=== PATIENT | male | born 1950 | race Caucasian/White ===

== ENCOUNTER → 2018-03-09 11:44 | Outpatient (CLI) | payer MEDICARE, OTHER, SELFPAY ==
[2018-03-09 15:30] LABS: Absolute Lymphocyte Count 1.96 X10^3/ul (0.83-4.51); Absolute Neutrophil Count 3.9 X10^3/uL (2.0-7.7); Basophil# 0.04 X10^3/uL; Basophil% 0.6 % (0-1); Eosinophil# 0.17 X10^3/uL; Eosinophils% 2.5 % (0-5); Hematocrit 44.3 % (40-54); Hemoglobin 14.6 g/dl (13.0-16.5); Lymphocyte # 1.96 X10^3/ul (4.0); Lymphocyte % 28.7 % (19-41); Mean Corpuscular Hgb 31.1 pg (27.0-32.0); Mean Corpuscular Volume 94.5 fL (80-94); Mean Platelet Vol. 11.4 fl (6.2-12.0); Monocyte# 0.69 X10^3/uL; Monocyte% 10.1 % (0-10); Neutrophil # 3.94 X10^3/uL (2.7-7.7); Neutrophil % 57.8 % (47-70); Platelet Count 182 K/mm3 (150-450); RBC Distribution Width SD 43.6 fl (35.1-43.9); Red Blood Count 4.69 M/mm3 (4.6-6.2); White Blood Count 6.8 K/mm3 (4.4-11.0)
[2018-03-09 15:45] LABS: Anion Gap 7 (5-15); BUN 19 mg/dL (7-18); BUN/Creat Ratio 16.4 RATIO (10-20); Calcium,Total 8.4 mg/dL (8.5-10.1); Chloride 103 mmol/L (98-107); Cholesterol 185 mg/dL (200); Creatinine, Serum 1.16 mg/dL (0.70-1.30); EST Glomerular Filtration Rate 66 mL/min (>60); Est Glom Filt Rate - Afr Amer 80 mL/min (>60); Glucose 95 mg/dL (74-106); High Density Lipoprotein 58 mg/dL; Sodium Level 140 mmol/L (136-145); Thyroid Stim Hormone (TSH) 1.61 uIU/mL (0.358-3.74); Triglycerides 105 mg/dL; Very Low Density Lipoprotein 21 mg/dL (5-40)
[2018-03-09 15:51] LABS: POSITIVE COUNT NO; POSITIVE DIFFERENTIAL NO; POSITIVE MORPHOLOGY NO
== END ==
PROVIDERS: Family Provider Family Medicine; PCP Family Medicine; Visit Provider Family Medicine
DX: I10 Essential (primary) hypertension (principal)
CPT/HCPCS: 36415; 80048; 80061; 84443; 85025

== ENCOUNTER → 2019-03-15 | Outpatient (CLI) | payer MEDICARE, SELFPAY ==
[2019-03-15 12:29] LABS: Anion Gap 5 (5-15); BUN 27 mg/dL (7-18); BUN/Creat Ratio 21.3 RATIO (10-20); Calcium,Total 8.6 mg/dL (8.5-10.1); Chloride 102 mmol/L (98-107); Cholesterol 211 mg/dL (200); Creatinine, Serum 1.27 mg/dL (0.70-1.30); EST Glomerular Filtration Rate 59 mL/min (>60); Est Glom Filt Rate - Afr Amer 72 mL/min (>60); Glucose 103 mg/dL (74-106); High Density Lipoprotein 51 mg/dL; PSA,Total - Annual Screen 0.67 ng/mL (0.00-4.00); Potassium 4.3 mmol/L (3.5-5.1); Sodium Level 137 mmol/L (136-145); Triglycerides 120 mg/dL; Very Low Density Lipoprotein 24 mg/dL (5-40)
== END | disposition home or self-care (01) ==
PROVIDERS: Family Provider Family Medicine; PCP Family Medicine; Referring Provider Family Medicine; Visit Provider Family Medicine
DX: Z00.00 Encounter for general adult medical examination without abnormal findings (principal); I10 Essential (primary) hypertension; Z12.5 Encounter for screening for malignant neoplasm of prostate
CPT/HCPCS: 36415; 80048; 80061; 84153; G0103

== ENCOUNTER 2019-07-11 06:18 | Day surgery (SDC) | payer MEDICARE, OTHER, SELFPAY ==
[2019-07-11] VITALS (7 sets, daily range): BP systolic 104–143; BP diastolic 62–76; PULSE 59–62; RESP 16; TEMP 36.7–37.2; O2SAT 97–100; BMI 29.2
--- NOTE | 2019-07-11 07:02 | H&P.OPEN ---
History of Present Illness Date of Admission: 07/11/19 The patient is a 69 year old M who presents for a colonoscopy. His last colonoscopy was 3 years ago and he was noted to have a polyp at that time. Past Medical/Surgical History - Planned Operation Planned Operative Procedure/s: cscope open access Date of Operative Procedure: 07/11/19 Permit Signed: No S.O.S: No Is This Patient Having a Total Joint: No - Previous Hospitalizations/Surgeries HX Hospitalizations: No HX of Surgeries: cscope Any Problems With Anesthesia: No You/Your Family Experience Fever (Hyperthermia) With Anes: No Cholinesterase deficiency: No - Cardiovascular Hx Chest Pain within Last 2 months: No Hx of Irregular Heartbeat and/or Afib: No Hx Heart Attack: No Hx Congestive Heart Failure: No Hx Rheumatic Fever: No Hx Hypertension: Yes - controlled with med Hx Internal Defibrillator: No Hx Pacemaker: No Hx Cardiac Catheterization: No Hx Cardiac Surgery/Stents/Etc.: No Hx Stress Test: No HX Edema: No Hx Pain in Legs when Walking/Leg Cramps: No - Respiratory Chronic Cough: No HX of Shortness of Breath: No Hoarseness: No Hx Chronic Obstructive Pulmonary Disease (COPD): No Hx Asthma: No Hx Emphysema: No Hx Sleep Apnea: No Hx Oxygen Use at Home: No Hx Respiratory Tract Infection/Cold (presently): No Do You Snore Loudly (louder than talking or can be heard): No Do You Often Feel Tired/ Fatigued/ Sleepy Dring Daytime?: No Has Anyone Observed You Stop Breathing During Sleep?: No Result (for STOP score): Negative Hx Smoking: Yes - quit 29 yrs ago Smoking Status: Former smoker - Gastrointestinal Hx Gastroesophageal Reflux: No Hx Gastrointestinal Disorders: No Hx Gastrointestinal Bleed: No Hx Ulcer: No Hx Hiatal Hernia: No Difficulty Chewing/Swallowing: No Recent Onset of Swallowing Problems: No Special diet followed at home: No Hx Unplanned Weight Loss of 20#: No HX Unplanned Weight Gain of 20#: No - Neurological Hx Seizures: No HX Syncope/Blackout Spells/Unconsciousness: No Hx CVA/Stroke: No Hx Transient Ischemic Attacks (TIA): No Hx Multiple Sclerosis: No Hx Parkinson's Disease: No Hx Head/Neck Injury: No Hx Headaches: No Hx Back Injury/Pain: No Recent Onset of Speech Difficulty: No Restless Legs: No Does patient have nerve stimulator: No Patient instructed to have device shut off: No Rep notified?: No - Blood Disorder Hx Leukemia: No Bleeding Tendencies: No Hx Deep Vein Thrombosis: No Hx High Cholesterol: No Blood Transmitted Disease: No Hx Hepatitis: No Hx Cirrhosis: No Hx Anemia: No Hx Blood Disorders: No - Genitourinary Hx Renal Disease: No - Musculoskeletal Hx Arthritis: No Hx Rheumatoid Arthritis: No Hx Gout: No Recent Onset of an Orthopedic Problem: No - Endocrine Hx Diabetes: No Thyroid Disease: No Hx Steroid Therapy: No - Psycho/Social Hx Substance Use: No Hx Alcohol Use: Yes - occ Hx Anxiety: No Hx Depression: No Mental Illness: No Hx Dementia: No - Miscellaneous Hx Cancer: No Recent Exposure to Contagious Disease: No Active MRSA: No Hx of C-Diff: No Any Loose Teeth: No - full denture Allergies No Known Allergies Allergy (Verified 07/07/19 14:27) - Discharge Is Pt Admitted From a Half-Way, or a Fpc: No Who Could Help: family After D/C, Where Do you Plan to Go: Return Home - From the PAT History Number of Risk Factors: 1 - Physical Exam General: Alert, Oriented x3 Lungs: Clear to auscultation Cardiovascular: Regular rate, Regular Rhythm, No murmurs Abdomen: Bowel Sounds Present, Soft, Non Tender, Non-Distended Vital Signs Temp Pulse Resp BP Pulse Ox 98.3 F 61 16 143/72 H 100 07/11/19 06:40 07/11/19 06:40 07/11/19 06:40 07/11/19 06:40 07/11/19 06:40 Oxygen Delivery Method Room Air Weight: 210 lb 1.608 oz Body Mass Index (BMI) 29.2 Assessment/Plan Plan will be to perform a colonoscopy. Surgery Risks - Colonoscopy Risks Include but are not Limited To: Risks include but are not limited to: Bleeding, perforation requiring further surgery, inability to complete colonoscopy requiring barium enema.
--- NOTE | 2019-07-11 07:27 | OP.ENDO_ITS ---
07/11/2019 Radha Schulz [address] [place] [address] Re : Colonoscopy procedure for Jose Piper Dear Dr. Schulz This procedure was performed on Thursday, July 11, 2019. My impressions and recommendations are as follows: Impressions : - Diverticulosis in the sigmoid colon, in the descending colon, in the transverse colon and in the ascending colon. No specimens collected. - One 4 mm polyp in the sigmoid colon, removed with a jumbo cold forceps. Resected and retrieved. - The examination was otherwise normal. - The examined portion of the ileum was normal. Recommendations : - Discharge patient to home. - Resume previous diet. - Continue present medications. - Await pathology results. - Repeat colonoscopy in 5 years for surveillance. - Return to my office in 1 week. My findings are described in the full procedure note, which is enclosed. If I can be of further assistance, please feel free to contact me at Doctor phone number(s): , Fax: [phone], Work: . Sincerely, MD Declan Vazquez MD 07/11/2019 7:27:40 AM This report has been signed electronically.
--- NOTE | 2019-07-11 07:30 | COLBX_PTH ---
PATIENT: LIA MEDEL LOC: EN U#:[id number] AGE/SX: 69/M ROOM: RE07/11/[address]: Dr. Declan Freeman MD : [id number] BED: DIS: 07/11/2019 SPEC #: [id number] RECD: 07/11/19 11:26 STATUS: NAWAF DAYO #: [id number] DIVNIA: 07/11/19 07:[address]: Declan Freeman DEPT: SURGICAL PATHOLOGY RECD BY: Matthew Noble ENTERED: 07/11/19 13:36 SP TYPE: COLON BX OTHR DR: Dr. Radha Schulz MD Tissues: Sigmoid colon biopsy Procedures: Surgery Specimen Level IV HEADER OPERATION: Colonoscopy, open access (MAC) PRE-OP DIAGNOSIS: Screening colonoscopy, status post history of colon polyp TISSUE SUBMITTED: Polyp at sigmoid MICROSCOPIC DIAGNOSIS Sigmoid colon polyp, biopsy: Fragments of hyperplastic polyp. AM:dm 07/12/2019 MICROSCOPIC DESCRIPTION Slides are reviewed. GROSS DESCRIPTION Received is one container labeled with the patient name and designated polypoid sigmoid. The specimen consists of multiple fragments of light leahy soft tissue that in aggregate measure 1 x 0.3 x 0.1cm. The specimen is totally submitted in one cassette. /SJ:sp 07/11/19 TC: 5 CPT:97419
== END 2019-07-11 08:05 | disposition home or self-care (01) ==
LOC: EN 06:20 → AC 06:23
PROVIDERS: Family Provider Family Medicine; PCP Family Medicine; Referring Provider Family Medicine; Visit Provider Surgery
PROC: 0DJD8ZZ Inspection of Lower Intestinal Tract, Via Natural or Artificial Opening Endoscopic (ICD-10-PCS; CPT 45378; principal; 2019-07-11 07:25)
DX: Z12.11 Encounter for screening for malignant neoplasm of colon (principal); K63.5 Polyp of colon; K57.30 Diverticulosis of large intestine without perforation or abscess without bleeding; Z86.010 Personal history of colon polyps; I10 Essential (primary) hypertension; Z79.899 Other long term (current) drug therapy; Z87.891 Personal history of nicotine dependence
CPT/HCPCS: 45380; 88305; J7120

== ENCOUNTER → 2019-08-19 | Outpatient (CLI) | payer MEDICARE, OTHER, SELFPAY ==
[2019-07-11 06:40] VITALS: BMI 29.2
--- NOTE | 2019-08-19 13:02 | VDLE_ITS ---
Reason For Study: Lt leg pain RIGHT LEFT CFV is compressible, spontaneous, phasic, GSV is normal. competent and demonstrates normal CFV is compressible, spontaneous, phasic, augmentation. competent, and demonstrates normal Procedure augmentation. Exam performed in department. FV is compressible, spontaneous, phasic, A preliminary report was called and/or faxed competent and demonstrates normal to Jazz. augmentation. POP V is compressible, spontaneous, phasic, competent and demonstrates normal augmentation. T/P Trunk is compressible. PTV is compressible. LT PerV is compressible. Thrombus filled varicose veins extending from the posterior lateral popliteal space to the posterior proximal calf. Interpretation Summary Deep veins of the left lower extremity are patent and compressible segmentally. There is no evidence of left lower extremity deep vein thrombosis. Valvular competence appears intact within the proximal deep venous system on the left . The left great saphenous vein appears patent and compressible segmentally. Acute superficial thrombophlebitis is noted involving superficial varicosities in the left lateral popliteal space and posterior proximal calf. Ordering Physician: Radha Schulz Referring Physician: Radha Schulz Performed By: Cece Tapia RVT
== END | disposition home or self-care (01) ==
LOC: CVS 12:59
PROVIDERS: Family Provider Family Medicine; PCP Family Medicine; Referring Provider Family Medicine; Visit Provider Family Medicine
DX: M79.605 Pain in left leg (principal)
CPT/HCPCS: 93971

== ENCOUNTER → 2019-09-12 | Outpatient (CLI) | payer MEDICARE, OTHER, SELFPAY ==
[2019-07-11 06:40] VITALS: BMI 29.2
[2019-09-12 12:36] LABS: Anion Gap 5 (5-15); BUN 27 mg/dL (7-18); Calcium,Total 8.6 mg/dL (8.5-10.1); Chloride 104 mmol/L (98-107); Creatinine, Serum 1.35 mg/dL (0.70-1.30); EST Glomerular Filtration Rate 55 mL/min (>60); Est Glom Filt Rate - Afr Amer 67 mL/min (>60); Glucose 102 mg/dL (74-106); Potassium 4.7 mmol/L (3.5-5.1); Sodium Level 139 mmol/L (136-145)
== END | disposition home or self-care (01) ==
LOC: MFPLAB 10:13
PROVIDERS: Family Provider Family Medicine; PCP Family Medicine; Visit Provider Family Medicine
DX: I10 Essential (primary) hypertension (principal)
CPT/HCPCS: 36415; 80048

== ENCOUNTER → 2019-12-26 | Outpatient (CLI) | payer MEDICARE, OTHER, SELFPAY ==
[2019-07-11 06:40] VITALS: BMI 29.2
[2019-12-26 15:57] LABS: Anion Gap 5 (5-15); BUN 34 mg/dL (7-18); BUN/Creat Ratio 21.2 RATIO (10-20); Calcium,Total 9.1 mg/dL (8.5-10.1); Chloride 107 mmol/L (98-107); EST Glomerular Filtration Rate 45 mL/min (>60); Est Glom Filt Rate - Afr Amer 55 mL/min (>60); Glucose 90 mg/dL (74-106); Potassium 4.4 mmol/L (3.5-5.1); Sodium Level 139 mmol/L (136-145)
== END | disposition home or self-care (01) ==
LOC: MFPLAB 14:25
PROVIDERS: PCP Family Medicine; Referring Provider Family Medicine; Visit Provider Family Medicine
DX: I10 Essential (primary) hypertension (principal)
CPT/HCPCS: 36415; 80048

== ENCOUNTER → 2020-04-03 15:58 | Outpatient (CLI) | payer MEDICARE, OTHER, SELFPAY ==
[2019-07-11 06:40] VITALS: BMI 29.2
[2020-04-03 17:43] LABS: Absolute Lymphocyte Count 1.48 X10^3/uL (0.83-4.51); Absolute Neutrophil Count 4.2 X10^3/uL (2.0-7.7); Basophil# 0.05 X10^3/uL; Basophil% 0.8 % (0-1); Eosinophil# 0.19 X10^3/uL; Eosinophils% 2.9 % (0-5); Hematocrit 40.1 % (40-54); Lymphocyte # 1.48 X10^3/ul (4.0); Lymphocyte % 22.6 % (19-41); Mean Corp Hgb Conc 32.4 g/dL (32-36); Mean Corpuscular Volume 95.7 fL (80-94); Mean Platelet Vol. 11.1 fl (6.2-12.0); Monocyte# 0.63 X10^3/uL; Monocyte% 9.6 % (0-10); NRBC Flagged by Analyzer 0 % (0-5); Neutrophil # 4.19 X10^3/uL (2.7-7.7); Neutrophil % 63.8 % (47-70); Platelet Count 193 K/mm3 (150-450); RBC Distribution Width CV 12.6 % (11.6-14.6); RBC Distribution Width SD 44.2 fl (35.1-43.9); Red Blood Count 4.19 M/mm3 (4.6-6.2); White Blood Count 6.6 K/mm3 (4.4-11.0)
[2020-04-03 18:15] LABS: Anion Gap 6 (5-15); BUN 30 mg/dL (7-18); BUN/Creat Ratio 20.5 RATIO (10-20); Calcium,Total 8.9 mg/dL (8.5-10.1); Chloride 107 mmol/L (98-107); Creatinine, Serum 1.46 mg/dL (0.70-1.30); EST Glomerular Filtration Rate 50 mL/min (>60); Est Glom Filt Rate - Afr Amer 61 mL/min (>60); Glucose 94 mg/dL (74-106); Potassium 4.2 mmol/L (3.5-5.1); Sodium Level 140 mmol/L (136-145)
== END ==
PROVIDERS: PCP Family Medicine; Visit Provider Family Medicine
DX: R42 Dizziness and giddiness (principal)
CPT/HCPCS: 36415; 80048; 84443; 85025

== ENCOUNTER → 2020-08-10 | Outpatient (CLI) | payer MEDICARE, OTHER, SELFPAY ==
[2019-07-11 06:40] VITALS: BMI 29.2
[2020-08-10 12:43] LABS: Anion Gap 3 (5-15); BUN 23 mg/dL (7-18); Calcium,Total 9.1 mg/dL (8.5-10.1); Chloride 105 mmol/L (98-107); Cholesterol 207 mg/dL (200); Creatinine, Serum 1.35 mg/dL (0.70-1.30); EST Glomerular Filtration Rate 55 mL/min (>60); Est Glom Filt Rate - Afr Amer 67 mL/min (>60); Glucose 99 mg/dL (74-106); High Density Lipoprotein 66 mg/dL; PSA,Total - Annual Screen 0.67 ng/mL (0.00-4.00); Potassium 4.5 mmol/L (3.5-5.1); Sodium Level 138 mmol/L (136-145); Triglycerides 104 mg/dL; Very Low Density Lipoprotein 21 mg/dL (5-40)
== END | disposition home or self-care (01) ==
LOC: MFPLAB 10:37
PROVIDERS: PCP Family Medicine; Referring Provider Family Medicine; Visit Provider Family Medicine
DX: I10 Essential (primary) hypertension (principal); Z12.5 Encounter for screening for malignant neoplasm of prostate
CPT/HCPCS: 36415; 80048; 80061; 84153; G0103

== ENCOUNTER → 2020-10-30 | Outpatient (CLI) | payer MEDICARE, OTHER, SELFPAY ==
[2019-07-11 06:40] VITALS: BMI 29.2
== END | disposition home or self-care (01) ==
PROVIDERS: PCP Family Medicine; Referring Provider Family Medicine; Visit Provider Family Medicine
DX: U07.1 COVID-19 (principal)
CPT/HCPCS: 87635; U0003

== ENCOUNTER → 2021-02-08 10:53 | Outpatient (CLI) | payer MEDICARE, OTHER, SELFPAY ==
[2019-07-11 06:40] VITALS: BMI 29.2
[2021-02-08 12:14] LABS: Anion Gap 6 (5-15); BUN 28 mg/dL (7-18); BUN/Creat Ratio 19.7 RATIO (10-20); Calcium,Total 8.9 mg/dL (8.5-10.1); Chloride 103 mmol/L (98-107); Creatinine, Serum 1.42 mg/dL (0.70-1.30); EST Glomerular Filtration Rate 52 mL/min (>60); Est Glom Filt Rate - Afr Amer 63 mL/min (>60); Glucose 101 mg/dL (74-106); Potassium 4.5 mmol/L (3.5-5.1); Sodium Level 139 mmol/L (136-145)
== END ==
PROVIDERS: PCP Family Medicine; Referring Provider Family Medicine; Visit Provider Family Medicine
DX: I10 Essential (primary) hypertension (principal)
CPT/HCPCS: 36415; 80048

== ENCOUNTER → 2021-08-21 12:07 | Outpatient (CLI) | payer MEDICARE, SELFPAY ==
[2021-08-21 15:37] LABS: Anion Gap 4 (5-15); BUN 24 mg/dL (7-18); BUN/Creat Ratio 17.8 RATIO (10-20); Calcium,Total 8.8 mg/dL (8.5-10.1); Chloride 105 mmol/L (98-107); Cholesterol 187 mg/dL (200); Creatinine, Serum 1.35 mg/dL (0.70-1.30); EST Glomerular Filtration Rate 55 mL/min (>60); Est Glom Filt Rate - Afr Amer 67 mL/min (>60); Glucose 93 mg/dL (74-106); High Density Lipoprotein 63 mg/dL; PSA,Total - Annual Screen 0.73 ng/mL (0.00-4.00); Potassium 4.3 mmol/L (3.5-5.1); Sodium Level 140 mmol/L (136-145); Triglycerides 76 mg/dL; Very Low Density Lipoprotein 15 mg/dL (5-40)
== END ==
PROVIDERS: PCP Family Medicine; Referring Provider Family Medicine; Visit Provider Nurse Practitioner Family
DX: Z00.00 Encounter for general adult medical examination without abnormal findings (principal); Z12.5 Encounter for screening for malignant neoplasm of prostate; Z13.220 Encounter for screening for lipoid disorders
CPT/HCPCS: 36415; 80048; 80061; 84153; G0103

== ENCOUNTER 2021-08-22 14:41 | Observation (INO) | payer MEDICARE, SELFPAY ==
[2021-08-22] VITALS (10 sets, daily range): BP systolic 131–167; BP diastolic 60–107; PULSE 85–112; RESP 12–22; TEMP 36.4–36.8; O2SAT 98–100; BMI 27.6; BMI 26.0
--- NOTE | 2021-08-22 15:00 | RAD_ITS ---
STUDY: X-RAY CHEST REASON FOR EXAM: Male, 71 years old. chest pain TECHNIQUE: AP COMPARISON: None. FINDINGS: EKG leads project over the chest. The lungs are clear and expanded. There is no demonstrated pleural abnormality. Normal size heart. Normal mediastinum and luis. Normal visualized pulmonary arteries. Atherosclerosis of the aortic arch. Normal visualized thoracic spine. Normal visualized ribs, clavicles, and shoulders. There is no demonstrated abnormality of the visualized soft tissue structures of the upper abdomen. RAD/Chest 1 View (Portable) IMPRESSION: Nonacute portable x-ray examination of the chest. Electronically Signed: Christiano Gavin MD ([place]) at 15:40 EDT , Service support ,
[2021-08-22 15:26] LABS: Absolute Lymphocyte Count 1.95 X10^3/uL (0.83-4.51); Absolute Neutrophil Count 5.6 X10^3/uL (2.0-7.7); Basophil# 0.04 X10^3/uL; Basophil% 0.5 % (0-1); Eosinophil# 0.15 X10^3/uL; Eosinophils% 1.8 % (0-5); Hematocrit 42.9 % (40-54); Hemoglobin 14.1 g/dL (13.0-16.5); Lymphocyte # 1.95 X10^3/ul (0.83-4.51); Mean Corp Hgb Conc 32.9 g/dL (32-36); Mean Corpuscular Hgb 31.2 pg (27.0-32.0); Mean Corpuscular Volume 94.9 fL (80-94); Mean Platelet Vol. 11.4 fl (6.2-12.0); Monocyte# 0.74 X10^3/uL; Monocyte% 8.7 % (0-10); NRBC Flagged by Analyzer 0 % (0-5); Neutrophil # 5.55 X10^3/uL (2.7-7.7); Neutrophil % 65.6 % (47-70); Platelet Count 180 K/mm3 (150-450); RBC Distribution Width CV 12.5 % (11.6-14.6); RBC Distribution Width SD 43.3 fl (35.1-43.9); Red Blood Count 4.52 M/mm3 (4.6-6.2); White Blood Count 8.5 K/mm3 (4.4-11.0)
[2021-08-22 15:45] LABS: Anion Gap 8 (5-15); BUN 20 mg/dL (7-18); BUN/Creat Ratio 13.5 RATIO (10-20); Calcium,Total 8.9 mg/dL (8.5-10.1); Chloride 105 mmol/L (98-107); Creatinine, Serum 1.48 mg/dL (0.70-1.30); EST Glomerular Filtration Rate 49 mL/min (>60); Est Glom Filt Rate - Afr Amer 60 mL/min (>60); Estimated Creatinine Clearance 47.35 ml/min; Glucose 141 mg/dL (74-106); Magnesium 1.9 mg/dL (1.6-2.6); Potassium 3.4 mmol/L (3.5-5.1); Sodium Level 141 mmol/L (136-145); Thyroid Stim Hormone (TSH) 1.19 uIU/mL (0.358-3.74); Troponin-I HS 6 pg/mL (3.0-78.0)
--- NOTE | 2021-08-22 16:05 | EKG12_ITS ---
Test Reason : CP Blood Pressure : / mmHG Vent. Rate : 112 BPM Atrial Rate : 112 BPM P-R Int : 184 ms QRS Dur : 096 ms QT Int : 316 ms P-R-T Axes : 051 022 006 degrees QTc Int : 431 ms Sinus tachycardia Nonspecific ST abnormality Abnormal ECG Confirmed by REYNALDO NGUYEN, LING ([id number]), slot editor RABIA WEBB ([id number]) on 08/26/2021 12:21:24 PM Referred By: AMANDA Confirmed By:DAYRON JACOBS MD
[2021-08-22 16:23] LABS: International Normalized Ratio 1.1; Prothrombin Time (Protime)PT. 13.2 SECONDS (11.7-14.9)
[2021-08-22 16:24] LABS: Partial Thromboplast Time 27.7 Seconds (24.1-36.2)
[2021-08-22 16:37] LABS: D-Dimer Quantitative (DVT/PE) 0.34 FEU/ug/m (0.27-0.49)
[2021-08-22 16:48] LABS: BNP,B-Type NATRIURETIC PEPTIDE 64.4 pg/mL (0-100)
[2021-08-22] MEDS: Nitroglycerin SL (ED/IMG/CATH) 0.4 MG TABLET SL ×3 (17:19→17:28)
[2021-08-22 17:58] LABS: Troponin-I HS 40 pg/mL (3.0-78.0)
--- NOTE | 2021-08-22 18:12 | EKG12_ITS ---
Test Reason : REPEAT Blood Pressure : / mmHG Vent. Rate : 097 BPM Atrial Rate : 097 BPM P-R Int : 150 ms QRS Dur : 088 ms QT Int : 348 ms P-R-T Axes : 015 -01 016 degrees QTc Int : 441 ms Normal sinus rhythm Nonspecific ST abnormality Abnormal ECG Confirmed by REYNALDO NGUYEN, LING ([id number]), web editor RABIA WEBB ([id number]) on 08/26/2021 12:21:46 PM Referred By: KATY Confirmed By:DAYRON JACOBS MD
--- NOTE | 2021-08-22 19:06 | EX.ED.DYSGE1 ---
HPI History of Present Illness Chief Complaint: Chest Other Narrative Narrative: Patient is a 71-year-old male with past medical history of hypertension. He states he lost his 2 years ago and he will have typically some type of anxiety attack once a week. He states he began feeling nervous and anxious today and felt slightly short of breath with mild chest discomfort. He reports he called 911 because of this. EMS did their evaluation of the patient and had a twelve-lead sent to the hospital which did show ST segment depression in multiple leads. Secondary to this he was advised to come in for evaluation. Patient states that upon arrival he is feeling much better and he denies having any active chest pain or shortness of breath [facility] Medical History HTN (hypertension) Home Medications lisinopril-hydrochlorothiazide 1 ea PO DAILY 07/07/19 [History Last Taken Unknown] metoprolol tartrate 100 mg PO DAILY 07/07/19 [History Last Taken Unknown] potassium chloride 10 meq PO DAILY 07/07/19 [History Last Taken Unknown] Allergy/AdvReac Type Severity Reaction Status Date / Time No Known Allergies Allergy Verified 08/22/21 14:50 Social History Smoking Status: Former smoker ROS ROS ED Constitutional Constitutional ED: Denies chills or fever(s) ENT ENT ED: Denies sore throat Cardiovascular Cardiovascular: Reports chest pain Respiratory/Chest Respiratory/Chest: Reports dyspnea; Denies cough Gastrointestinal Gastrointestinal: Denies abdominal pain, diarrhea, nausea or vomiting Genitourinary Genitourinary ED: Denies dysuria Musculoskeletal Musculoskeletal: Denies myalgias Integumentary Denies rash Neurologic Neurologic: Denies headache(s) Psychiatric Psychiatric: Reports anxiety Hematologic/Lymphatic Hematologic/Lymphatic: Denies easy bleeding or easy bruising EXAM Physical Exam Const Vital Signs: 08/22/21 14:44 08/22/21 14:52 08/22/21 16:07 Temperature 98.3 F Temperature Source Temporal Pulse Rate 108 H 100 Respiratory Rate 16 16 Respiratory Effort Normal Non-Labored Blood Pressure 167/60 H Blood Pressure Mean 95 Pulse Ox 100 100 Oxygen Delivery Method Room Air Room Air 08/22/21 16:59 08/22/21 17:19 08/22/21 17:23 Temperature Temperature Source Pulse Rate 106 H 100 107 H Respiratory Rate 22 H Respiratory Effort Blood Pressure 148/68 H 165/107 H 164/81 H Blood Pressure Mean 94 Pulse Ox 99 Oxygen Delivery Method Room Air 08/22/21 17:28 08/22/21 19:05 Temperature 98.3 F Temperature Source Temporal Pulse Rate 112 H 86 Respiratory Rate 22 H Respiratory Effort Blood Pressure 131/76 H 163/78 H Blood Pressure Mean 106 Pulse Ox 100 Oxygen Delivery Method Room Air Positive well nourished and well developed General Appearance ED: well developed HEENT Reports moist mucous membranes Eyes PERRL and EOMs intact bilaterally Neck supple and no JVD Chest Wall palpation of chest normal Resp normal respiratory effort and clear to auscultation bilaterally Cardio regular rhythm Rate: tachycardic and other Other Details: tachycardic rate with regular rhythm radial pulses are plus 2 out of 4 bilaterally GI normal to inspection, nondistended, normoactive bowel sounds, non-tender and non-distended Auscultation: normoactive bowel sounds Palpation: soft Extremity Extremity Narrative: And has +1-2 pitting edema to the bilateral lower extremities is equal and symmetric with negative Homans' sign Neuro oriented x3 and CN's II-XII intact bilaterally Sensorium / Orientation: alert Motor Exam: strength 5/5 throughout Psych mental status grossly normal Skin no rashes or lesions noted MDM MDM MDM Narrative Medical decision making narrative: Patient presented to the ER tachycardic and hypertensive but states he was feeling better. With his EKG from [facility] showing ST segment depression and his moderate heart risk factors a cardiac work-up was obtained. Initial troponin was 6 but 2-hour repeat was elevated at 40. The patient was given a nitro trial and did have improvement of his blood pressure and heart rate and a repeat EKG did show improvement of the ST segment depressions. I discussed the case with cardiology who reviewed the EKGs and do agree with observational placement and stress test in the morning. Treatment plan was discussed with the patient and he is agreeable to this at this time Lab Data Attestation: I reviewed the patient's lab results. Labs: Laboratory Results - last 24 hr 08/22/21 08/22/21 08/22/21 15:10 15:15 15:15 WBC 8.5 RBC 4.52 L Hgb 14.1 Hct 42.9 MCV 94.9 H MCH 31.2 MCHC 32.9 RDW Std Deviation 43.3 RDW Coeff of Regulo 12.5 Plt Count 180 MPV 11.4 Immature Gran % (Auto) 0.400 Neut % (Auto) 65.6 Lymph % (Auto) 23.0 [place] % (Auto) 8.7 Eos % (Auto) 1.8 Baso % (Auto) 0.5 Absolute Neuts (auto) 5.6 Absolute Lymphs (auto) 1.95 Nucleated RBC % 0 PT Cancelled INR Cancelled APTT Cancelled D-Dimer Quant (PE/DVT) Cancelled Sodium 141 Potassium 3.4 L Chloride 105 Carbon Dioxide 28.0 Anion Gap 8 BUN 20 H Creatinine 1.48 H Estim Creat Clear Calc 47.35 Est GFR (MDRD) Af Amer 60 Est GFR (MDRD) Non-Af 49 L BUN/Creatinine Ratio 13.5 Glucose 141 H Calcium 8.9 Magnesium 1.9 Troponin I High Sens 6 B-Natriuretic Peptide TSH 1.19 08/22/21 08/22/21 08/22/21 15:15 16:00 17:20 WBC RBC Hgb Hct MCV MCH MCHC RDW Std Deviation RDW Coeff of Regulo Plt Count MPV Immature Gran % (Auto) Neut % (Auto) Lymph % (Auto) [place] % (Auto) Eos % (Auto) Baso % (Auto) Absolute Neuts (auto) Absolute Lymphs (auto) Nucleated RBC % PT 13.2 INR 1.1 APTT 27.7 D-Dimer Quant (PE/DVT) 0.34 Sodium Potassium Chloride Carbon Dioxide Anion Gap BUN Creatinine Estim Creat Clear Calc Est GFR (MDRD) Af Amer Est GFR (MDRD) Non-Af BUN/Creatinine Ratio Glucose Calcium Magnesium Troponin I High Sens 40 B-Natriuretic Peptide 64.4 TSH Radiography Diagnostic Testing: Clinical Impression(s) from Imaging Studies Chest X-Ray 08/22/21 15:00 IMPRESSION: Nonacute portable x-ray examination of the chest. Electronically Signed: Christiano Gavin MD ([place]) at 15:40 EDT , Service support , Discharge Plan Triage Chief Complaint: Chest Other ED Provider: Craig Walker Dx/Rx/DC Orders Clinical Impression: Nonspecific chest pain, Elevated troponin, Abnormal EKG Prescriptions: No Action metoprolol tartrate 100 MG tablet 100 mg PO DAILY RF: 0 potassium chloride 10 MEQ tablet extended release 10 meq PO DAILY RF: 0 lisinopril-hydrochlorothiazide 1 EACH tablet 1 ea PO DAILY RF: 0 Primary Care Provider: Radha Schulz Referrals: Radha Schulz MD [Primary Care Provider] - Disposition Disposition: Acute Care Hospital [facility]
--- NOTE | 2021-08-22 19:38 | PCM.HP.STD ---
[facility] - General General Date of Admission: 08/22/21 HPI Narrative LIA MEDEL, is a 71 M who presented to the emergency department [facility] on 08/22/2021 with a chief complaint of chest discomfort and an anxiety attack. The patient has a past medical history of hypertension, a remote history of tobacco abuse, and a strong familial history of coronary disease with his father having his first heart attack in his 50s who presented to the emergency department with the sensation of feeling nervous and anxious. He felt slightly short of breath and he had mild chest discomfort on initial presentation but this has resolved since. [place] [address] [place] nearest fire station and was checked out and because of his symptoms EMS brought him to the emergency department. The initial twelve-lead EKG done by the squad showed some ST segment depression predominantly J-point depression in leads V3 through V6. He was given 3 doses of sublingual nitroglycerin and his repeat EKG showed resolution of his J-point depression. He states he currently feels back to baseline. He does have some bilateral lower extremity edema which he reports is dependent in nature and has been problematic for probably 2 years now. His 2 years ago and he has been having these anxiety attacks approximately once a week since then. He denied any associated diaphoresis, nausea, or vomiting with his event. On his initial presentation he was tachycardic with heart rates between 106-112 and hypertensive. His blood pressure and his heart rates improved after his nitroglycerin. He is currently completely asymptomatic. His CMP is unimpressive. His coags are normal. His D-dimer was 0.34. His BMP shows mild hypokalemia 3.4 which evidently is a chronic problem for him as he is on chronic potassium supplementation. His BUN was 20 which appears to be about baseline 1.48 which again appears to be about baseline for him (1.35-1.6). Serum glucose was mildly elevated at 141. His magnesium level was normal. His TSH was 1.19. His BNP was 64.4 and a troponin was obtained with an initial of 6 but a delta at 40. The case was discussed by the ER physician with claims coordinator and they recommended admission for stress testing. He will be admitted to PCU and a treadmill stress test is ordered for the morning. [facility] Medical History (Updated 08/22/21 @ 19:[address] Sharon Lares DO) HTN (hypertension) Hypokalemia Home Medications lisinopril-hydrochlorothiazide 1 ea PO DAILY 07/07/19 [History Last Taken Unknown] metoprolol tartrate 100 mg PO DAILY 07/07/19 [History Last Taken Unknown] potassium chloride 10 meq PO DAILY 07/07/19 [History Last Taken Unknown] Allergy/AdvReac Type Severity Reaction Status Date / Time No Known Allergies Allergy Verified 08/22/21 14:50 Family History (Updated 08/22/21 @ 19:[address] Sharon Lares DO) Mother Colon cancer Father CAD (coronary artery disease) Social History (Updated 08/22/21 @ 19:[address] Sharon Lares DO) Smoking Status: Former smoker how long ago did patient quit smokin years alcohol intake: current alcohol intake frequency: a few times a week Alcohol type: beer substance use type: does not use ROS Constitutional Constitutional: Denies anorexia, change in weight, chills, fatigue, fever(s), malaise, night sweats, weakness or other Eyes Eyes: Denies blurry vision, change in eye color, change in vision, discharge from eye(s), double vision, erythema, eye pain, loss of vision or other ENT HEENT: Denies abnormal hearing, dysphagia, ear pain, epistaxis, headache(s), hearing loss, nasal congestion, nasal discharge, post nasal drip, sinus pressure, sore throat or other Cardiovascular Cardiovascular: Reports chest pain, edema and rapid heart rate; Denies claudication, dyspnea on exertion, lightheadedness, orthopnea, palpitations, paroxysmal nocturnal dyspnea, syncope or other Respiratory/Chest Respiratory/Chest: Reports shortness of breath at rest; Denies cough, dyspnea, excessive phlegm production, hemoptysis, productive cough, shortness of breath with exertion, wheezing or other Gastrointestinal Gastrointestinal: Denies abdominal pain, coffee ground emesis, constipation, diarrhea, dyspepsia, hematemesis, hematochezia, loose stools, melena, nausea, vomiting or other Genitourinary Genitourinary: Denies burning urination, difficulty urinating, dysuria, hematuria, nocturia, urinary frequency, urinary hesitancy, urinary incontinence, urinary urgency or other Musculoskeletal Musculoskeletal: Denies arthralgias, back pain, joint pain, joint stiffness, joint swelling, myalgias, neck pain or other Neurologic Neurologic: Denies abnormal gait, abnormal speech, confusion, disequilibrium, dizziness, focal weakness, headache(s), numbness, paresthesias, seizure-like activity, seizures, syncope, tingling, tremor(s) or other Psychiatric Psychiatric: Reports anxiety; Denies depression, homicidal ideation, suicidal ideation or other Endocrine Endocrinology: Denies change in body appearance, cold intolerance, excessive sweating, heat intolerance, polydipsia, polyuria or other Hematologic/Lymphatic Hematologic/Lymphatic: Denies anemia, easy bleeding, easy bruising, lymphadenopathy or other Allergic/Immunologic Allergic/Immunologic: Denies rhinitis, hives, eczemia, asthma or other Vital Signs Vital Signs Vital Signs: 08/22/21 14:44 08/22/21 14:52 08/22/21 16:07 Temperature 98.3 F Temperature Source Temporal Pulse Rate 108 H 100 Respiratory Rate 16 16 Respiratory Effort Normal Non-Labored Blood Pressure 167/60 H Blood Pressure Mean 95 Pulse Ox 100 100 Oxygen Delivery Method Room Air Room Air 08/22/21 16:59 08/22/21 17:19 08/22/21 17:23 Temperature Temperature Source Pulse Rate 106 H 100 107 H Respiratory Rate 22 H Respiratory Effort Blood Pressure 148/68 H 165/107 H 164/81 H Blood Pressure Mean 94 Pulse Ox 99 Oxygen Delivery Method Room Air 08/22/21 17:28 08/22/21 19:05 08/22/21 19:28 Temperature 98.3 F 98.3 F Temperature Source Temporal Temporal Pulse Rate 112 H 86 85 Respiratory Rate 22 H 12 Respiratory Effort Blood Pressure 131/76 H 163/78 H 143/69 H Blood Pressure Mean 106 93 Pulse Ox 100 99 Oxygen Delivery Method Room Air Room Air Weight Weight: 89.721 kg Body Mass Index (BMI) 27.6 Physical Exam Const alert, oriented x3 and no apparent distress Constitutional Narrative: Older, overweight white male sitting up in bed, appears comfortable, nontoxic General Appearance: cooperative HEENT normocephalic, head/scalp atraumatic, hearing grossly normal bilaterally and moist oral mucous membranes HEENT Narrative: Dentures in place, Mallampati 2, no thrush Eyes PERRL, EOMs intact bilaterally and conjunctivae normal Eyes Narrative: No scleral icterus Neck no lymphadenopathy, supple, no JVD and no carotid bruits Neck Narrative: No thyroid enlargement, trachea midline Resp normal respiratory effort, no retractions, no use of accessory muscles and clear to auscultation bilaterally Auscultation: Negative for crackles, rales, rhonchi or wheezes Cardio regular rate, regular rhythm, S1 normal heart sound, S2 normal heart sound, no murmurs, no rub, no gallops, no clicks and no JVD GI normal to inspection, nondistended, normoactive bowel sounds, soft to palpation, non-tender and non-distended; Negative for hepatosplenomegaly Extremity full ROM Extremity Narrative: Trace to 1+ bilateral lower extremity pitting edema, no cyanosis or clubbing Peripheral Pulses: Yes pulses 2+ throughout Skin no rashes or lesions noted, no wounds, skin turgor normal, no jaundice, no petechiae and no mottling Skin Narrative: Mild bilateral lower extremity varicosities Neuro oriented x3, CN's II-XII intact bilaterally, moves all extremities and no focal motor deficits Sensorium / Orientation: awake and alert Speech: speech normal Motor Exam: strength 5/5 throughout Psych affect normal Psych Narrative: Currently is of anxiety Results Lab / Micro Data Result Diagrams: 08/22/21 15:15 08/22/21 15:15 Labs: Laboratory Results - last 24 hr 08/22/21 15:10: PT Cancelled, INR Cancelled, APTT Cancelled, D-Dimer Quant (PE/DVT) Cancelled 08/22/21 15:15: WBC 8.5, RBC 4.52 L, Hgb 14.1, Hct 42.9, MCV 94.9 H, MCH 31.2, MCHC 32.9, RDW Std Deviation 43.3, RDW Coeff of Regulo 12.5, Plt Count 180, MPV 11.4, Immature Gran % (Auto) 0.400, Neut % (Auto) 65.6, Lymph % (Auto) 23.0, Saunders % (Auto) 8.7, Eos % (Auto) 1.8, Baso % (Auto) 0.5, Absolute Neuts (auto) 5.6, Absolute Lymphs (auto) 1.95, Nucleated RBC % 0 08/22/21 15:15: Sodium 141, Potassium 3.4 L, Chloride 105, Carbon Dioxide 28.0, Anion Gap 8, BUN 20 H, Creatinine 1.48 H, Estim Creat Clear Calc 47.35, Est GFR (MDRD) Af Amer 60, Est GFR (MDRD) Non-Af 49 L, BUN/Creatinine Ratio 13.5, Glucose 141 H, Calcium 8.9, Magnesium 1.9, Troponin I High Sens 6, TSH 1.19 08/22/21 15:15: B-Natriuretic Peptide 64.4 08/22/21 16:00: PT 13.2, INR 1.1, APTT 27.7, D-Dimer Quant (PE/DVT) 0.34 08/22/21 17:20: Troponin I High Sens 40 Radiology Impression Chest X-Ray 08/22/21 15:00 IMPRESSION: Nonacute portable x-ray examination of the chest. Electronically Signed: Christiano Gavin MD (Brooks) at 15:40 EDT , Service support , Assessment & Plan Assessment/Plan (1) Nonspecific chest pain: (2) Abnormal EKG: PLAN: Chest discomfort -Patient with delta troponin elevation from 9-40 on repeat -EKG changes with J-point depression in leads V3 through V6--> concerned about distal LAD lesion -Responded to nitro -Patient with tobacco abuse history, paternal NH in his 50s, hypertension -Check lipids -Check A1c -As needed nitroglycerin -A.m. stress test-treadmill -Baby aspirin -Start Lipitor 80 mg at at bedtime EKG changes -As above Hypokalemia -Serum potassium is 3.4 -Magnesium is normal -40 mEq of p.o. potassium and repeat CMP in a.m. Hypertension -Continue lisinopril/HCTZ -Continue metoprolol CKD stage IIIb -Serum creatinine appears to be at baseline 1.3-1.6 -Wide nephrotoxins -Trend Anxiety -Patient seems to have prolonged issues with anxiety after the of his spouse -May want to consider initiating outpatient SSRI DVT prophylaxis -Lovenox CODE STATUS -Full code
--- NOTE | 2021-08-22 20:25 | EKG12_ITS ---
Test Reason : CP ADMISSION Blood Pressure : / mmHG Vent. Rate : 078 BPM Atrial Rate : 078 BPM P-R Int : 158 ms QRS Dur : 098 ms QT Int : 376 ms P-R-T Axes : 035 018 022 degrees QTc Int : 428 ms Normal sinus rhythm Normal ECG When compared with ECG of 16-APR-2013 02:07, Premature atrial complexes are no longer Present Confirmed by MYNOR NGUYEN, ELOISA ([id number]), food expeditor RABIA WEBB ([id number]) on 08/27/2021 9:53:55 AM Referred By: GAURI Confirmed By:ELOISA LOWE MD
[2021-08-22] MEDS: Atorvastatin Calcium 80 MG Tablet PO (21:19)
[2021-08-22] MEDS: Potassium Chloride Oral Tablet 20 MEQ 40 MEQ PO (21:19)
[2021-08-22 21:47] LABS: Troponin-I HS 63 pg/mL (3.0-78.0)
--- NOTE | 2021-08-22 21:49 | PCS.PANDOC ---
PANDEMIC DOCUMENTATION INITIATED: Date: 07/01/2021 Time: 190
[2021-08-22 21:54] LABS: Hemoglobin A1c 5.5 % (3.8-5.6)
[2021-08-23] VITALS (8 sets, daily range): BP systolic 150–153; BP diastolic 58–69; PULSE 52–83; RESP 12–16; TEMP 36.4–36.7; O2SAT 96–100
[2021-08-23] MEDS: Lisinopril 20 MG Tablet PO (05:53)
[2021-08-23] MEDS: Aspirin E.C. 81 MG Tablet PO (05:53)
[2021-08-23] MEDS: 0.9% Saline Lock 10 ML Syringe IV (05:53)
--- NOTE | 2021-08-23 05:55 | EKG12_ITS ---
Test Reason : AM EKG Blood Pressure : / mmHG Vent. Rate : 072 BPM Atrial Rate : 072 BPM P-R Int : 154 ms QRS Dur : 096 ms QT Int : 390 ms P-R-T Axes : 029 019 026 degrees QTc Int : 427 ms Normal sinus rhythm Normal ECG When compared with ECG of 22-AUG-2021 20:35, MANUAL COMPARISON REQUIRED, DATA IS UNCONFIRMED Confirmed by MYNOR NGUYEN, ELOISA ([id number]), advertising editor RABIA WEBB ([id number]) on 08/27/2021 9:53:08 AM Referred By: KAISER Confirmed By:ELOISA LOWE MD
[2021-08-23 06:16] LABS: Absolute Lymphocyte Count 1.65 X10^3/uL (0.83-4.51); Absolute Neutrophil Count 4.4 X10^3/uL (2.0-7.7); Basophil# 0.04 X10^3/uL; Basophil% 0.6 % (0-1); Eosinophil# 0.12 X10^3/uL; Eosinophils% 1.7 % (0-5); Hematocrit 40.1 % (40-54); Hemoglobin 13.2 g/dL (13.0-16.5); Lymphocyte # 1.65 X10^3/ul (0.83-4.51); Mean Corp Hgb Conc 32.9 g/dL (32-36); Mean Corpuscular Volume 94.1 fL (80-94); Mean Platelet Vol. 11.1 fl (6.2-12.0); Monocyte# 0.69 X10^3/uL; NRBC Flagged by Analyzer 0 % (0-5); Neutrophil # 4.37 X10^3/uL (2.7-7.7); Neutrophil % 63.6 % (47-70); Platelet Count 153 K/mm3 (150-450); RBC Distribution Width CV 12.7 % (11.6-14.6); RBC Distribution Width SD 43.6 fl (35.1-43.9); Red Blood Count 4.26 M/mm3 (4.6-6.2); White Blood Count 6.9 K/mm3 (4.4-11.0)
[2021-08-23 06:55] LABS: AST(SGOT) 16 U/L (15-37); Alanine Aminotransfer ALT/SGPT 22 U/L (16-61); Albumin, Serum 3.3 g/dL (3.2-5.0); Alkaline Phosphatase 57 U/L (45-117); Anion Gap 5 (5-15); BUN 16 mg/dL (7-18); BUN/Creat Ratio 12.7 RATIO (10-20); Calcium,Total 8.7 mg/dL (8.5-10.1); Chloride 108 mmol/L (98-107); Cholesterol 178 mg/dL (200); Creatinine, Serum 1.26 mg/dL (0.70-1.30); EST Glomerular Filtration Rate 60 mL/min (>60); Est Glom Filt Rate - Afr Amer 72 mL/min (>60); Estimated Creatinine Clearance 55.61 ml/min; Globulin 3.2 g/dL (2.2-4.2); Glucose 108 mg/dL (74-106); High Density Lipoprotein 56 mg/dL; Magnesium 1.8 mg/dL (1.6-2.6); Phosphorus 2.5 mg/dL (2.5-4.9); Potassium 4.3 mmol/L (3.5-5.1); Protein, Total 6.5 g/dL (6.4-8.2); Sodium Level 141 mmol/L (136-145); Triglycerides 101 mg/dL; Very Low Density Lipoprotein 20 mg/dL (5-40)
--- NOTE | 2021-08-23 08:45 | NURSING ---
This RN assuming care of patient from Z Beam, RN.
[2021-08-23] MEDS: hydroCHLOROthiazide 25 MG Tablet PO (09:47)
[2021-08-23] MEDS: Metoprolol Tartrate 100 MG Tablet PO (09:47)
--- NOTE | 2021-08-23 10:40 | PCM.DC ---
Discharge Instructions Diet Discharge Diet: Low fat / Low cholesterol Activity Discharge Activity: Return to Normal Activity Dressing / Incision Call your doctor if you observe: Shortness of breath, Dizziness and Chest pain Follow Up Care Test Results: Test results from this visit will be discussed in further detail at your follow-up appointment, if applicable. Discharge Plan Admission Admit Date/Time: 08/22/21 19:07 Primary Reason for Your Visit: Chest pain, anxiety Attending Provider: Chad Grimaldo Primary Care Provider: Radha Schulz Discharge Orders/Prescriptions Prescriptions: New amlodipine 5 mg tablet 5 mg PO DAILY Qty: 30 RF: 0 Continued metoprolol tartrate 100 MG tablet 100 mg PO DAILY RF: 0 potassium chloride 10 MEQ tablet extended release 10 meq PO DAILY RF: 0 Changed lisinopril-hydrochlorothiazide 1 EACH tablet 1 tab PO DAILY Qty: 0 RF: 0 Referrals / Follow Up: [place] [Other] (Call for appointment [phone]. May also follow up with Hospice bereavement counseling services.) Radha Schulz MD [Primary Care Provider] - In 1 Week Disposition Disposition (needs filled in before D/C Order can be placed): Home, Self Care
--- NOTE | 2021-08-23 11:13 | CASEMGMT ---
Met with patient at bedside. Introduced self and role. Patient denies any issues, concerns or questions with going home. Family at bedside now. Pending Stress test results- RNCM will continue to follow for results and any potential needs that may arise. Chiquis Elder, HETAL
--- NOTE | 2021-08-23 12:29 | STRESSREP ---
Stress Test Report Date: 08/23/2021 Procedure: Exercise tolerance test/imaging study Indications: Chest pain Consent: Per the patient Procedure: The patient exercised on a Judson protocol for 4 minutes and 1 second achieving a peak heart rate of 162 bpm (110% predicted maximal heart rate) with a peak blood pressure 200/88 mmHg and a peak MET capacity of 7 METs. The baseline ECG demonstrated normal sinus rhythm, nonspecific ST-T changes. The peak exercise ECG demonstrated sinus tachycardia with about 1 to [address] depressions in leads III, aVF and V6 and 1 to [address] depressions in lead II, V3, V4, V5. EKG during recovery revealed return of ST segments to baseline [There were no cardiac dysrhythmias pretest, during exercise, or recovery]. The functional capacity was considered normal for age. There was [no complaint of chest discomfort during exercise or recovery]. The examination was discontinued secondary to dyspnea, fatigue. Impression: 1. Technically adequate (percent predicted maximal heart rate greater than 85%) exercise tolerance test 2. Stress test is borderline positive for exercise-induced EKG changes of ischemia. 3. The test test is negative for exercise-induced chest pain 4. Functional capacity is normal for age 5. Nuclear images pending Myocardial perfusion imaging study: Technique: The patient was injected with 11.3 mCi of technetium 99m Cardiolite and subsequently rest SPECT Cardiolite nuclear imaging was obtained in the horizontal long, vertical long, and short axis views. The patient exercised on a Judson protocol. Please see above for details. The patient was injected with 33 mCi of technetium 99m Cardiolite and subsequently stress SPECT Cardiolite nuclear imaging was obtained in the horizontal long, vertical long, and short axis views. A gated Cardiolite study at peak stress was obtained. Interpretation: Rest and stress SPECT Cardiolite nuclear imaging status post realignment, normalization, and attenuation correction, demonstrates normal myocardial radioisotope uptake. The gated Cardiolite study demonstrates no significant regional wall motion abnormalities. The reported LVEF is greater than 70%. Impression: 1. There is no evidence of significant ischemia or infarction. 2. The gated Cardiolite study reports an LVEF of greater than 70%. This note was generated with zervedation software. It may contain incorrect words, spelling, and punctuation that were not noted in checking the note before signing.
--- NOTE | 2021-08-23 12:45 | DS.PCM_ITS ---
Documented by User: Lamar Lee NP, [employer]-C 08/23/21 12:52 Providers Date of Admission: 08/22/21 Date of Discharge: 08/23/21 Primary Care Physician: Dr. Radha Schulz MD Reason For Visit: CHEST PAIN Diagnosis Discharge Diagnosis (1) Nonspecific chest pain: Status: Acute Code(s): R07.9 - Chest pain, unspecified (2) Abnormal EKG: Status: Acute Code(s): R94.31 - Abnormal electrocardiogram [ECG] [EKG] Medications at Discharge Home Medications metoprolol tartrate 100 mg PO DAILY 07/07/19 potassium chloride 10 meq PO DAILY 07/07/19 amlodipine 5 mg PO DAILY #30 tab 08/23/21 lisinopril-hydrochlorothiazide 1 tab PO DAILY #0 tab 08/23/21 Hospital Course Operations None Procedures Nuclear stress test Summary of Care Provided Minutes Spent on Discharge: 35 Hospital Course: Patient is a 71-year-old male admitted 08/22/2021 due to chest discomfort. 1. Chest pain, ACS ruled out-troponin negative. EKG without acute ST-T changes however concerning for J-point depression in leads V3 through V6. Patient und erwent nuclear stress test which was negative for ischemia, LVEF 70%. Patient reports he has had the symptoms intermittently associated with significant anxiety/panic attacks. No further symptoms during admission. Follow-up with PCP in 1 week. 2. Uncontrolled anxiety-patient reports he has had a longstanding history of anxiety and panic attacks. He reports his symptoms have worsened since his a year and a half ago. He reports he takes as needed Ativan for severe attacks. Strongly encouraged to follow-up for counseling and discussion with primary care provider regarding initiation of SSRI or other appropriate chronic anxiety/depression regimen. 3. Hypertension-above goal during admission. Amlodipine 5 mg daily added to home lisinopril/HCTZ, metoprolol. 4. Chronic kidney disease stage IIIb-at baseline. Patient seen and examined prior to discharge. Physical assessment as noted below. Patient is stable for discharge with follow up recommendations as noted above. This patient was seen by PK Shi under the supervision of Dr. Grimaldo. Physical Exam Const alert, oriented x3 and no apparent distress Orientation / Consciousness: awake, oriented to person, oriented to place and oriented to time HEENT normocephalic and moist oral mucous membranes Eyes PERRL, EOMs intact bilaterally and conjunctivae normal Neck no lymphadenopathy Resp normal respiratory effort and clear to auscultation bilaterally Cardio regular rate, regular rhythm and no murmurs Peripheral Pulses: pulses 2+ throughout GI normal to inspection, nondistended, normoactive bowel sounds, non-tender and non-distended Extremity normal to inspection Skin no rashes or lesions noted Lesions: no lesions Rashes: no rashes Trauma: no lacerations or abrasions Neuro CN's II-XII intact bilaterally, no focal motor deficits, no sensory deficits noted and deep tendon reflexes 2+ bilaterally Psych mental status grossly normal and affect normal Weight / BMI Weight Weight: 186 lb 15.232 oz Body Mass Index (BMI) 26.0 ABG / Lab / Microbiology Data Result Diagrams: 08/23/21 05:10 08/23/21 05:10 Laboratory: Laboratory Results - last 24 hr 08/22/21 15:10: PT Cancelled, INR Cancelled, APTT Cancelled, D-Dimer Quant (PE/DVT) Cancelled 08/22/21 15:15: WBC 8.5, RBC 4.52 L, Hgb 14.1, Hct 42.9, MCV 94.9 H, MCH 31.2, MCHC 32.9, RDW Std Deviation 43.3, RDW Coeff of Regulo 12.5, Plt Count 180, MPV 11.4, Immature Gran % (Auto) 0.400, Neut % (Auto) 65.6, Lymph % (Auto) 23.0, Casey % (Auto) 8.7, Eos % (Auto) 1.8, Baso % (Auto) 0.5, Absolute Neuts (auto) 5.6, Absolute Lymphs (auto) 1.95, Nucleated RBC % 0 08/22/21 15:15: Sodium 141, Potassium 3.4 L, Chloride 105, Carbon Dioxide 28.0, Anion Gap 8, BUN 20 H, Creatinine 1.48 H, Estim Creat Clear Calc 47.35, Est GFR (MDRD) Af Amer 60, Est GFR (MDRD) Non-Af 49 L, BUN/Creatinine Ratio 13.5, Glucose 141 H, Calcium 8.9, Magnesium 1.9, Troponin I High Sens 6, TSH 1.19 08/22/21 15:15: B-Natriuretic Peptide 64.4 08/22/21 16:00: PT 13.2, INR 1.1, APTT 27.7, D-Dimer Quant (PE/DVT) 0.34 08/22/21 17:20: Troponin I High Sens 40 08/22/21 21:05: Hemoglobin A1c 5.5 08/22/21 21:05: Troponin I High Sens 63 08/23/21 05:10: WBC 6.9, RBC 4.26 L, Hgb 13.2, Hct 40.1, MCV 94.1 H, MCH 31.0, MCHC 32.9, RDW Std Deviation 43.6, RDW Coeff of Regulo 12.7, Plt Count 153, MPV 11.1, Immature Gran % (Auto) 0.100, Neut % (Auto) 63.6, Lymph % (Auto) 24.0, Casey % (Auto) 10.0, Eos % (Auto) 1.7, Baso % (Auto) 0.6, Absolute Neuts (auto) 4.4, Absolute Lymphs (auto) 1.65, Nucleated RBC % 0 08/23/21 05:10: Sodium 141, Potassium 4.3, Chloride 108 H, Carbon Dioxide 28.0, Anion Gap 5, BUN 16, Creatinine 1.26, Estim Creat Clear Calc 55.61, Est GFR (MDRD) Af Amer 72, Est GFR (MDRD) Non-Af 60, BUN/Creatinine Ratio 12.7, Glucose 108 H, Calcium 8.7, Phosphorus 2.5, Magnesium 1.8, Total Bilirubin 0.60, AST 16, ALT 22, Alkaline Phosphatase 57, Total Protein 6.5, Albumin 3.3, Globulin 3.2, Albumin/Globulin Ratio 1.0, Triglycerides 101, Cholesterol 178, LDL Cholesterol 102, VLDL Cholesterol 20, HDL Cholesterol 56 Radiography Diagnostic Testing: Radiology Impression Chest X-Ray 08/22/21 15:00 IMPRESSION: Nonacute portable x-ray examination of the chest. Electronically Signed: Christiano Gavin MD (Brooks) at 15:40 EDT , Service support , D/C Instructions Discharge Diet: Low fat / Low cholesterol Call your doctor if you observe: Shortness of breath, Dizziness and Chest pain Meaningful Use Info Meaningful Use Diagnoses (Choose all that apply): None applicable Discharge Plan Admission Admit Date/Time: 08/22/21 19:07 Primary Reason for Your Visit: Chest pain, anxiety Attending Provider: Chad Grimaldo Primary Care Provider: Radha Shculz Discharge Orders/Prescriptions Prescriptions: New amlodipine 5 mg tablet 5 mg PO DAILY Qty: 30 RF: 0 Continued metoprolol tartrate 100 MG tablet 100 mg PO DAILY RF: 0 potassium chloride 10 MEQ tablet extended release 10 meq PO DAILY RF: 0 Changed lisinopril-hydrochlorothiazide 1 EACH tablet 1 tab PO DAILY Qty: 0 RF: 0 Referrals / Follow Up: [place] [Other] (Call for appointment [phone]. May also follow up with Hospice bereavement counseling services.) Radha Schulz MD [Primary Care Provider] - In 1 Week Theresa Ellis NP, NP-C [Nurse Practitioner] - Within 2 Weeks Disposition Disposition (needs filled in before D/C Order can be placed): Home, Self Care Documented by User: Dr. Chad Grimaldo MD 08/23/21 13:15 Providers Date of Admission: 08/22/21 Reason For Visit: CHEST PAIN Medications at Discharge Home Medications metoprolol tartrate 100 mg PO DAILY 07/07/19 potassium chloride 10 meq PO DAILY 07/07/19 amlodipine 5 mg PO DAILY #30 tab 08/23/21 lisinopril-hydrochlorothiazide 1 tab PO DAILY #0 tab 08/23/21 Hospital Course Operations None Summary of Care Provided Hospital Course: This patient was seen in conjunction with NADIR Shi . I have independently interviewed and examined the patient and reviewed pertinent historical, laboratory, and other data. Please refer to PK Shi note for details of this patient's presentation, findings, and recommendations. I have reviewed Lamar Jesus, [employer] note and concur wit h documented findings. In brief, patient is a 71-year-old gentleman admitted with feeling of anxiety. Patient was found to have abnormal EKG subsequently admitted to a monitored bed for further evaluation Hospital course; as documented above ABG / Lab / Microbiology Data Result Diagrams: 08/23/21 05:10 08/23/21 05:10 Discharge Plan Admission Admit Date/Time: 08/22/21 19:07 Primary Reason for Your Visit: Chest pain, anxiety Attending Provider: Chad Grimaldo Primary Care Provider: Radha Schulz Discharge Orders/Prescriptions Prescriptions: New amlodipine 5 mg tablet 5 mg PO DAILY Qty: 30 RF: 0 Continued metoprolol tartrate 100 MG tablet 100 mg PO DAILY RF: 0 potassium chloride 10 MEQ tablet extended release 10 meq PO DAILY RF: 0 Changed lisinopril-hydrochlorothiazide 1 EACH tablet 1 tab PO DAILY Qty: 0 RF: 0 Referrals / Follow Up: [place] [Other] (Call for appointment [phone]. May also follow up with Hospice bereavement counseling services.) Radha Schulz MD [Primary Care Provider] - In 1 Week Theresa Ellis NP, [employer]ER-C [Nurse Practitioner] - Within 2 Weeks Disposition Disposition (needs filled in before D/C Order can be placed): Home, Self Care Charges/Coding Visit Charges OBSV E&M: 40915 Observation care discharge Hospital Course Imaging Results Imaging Results: 08/23/21 05:55 Nuclear Stress Test - Treadmil [NM] AM (NON MEDS) Operations None
== END 2021-08-23 10:43 | disposition home or self-care (01) ==
LOC: ED 19:15 → PCU 19:35
PROVIDERS: Admitting Provider Internal Medicine; Emergency Provider Emergency Medicine; PCP Family Medicine; Visit Provider Internal Medicine
DX: R07.89 Other chest pain (principal); R94.31 Abnormal electrocardiogram [ECG] [EKG]; F41.9 Anxiety disorder, unspecified; I12.9 Hypertensive chronic kidney disease with stage 1 through stage 4 chronic kidney disease, or unspecified chronic kidney disease; N18.32 Chronic kidney disease, stage 3b; Z87.891 Personal history of nicotine dependence; Z79.899 Other long term (current) drug therapy; Z82.49 Family history of ischemic heart disease and other diseases of the circulatory system; E87.6 Hypokalemia; R00.0 Tachycardia, unspecified; F32.A Depression, unspecified; R06.02 Shortness of breath
CPT/HCPCS: 36415; 71045; 78452; 80048; 80053; 80061; 83036; 83735; 83880; 84100; 84443; 84484; 85025; 85379; 85610; 85730; 93005; 93017; 99218; 99251; 99285; A9500; A4216; G0378; G0463

== ENCOUNTER 2022-07-29 05:39 | Emergency (ER) | payer MEDICARE, SELFPAY ==
[2022-07-29 05:39] VITALS: BP 142/82; PULSE 86; RESP 20; TEMP 36.7; O2SAT 98; BMI 25.9
--- NOTE | 2022-07-29 05:51 | EKG12_ITS ---
Test Reason : DYSRHYTHMIA Blood Pressure : / mmHG Vent. Rate : 077 BPM Atrial Rate : 077 BPM P-R Int : 162 ms QRS Dur : 100 ms QT Int : 382 ms P-R-T Axes : 054 029 030 degrees QTc Int : 432 ms Normal sinus rhythm Normal ECG Confirmed by MYNOR NGUYEN, ELOISA ([id number]), acquisitions editor RABIA WEBB ([id number]) on 07/30/2022 1:56:13 PM Referred By: PATSY Confirmed By:ELOISA LOWE MD
[2022-07-29] MEDS: 0.9% Normal Saline 1,000 ML 150 ML IV (05:55)
[2022-07-29 05:58] LABS: Absolute Lymphocyte Count 1.75 X10^3/uL (0.83-4.51); Absolute Neutrophil Count 2.9 X10^3/uL (2.0-7.7); Basophil# 0.04 X10^3/uL; Basophil% 0.7 % (0-1); Eosinophil# 0.19 X10^3/uL; Eosinophils% 3.5 % (0-5); Hematocrit 39.4 % (40-54); Hemoglobin 13.1 g/dL (13.0-16.5); Lymphocyte # 1.75 X10^3/ul (0.83-4.51); Lymphocyte % 32.2 % (19-41); Mean Corp Hgb Conc 33.2 g/dL (32-36); Mean Corpuscular Volume 96.1 fL (80-94); Mean Platelet Vol. 10.4 fl (6.2-12.0); Monocyte# 0.53 X10^3/uL; Monocyte% 9.8 % (0-10); NRBC Flagged by Analyzer 0 % (0-5); Neutrophil # 2.91 X10^3/uL (2.7-7.7); Neutrophil % 53.6 % (47-70); Platelet Count 173 K/mm3 (150-450); RBC Distribution Width CV 12.9 % (11.6-14.6); RBC Distribution Width SD 45.9 fl (35.1-43.9); White Blood Count 5.4 K/mm3 (4.4-11.0)
--- NOTE | 2022-07-29 05:58 | EX.ED.DYSGE1 ---
HPI History of Present Illness Chief Complaint: Palpitations Informant: patient Onset/Context/Timing Onset: Today Current Severity: Mild Maximum Severity: Moderate Narrative Narrative: Patient presents via EMS secondary to palpitations. He states he woke up from sleep, went to get a drink of water, then felt nervous and his heart started racing. He denied chest pain or shortness of breath. He does have a history of anxiety and panic attacks. EMS notes heart rate was around 130 on their arrival but rapidly improved into the 90s. PFSH PFS Medical History HTN (hypertension) Hypokalemia Home Medications metoprolol tartrate 100 mg tablet 100 mg PO DAILY 07/07/19 [History Last Taken Unknown] potassium chloride 10 mEq tablet,extended release 10 meq PO DAILY 07/07/19 [History Last Taken Unknown] amlodipine 5 mg tablet 5 mg PO DAILY #30 tabs 08/23/21 [Rx Last Taken Unknown] lisinopril 20 mg-hydrochlorothiazide 25 mg tablet 1 tab PO DAILY #0 tabs 08/23/21 [Rx Last Taken Unknown] Allergy/AdvReac Type Severity Reaction Status Date / Time No Known Allergies Allergy Verified 07/29/22 05:41 Family History Mother Colon cancer Father CAD (coronary artery disease) Social History Smoking Status: Former smoker how long ago did patient quit smokin years alcohol intake: current alcohol intake frequency: a few times a week Alcohol type: beer substance use type: does not use ROS ROS ED Constitutional Constitutional ED: Denies chills or fever(s) Eyes Eyes: Denies change in vision or discharge from eye(s) ENT ENT ED: Denies discharge from eye(s), rhinorrhea or sore throat Cardiovascular Cardiovascular: Reports palpitations; Denies chest pain Respiratory/Chest Respiratory/Chest: Denies cough or dyspnea Gastrointestinal Gastrointestinal: Denies abdominal pain, diarrhea, nausea or vomiting Genitourinary Genitourinary ED: Denies dysuria Musculoskeletal Musculoskeletal: Denies back pain or extremity pain Integumentary Denies Abrasions or rash Neurologic Neurologic: Denies headache(s) or weakness Psychiatric Psychiatric: Denies depression Allergic/Immunologic Allergic/Immunologic ED: Denies lip swelling or urticaria EXAM Physical Exam Const Vital Signs: 07/29/22 05:39 07/29/22 05:57 07/29/22 06:29 Temperature 98.1 F Temperature Source Temporal Pulse Rate 86 69 Respiratory Rate 20 H 19 H Respiratory Effort Normal Non-Labored Blood Pressure 142/82 H 127/64 H Blood Pressure Mean 102 85 Pulse Ox 98 98 Oxygen Delivery Method Room Air Room Air Positive well nourished and well developed General Appearance ED: well developed HEENT Reports normocephalic and head/scalp atraumatic Eyes PERRL and EOMs intact bilaterally Neck supple Chest Wall inspection of chest normal and palpation of chest normal Resp normal respiratory effort and clear to auscultation bilaterally Cardio regular rate and regular rhythm GI normal to inspection, nondistended, normoactive bowel sounds Palpation: soft Extremity normal to inspection Neuro oriented x3 and no sensory deficits noted Sensorium / Orientation: alert Motor Exam: strength 5/5 throughout Psych mental status grossly normal Skin no rashes or lesions noted MDM MDM MDM Narrative Medical decision making narrative: Patient is placed on cardiac monitor technician. EKG, lab work, portable chest x-ray obtained. Lab Data Attestation: I reviewed the patient's lab results. Labs: Laboratory Results - last 24 hr 07/29/22 07/29/22 05:52 05:52 WBC 5.4 RBC 4.10 L Hgb 13.1 Hct 39.4 L MCV 96.1 H MCH 32.0 MCHC 33.2 RDW Std Deviation 45.9 H RDW Coeff of Regulo 12.9 Plt Count 173 MPV 10.4 Immature Gran % (Auto) 0.200 Neut % (Auto) 53.6 Lymph % (Auto) 32.2 [place] % (Auto) 9.8 Eos % (Auto) 3.5 Baso % (Auto) 0.7 Absolute Neuts (auto) 2.9 Absolute Lymphs (auto) 1.75 Nucleated RBC % 0 Sodium 139 Potassium 4.1 Chloride 105 Carbon Dioxide 26.0 Anion Gap 8 BUN 34 H Creatinine 1.64 H Estim Creat Clear Calc 40.80 Est GFR (MDRD) Af Amer 53 L Est GFR (MDRD) Non-Af 44 L BUN/Creatinine Ratio 20.7 H Glucose 116 H Calcium 9.0 Magnesium 2.0 TSH 1.68 Radiography Chest X-Ray - ED: 1 View, Read by ED Physician, Chronic Changes and No Infiltrates Diagnostic Testing: Clinical Impression(s) from Imaging Studies Chest X-Ray 07/29/22 06:00 IMPRESSION: Normal x-ray examination of the chest. Electronically Signed: Jass Tony DO at 6:16 EDT Reading Location ID and State: [facility] / [place] Tel , Service support , EKG Initial EKG: Attestation: I personally reviewed and interpreted this EKG as follows: Interpretation: Sinus Rhythm (Sinus at 77 with no acute ischemia.) Treatment and Re-Evaluation Narrative: Patient is had no arrhythmias noted on cardiac monitor technician. CBC is unremarkable. Chemistry studies reveal normal potassium. Magnesium is normal. TSH is normal at 1.68. BUN is 34 and creatinine is 1.64, slightly increased over his baseline. Chest x-ray per my interpretation reveals no acute findings. Radiology interpretation is also reviewed. EKG is sinus with no ischemia. Normal intervals noted. Patient has had no further symptoms and feels back to baseline. He will be discharged home at this time. We did discuss increasing p.o. fluids for his kidney function. Return instructions provided. Discharge Plan Triage Chief Complaint: Palpitations ED Provider: Jennifer Narvaez Dx/Rx/DC Orders Clinical Impression: Palpitations Instructions: ED Palpitations Prescriptions: No Action metoprolol tartrate 100 MG tablet 100 mg PO DAILY potassium chloride 10 MEQ tablet extended release 10 meq PO DAILY lisinopril-hydrochlorothiazide 1 EACH tablet 1 tab PO DAILY Qty: 0 0RF amlodipine 5 mg tablet 5 mg PO DAILY Qty: 30 0RF Primary Care Provider: Radha Schulz Referrals: Radha Schulz MD [Primary Care Provider] - 1 Week if not improving Disposition Disposition: Home, Self Care
--- NOTE | 2022-07-29 06:00 | RAD_ITS ---
STUDY: X-RAY CHEST REASON FOR EXAM: Male, 72 years old. palpitations TECHNIQUE: Single AP portable view of the chest. COMPARISON: 08/22/2021 FINDINGS: The lungs are clear and expanded. There is no demonstrated pleural abnormality. Normal size heart. Normal mediastinum and luis. Normal visualized pulmonary arteries. Normal visualized aortic arch and descending thoracic aorta. Normal visualized thoracic spine. Normal visualized ribs, clavicles, and shoulders. There is no demonstrated abnormality of the visualized soft tissue structures of the upper abdomen. RAD/Chest 1 View (Portable) IMPRESSION: Normal x-ray examination of the chest. Electronically Signed: Jass Tony DO at 6:16 EDT ,
[2022-07-29 06:25] LABS: Anion Gap 8 (5-15); BUN 34 mg/dL (7-18); BUN/Creat Ratio 20.7 RATIO (10-20); Chloride 105 mmol/L (98-107); Creatinine, Serum 1.64 mg/dL (0.70-1.30); EST Glomerular Filtration Rate 44 mL/min (>60); Est Glom Filt Rate - Afr Amer 53 mL/min (>60); Glucose 116 mg/dL (74-106); Potassium 4.1 mmol/L (3.5-5.1); Sodium Level 139 mmol/L (136-145); Thyroid Stim Hormone (TSH) 1.68 uIU/mL (0.358-3.74)
[2022-07-29 06:29] VITALS: BP 127/64; PULSE 69; RESP 19; O2SAT 98
== END 2022-07-29 06:41 | disposition home or self-care (01) ==
LOC: ED 06:38
PROVIDERS: Emergency Provider Emergency Medicine; PCP Family Medicine; Visit Provider Emergency Medicine
DX: R00.2 Palpitations (principal); F41.9 Anxiety disorder, unspecified; I10 Essential (primary) hypertension; Z87.891 Personal history of nicotine dependence; Z79.899 Other long term (current) drug therapy
CPT/HCPCS: 71045; 80048; 83735; 84443; 85025; 93005; 96360; 99285; J7030

== ENCOUNTER → 2022-08-22 | Outpatient (CLI) | payer MEDICARE, SELFPAY ==
[2022-08-22 15:54] LABS: PSA,Total - Annual Screen 1.99 ng/mL (0.00-4.00)
== END | disposition home or self-care (01) ==
LOC: MFPLAB 12:00
PROVIDERS: PCP Family Medicine; Referring Provider Family Medicine; Visit Provider Family Medicine
DX: Z12.5 Encounter for screening for malignant neoplasm of prostate (principal)
CPT/HCPCS: 36415; 84153; G0103

== ENCOUNTER → 2023-02-20 | Outpatient (CLI) | payer MEDICARE, SELFPAY ==
[2023-02-20 13:03] LABS: Vitamin D,25 Hydroxy 21.8 ng/mL
[2023-02-20 13:07] LABS: Anion Gap 6 (5-15); BUN 27 mg/dL (7-18); BUN/Creat Ratio 18.5 RATIO (10-20); Calcium,Total 8.9 mg/dL (8.5-10.1); Chloride 106 mmol/L (98-107); Cholesterol 200 mg/dL (200); Creatinine, Serum 1.46 mg/dL (0.70-1.30); EST Glomerular Filtration Rate 50 mL/min (>60); Est Glom Filt Rate - Afr Amer 61 mL/min (>60); Glucose 96 mg/dL (74-106); High Density Lipoprotein 67 mg/dL; Potassium 4.6 mmol/L (3.5-5.1); Sodium Level 138 mmol/L (136-145); Triglycerides 64 mg/dL; Very Low Density Lipoprotein 13 mg/dL (5-40)
[2023-02-20 13:11] LABS: Microalbumin,Random Urine < 5.0 mg/L (NO RANGE EST.)
== END | disposition home or self-care (01) ==
PROVIDERS: PCP Family Medicine; Referring Provider Family Medicine; Visit Provider Family Medicine
DX: I10 Essential (primary) hypertension (principal); E55.9 Vitamin D deficiency, unspecified
CPT/HCPCS: 36415; 80048; 80061; 82043; 82306; 82570

== ENCOUNTER → 2024-02-22 | Outpatient (CLI) | payer MEDICARE, SELFPAY ==
[2024-02-22 12:26] LABS: Protein, Urine (Random) 10.2 mg/dL (<11.9); Protein:Creat Ratio 62 mg/g CRE (0-200)
[2024-02-22 12:49] LABS: Anion Gap 6 (5-15); BUN 38 mg/dL (7-18); BUN/Creat Ratio 20.7 RATIO (10-20); Chloride 106 mmol/L (98-107); Cholesterol 188 mg/dL (200); Creatinine, Serum 1.84 mg/dL (0.70-1.30); EST Glomerular Filtration Rate 38 mL/min (>60); Est Glom Filt Rate - Afr Amer 46 mL/min (>60); Glucose 106 mg/dL (74-106); High Density Lipoprotein 62 mg/dL; Potassium 4.8 mmol/L (3.5-5.1); Sodium Level 140 mmol/L (136-145); Triglycerides 95 mg/dL; Very Low Density Lipoprotein 19 mg/dL (5-40)
== END | disposition home or self-care (01) ==
LOC: MFPLAB 10:51
PROVIDERS: PCP Family Medicine; Visit Provider Family Medicine
DX: I10 Essential (primary) hypertension (principal)
CPT/HCPCS: 36415; 80048; 80061; 82570; 84156

== ENCOUNTER → 2025-01-02 | Outpatient (CLI) | payer MEDICARE, SELFPAY ==
--- NOTE | 2025-01-02 11:10 | RAD_ITS ---
PROCEDURE: Left wrist radiographs, three views TECHNIQUE: Three views of the left wrist were obtained. COMPARISON: None. FINDINGS: Three views of the left wrist were obtained. Bones are osteopenic. Included distal left radius and ulna are intact. No displaced carpal or metacarpal fracture. Mild radiocarpal joint narrowing. Moderate degenerative change of the triscaphe joint. RAD/Wrist min 3 Views IMPRESSION: Osteopenia. No acute bony abnormality of the left wrist. Degenerative changes as above, greatest involving the triscaphe joint. If there is persistent pain or clinical concern, short-term follow-up MRI evalu ation may be helpful. Reading Location: [facility]
== END | disposition home or self-care (01) ==
LOC: MTRAD 11:08
PROVIDERS: PCP Family Medicine; Referring Provider Family Medicine; Visit Provider Family Medicine
DX: M25.532 Pain in left wrist (principal)
CPT/HCPCS: 73110

== ENCOUNTER 2025-02-03 14:45 | Emergency (ER) | payer MEDICARE, SELFPAY ==
[2025-02-03 14:47] VITALS: BP 155/68; PULSE 93; RESP 16; TEMP 36.6; O2SAT 99; BMI 25.1
--- NOTE | 2025-02-03 15:20 | EX.ED.DYSGE1 ---
HPI History of Present Illness Chief Complaint: Fatigue Detail of Chief Complaint: Patient does not complain of fatigue. Complains of being anxious. Informant: patient Onset/Context/Timing Onset: - (Intermittently since the of his 5 years ago.) Context: Sudden Onset Timing: Intermittent Quality: Feels anxious nervous and experiencing palpitations. Location: Generalized Current Severity: Gone Maximum Severity: Moderate Worsened by: Nothing other than he still is grieving the loss of his . Relieved by: Not applicable Associated Symptoms Associated Symptoms: palpitations Narrative Narrative: Patient is a 75-year-old male. He was seen last for similar presentation July 2022. He was also seen August 22 for palpitations etc. Patient states his primary care physician is Dr. Schulz. He has been referred to a therapist. He is never followed up with relaxation techniques. He states he also has a bump on his arm that he has had since he received the COVID-vaccine in 2019. Patient denies fever, chills night sweats. He denies headache, visual, ocular auditory symptoms. Patient has upper respiratory symptoms. Patient presently denies chest pain shortness of breath difficulty breathing. He had no chest pain or shortness of breath when this occurred. He states he was driving to the high school to coal picker his granddaughter. He denies abdominal pain, nausea, vomiting or diarrhea. Nuys black or maroon-colored stool. He denies urologic symptoms. He denies paresthesia, anesthesia or motor weakness. Prior similar symptoms: Yes Recent Illness/Hospitalization: No [facility] Medical History Cat bite Hypokalemia HTN (hypertension) Home Medications ?Medication ?Instructions ?Recorded ?Last Taken ?Type metoprolol tartrate 100 mg tablet 100 mg PO DAILY 07/07/19 Unknown History potassium chloride 10 mEq 10 meq PO DAILY 07/07/19 Unknown History tablet,extended release amlodipine 5 mg tablet 5 mg PO DAILY #30 tabs 08/23/21 Unknown Rx lisinopril 20 1 tab PO DAILY #0 tabs 08/23/21 Unknown Rx mg-hydrochlorothiazide 25 mg tablet amoxicillin 875 mg-potassium 1 tab PO BID #14 tabs 11/29/24 Unknown Rx clavulanate 125 mg tablet Allergy/AdvReac Type Severity Reaction Status Date / Time No Known Allergies Allergy Verified 02/03/25 14:51 Family History Mother Colon cancer Father CAD (coronary artery disease) Social History Smoking Status: Former smoker how long ago did patient quit smokin years alcohol intake: current alcohol intake frequency: a few times a week Alcohol type: beer substance use type: does not use ROS ROS ED Constitutional Constitutional ED: Denies chills, fever(s), subjective, sweats or weight loss Eyes Eyes: Denies blurry vision or change in vision ENT ENT ED: Denies ear pain, rhinorrhea or sore throat Cardiovascular Cardiovascular: Reports palpitations; Denies chest pain or racing heartbeat Respiratory/Chest Respiratory/Chest: Denies cough, dyspnea or dyspnea on exertion Gastrointestinal Gastrointestinal: Reports abdominal pain; Denies nausea or vomiting Genitourinary Genitourinary ED: Denies dysuria, hematuria or urinary frequency Musculoskeletal Musculoskeletal: Denies arthralgias, back pain, myalgias or neck pain Integumentary Reports other Details: Bumped the lateral proximal right arm ; Denies abscess or rash Neurologic Neurologic: Denies headache(s) or paresthesias Psychiatric Psychiatric: Denies anxiety or depression EXAM Physical Exam Const Vital Signs: 02/03/25 14:47 02/03/25 14:51 Temperature 97.9 F Temperature Source Oral Pulse Rate 93 Respiratory Rate 16 Respiratory Effort Normal Respiratory Pattern Normal Blood Pressure 155/68 H Blood Pressure Mean 97 Pulse Ox 99 Oxygen Delivery Method Room Air Positive well nourished and well developed General Appearance ED: well developed and NAD; Negative for pallor HEENT Reports moist mucous membranes HEENT Narrative: Head is atraumatic normocephalic. Ears normal. Nares patent. Eyes PERRL and EOMs intact bilaterally General Eye ED: Negative for pale conjunctiva or scleral icterus Neck no lymphadenopathy, supple and no JVD Resp normal respiratory effort and clear to auscultation bilaterally Cardio regular rate, regular rhythm, S1 normal heart sound, S2 normal heart sound and no murmurs GI normal to inspection, nondistended, normoactive bowel sounds, non-tender, non-distended and no masses; Negative for hepatosplenomegaly Extremity normal to inspection Extremity Narrative: Patient has a mobile firm mass lateral proximal right arm consistent with a lipoma. There is no erythema, warmth, induration or fluctuance. He has no axillary lymphadenopathy. He has full active range of motion of the shoulder and elbow. Neuro oriented x3, CN's II-XII intact bilaterally and no sensory deficits noted Sensorium / Orientation: alert Motor Exam: strength 5/5 throughout Psych Psych Narrative: Patient is slow to respond to questions. He speaks softly. He states it is very difficult for him to get over the loss of his . He does not have suicidal homicidal ideation. Mood & Affect: depressed Skin no rashes or lesions noted, no wounds and skin turgor normal General Skin Exam: elasticity normal; Negative for jaundice or pallor MDM MDM MDM Narrative Medical decision making narrative: Patient did not buy opinion had a anxiety panic attack. Has had these for approximately 5 years. He has not been seen in the emergency room or similar episodes since July 2022. His primary care physician is aware of this. He has been referred to therapist. He is not compliant with follow-up. Since he has no symptoms at this time he was asked what he would like for me to accomplish. He states I can go home. Discharge Plan Triage Chief Complaint: Fatigue ED Provider: Bartolome Kyle Dx/Rx/DC Orders Clinical Impression: Adjustment reaction with anxiety and depression, Palpitations Instructions: ED Adjustment Disorder Prescriptions: No Action amoxicillin-pot clavulanate 875-125 mg tablet 1 tab PO BID Qty: 14 0RF metoprolol tartrate 100 MG tablet 100 mg PO DAILY potassium chloride 10 MEQ tablet extended release 10 meq PO DAILY lisinopril-hydrochlorothiazide 1 EACH tablet 1 tab PO DAILY Qty: 0 0RF amlodipine 5 mg tablet 5 mg PO DAILY Qty: 30 0RF Primary Care Provider: Radha Schulz Referrals: Radha Schulz MD [Primary Care Provider] - 1 Week Print Language: Vincentian Disposition Disposition: Home, Self Care
== END 2025-02-03 15:38 | disposition home or self-care (01) ==
PROVIDERS: Emergency Provider Emergency Medicine; PCP Family Medicine; Visit Provider Emergency Medicine
DX: F43.22 Adjustment disorder with anxiety (principal); R00.2 Palpitations; I10 Essential (primary) hypertension; R53.83 Other fatigue; Z63.4 Disappearance and death of family member; Z87.891 Personal history of nicotine dependence; F32.A Depression, unspecified
CPT/HCPCS: 99284; A4216

== ENCOUNTER → 2025-05-24 | Outpatient (CLI) | payer MEDICARE, SELFPAY ==
[2025-05-24 15:26] LABS: Hematocrit 39.9 % (40-54); Hemoglobin 12.9 g/dL (13.0-16.5); Immature Granulocytes Count 0.020 X10^3/uL (0.0-0.0); Mean Corp Hgb Conc 32.3 g/dL (32-36); Mean Corpuscular Volume 95.5 fL (80-94); Mean Platelet Vol. 11.6 fl (6.2-12.0); NRBC Flagged by Analyzer 0 % (0-5); Platelet Count 165 K/mm3 (150-450); RBC Distribution Width CV 13.1 % (11.6-14.6); RBC Distribution Width SD 45.3 fl (35.1-43.9); Red Blood Count 4.18 M/mm3 (4.6-6.2); White Blood Count 5.9 K/mm3 (4.4-11.0)
[2025-05-24 16:13] LABS: AST(SGOT) 19 U/L (<=37); Alanine Aminotransfer ALT/SGPT 12 U/L (<=46); Albumin, Serum 4.2 g/dL (3.4-4.8); Alkaline Phosphatase 61 U/L (40-129); Anion Gap 10 (5-15); BUN 32 mg/dL (4-19); BUN/Creat Ratio 18.8 RATIO (10-20); Calcium,Total 9.2 mg/dL (7.6-11.0); Carbon Dioxide 25.1 mmol/L (21.0-32.0); Chloride 103 mmol/L (98-108); Cholesterol 189 mg/dL (<=200); Globulin 2.5 g/dL (2.2-4.2); Glucose 93 mg/dL (70-99); Low Density Lipoprotein Calc. 119 mg/dL; PSA,Total - Annual Screen 1.35 ng/mL (0.02-4.00); Potassium 5.0 mmol/L (3.3-5.1); Triglycerides 64 mg/dL; Very Low Density Lipoprotein 13 mg/dL (5-40); Vitamin D,25 Hydroxy 26.1 ng/mL (30-100); cholesterol:hdl ratio screen 3.29
== END | disposition home or self-care (01) ==
PROVIDERS: PCP Family Medicine; Referring Provider Family Medicine; Visit Provider Family Medicine
DX: Z12.5 Encounter for screening for malignant neoplasm of prostate (principal); I10 Essential (primary) hypertension; E55.9 Vitamin D deficiency, unspecified
CPT/HCPCS: 36415; 80053; 80061; 82306; 84153; 85025; G0103

== ENCOUNTER 2025-10-12 04:17 | Inpatient (IN) | payer MEDICARE, SELFPAY ==
[2025-10-12] VITALS (26 sets, daily range): BP systolic 83–149; BP diastolic 49–127; PULSE 73–164; RESP 13–25; TEMP 36.1–36.9; O2SAT 95–100; BMI 24.5; BMI 23.7
--- NOTE | 2025-10-12 04:25 | EKG12_ITS ---
Test Reason : SOB Blood Pressure : */* mmHG Vent. Rate : 155 BPM Atrial Rate : * BPM P-R Int : * ms QRS Dur : 88 ms QT Int : 286 ms P-R-T Axes : * 3 103 degrees QTcB Int : 459 ms Critical Test Result: High HR Atrial fibrillation with rapid ventricular response Nonspecific ST and T wave abnormality Abnormal ECG Confirmed by TONO TERAN ([id number]), order editor ZEHRA ELIZABETH ([id number]) on 10/16/2025 6:12:45 AM Referred By: Confirmed By: TONO TERAN
--- NOTE | 2025-10-12 04:27 | EX.ED.DYSGE1 ---
HPI History of Present Illness Chief Complaint: Cold Sx Informant: patient, family and EMS Narrative Narrative: Patient is a 75-year-old male presenting to the ED with palpitations for several hrs, diarrhea for several days, and a chest cold for a couple weeks. - Reports onset of racing palpitations approximately 3 hours ago while waiting to use the bathroom at home; denies associated lightheadedness or syncope. States occasionally, he feels irregular heartbeat but not constant racing like this. - Denies history of AFib, CHF, or ME. - Denies use of anticoagulants. - Denies chest pain, dyspnea, or lower extremity edema. No fevers. - Reports diarrhea for the past few days, with approximately 10 episodes this past day; denies emesis or abdominal pain. - Started on amoxicillin 6 days ago for a cough; took 6 doses but stopped due to gastrointestinal upset; resumed one dose yesterday. - Lives with grandson, who states he often gets anxious at night, too. PFSH [facility] Medical History Cat bite Hypokalemia HTN (hypertension) Home Medications ?Medication ?Instructions ?Recorded ?Last Taken ?Type metoprolol tartrate 100 mg tablet 100 mg PO DAILY 07/07/19 Unknown History potassium chloride 10 mEq 10 meq PO DAILY 07/07/19 Unknown History tablet,extended release amlodipine 5 mg tablet 5 mg PO DAILY #30 tabs 08/23/21 Unknown Rx lisinopril 20 1 tab PO DAILY #0 tabs 08/23/21 Unknown Rx mg-hydrochlorothiazide 25 mg tablet amoxicillin 875 mg-potassium 1 tab PO BID #14 tabs 11/29/24 Unknown Rx clavulanate 125 mg tablet Allergy/AdvReac Type Severity Reaction Status Date / Time No Known Allergies Allergy Verified 10/12/25 04:27 Family History Mother Colon cancer Father CAD (coronary artery disease) Social History Smoking Status: Former smoker how long ago did patient quit smokin years alcohol intake: current alcohol intake frequency: a few times a week Alcohol type: beer substance use type: does not use ROS ROS ED Constitutional Constitutional ED: Reports malaise and poor appetite; Denies chills or fever(s) Eyes Eyes: Denies change in vision or diplopia ENT ENT ED: Denies rhinorrhea or sore throat Cardiovascular Cardiovascular: Reports as per HPI, irregular heart rhythm and racing heartbeat; Denies chest pain, orthopnea, palpitations, pedal edema or radiating jaw, neck or arm pain Respiratory/Chest Respiratory/Chest: Reports chest congestion, cough and sputum; Denies chest tightness, dyspnea or orthopnea Gastrointestinal Gastrointestinal: Reports diarrhea; Denies abdominal pain, hematochezia, melena, nausea or vomiting Genitourinary Genitourinary ED: Denies dysuria or hematuria Musculoskeletal Musculoskeletal: Denies back pain or neck pain Integumentary Denies abscess or rash Neurologic Neurologic: Denies headache(s), paresthesias or weakness Psychiatric Psychiatric: Denies suicidal thoughts EXAM Physical Exam Const Vital Signs: 10/12/25 04:18 10/12/25 04:20 10/12/25 04:21 Temperature 98.5 F 98.5 F Temperature Source Oral Oral Pulse Rate 164 H 148 H 146 H Respiratory Rate 15 18 Blood Pressure 149/127 H 137/118 H 137/118 H Blood Pressure Mean 134 124 124 Pulse Ox 97 100 Oxygen Delivery Method Room Air Room Air 10/12/25 04:38 10/12/25 05:20 Temperature 97.9 F Temperature Source Oral Pulse Rate 163 H 142 H Respiratory Rate 19 H Blood Pressure 100/82 H 83/53 L Blood Pressure Mean 88 63 Pulse Ox 98 Oxygen Delivery Method Room Air Positive well nourished and well developed General Appearance ED: well developed and NAD HEENT Reports moist mucous membranes normocephalic and atraumatic Eyes PERRL and EOMs intact bilaterally Neck full ROM and supple Resp normal respiratory effort and clear to auscultation bilaterally Cardio no murmurs Rate: tachycardic Rhythm: abnormal rhythm irregularly irregular GI non-tender and non-distended Auscultation: normoactive bowel sounds Palpation: soft Back/Spine no CVA tenderness General Back: other FROM Extremity normal to inspection General Extremety ED: Negative for edema, pulses abnormal or tenderness General Extremity: Negative for edema or pulses abnormal Neuro oriented x3, CN's II-XII intact bilaterally and no sensory deficits noted Sensorium / Orientation: awake and alert Motor Exam: strength 5/5 throughout Psych mental status grossly normal Skin no rashes or lesions noted and no wounds MDM MDM MDM Narrative Medical decision making narrative: Assessment: The patient is a 75-year-old male presenting for palpitations and several-day history of profuse diarrhea (up to ten stools today) after taking amoxicillin about a week ago, which he has since discontinued. EKG shows new-onset atrial fibrillation with rapid ventricular response; chest X-ray is normal. Labs reveal creatinine 5.59 mg/dL (baseline 1.72) consistent with acute kidney failure, BUN 61, bicarbonate 20, leukocytosis 17.2, and mildly elevated troponin 55 likely demand related to sustained tachycardia. Blood pressure remains adequate in the 130s initially but softens to 100/82 after fluids; given stable appearance and uncertain chronicity of AFib, risks of cardioversion or rate-slowing agents outweigh benefits at this time. Plan: - 1 L normal saline bolus administered; continue IV hydration - Withheld Cardizem due to soft blood pressures - Admit to hospital for monitoring of AFib with RVR and management of acute renal failure - Although sepsis considered, with the patient's significant diarrhea, giving him risk for C. difficile, until he provide stool specimen and we ruled that out, since he has no obvious source clinically or on ancillaries of a bacterial source of infection, antibiotics are not indicated at this time. Diagnostics: - EKG interpreted: atrial fibrillation with rapid ventricular response, no acute injury pattern, nonspecific ST-T changes likely rate related. Independently interpreted by Laron bailey. - Chest X-ray, 2 views: normal, no infiltrate or CHF. Independently interpreted by Laron bailey. - Labs: bicarbonate 20 mmol/L; creatinine 5.59 mg/dL (baseline 1.72); BUN 61 mg/dL; troponin 55 (mildly elevated); WBC 17.2 K/?L. - Cdiff ordered; no stool specimen provided in ED thus far. Reevaluations: - After 1 L IV fluids: BP 100/82, HR ~140s, patient alert and well appearing; decision to forego pharmacologic rate control at this time due to soft BP. With IVF, pt has produced urine output; sent for UA, which is pending. After discussion with hospitalist will admit to the ICU History & Record Review Additional record(s) reviewed:: Prior labs Lab Data Attestation: I reviewed the patient's lab results. Labs: Laboratory Results - last 24 hr 10/12/25 04:04 WBC 17.2 H RBC 4.94 Hgb 15.6 Hct 45.7 MCV 92.5 MCH 31.6 MCHC 34.1 RDW Std Deviation 43.8 RDW Coeff of Regulo 12.9 Plt Count 223 MPV 10.4 Immature Gran % (Auto) 0.500 Neut % (Auto) 79.2 H Lymph % (Auto) 9.5 L [place] % (Auto) 8.6 Eos % (Auto) 1.9 Baso % (Auto) 0.3 Absolute Neuts (auto) 13.7 H Absolute Lymphs (auto) 1.63 Nucleated RBC % 0 Sodium 135 Potassium 4.4 Chloride 95 L Carbon Dioxide 19.8 L Anion Gap 19 H BUN 61 H Creatinine 5.59 H Estim Creat Clear Calc 11.43 L Est GFR (MDRD) Non-Af 10 L BUN/Creatinine Ratio 10.9 Glucose 119 H Calcium 9.6 Troponin T High Sens 55 H* Radiography Diagnostic Testing: Clinical Impression(s) from Imaging Studies Chest X-Ray 10/12/25 04:50 IMPRESSION: There is no evidence of an acute process. Reading Location: [facility] Rhythm Strip Rhythm Strip: A-fib Rate: 145 Ectopy: None EKG Initial EKG: Attestation: I personally reviewed and interpreted this EKG as follows: Interpretation: No Acute Injury Pattern, Atrial Fibrillation (w/ RVR) and Non-Specific ST Changes Prior EKG tracings: available for review Prior: Changed Management Discussion w/another healthcare provider: Hospitalist Discharge Plan Dx/Rx/DC Orders Clinical Impression: Atrial fibrillation with RVR, Acute renal failure, Leukocytosis, Elevated troponin, Antibiotic-associated diarrhea Disposition Disposition: Acute Care [facility]
[2025-10-12] MEDS: 0.9% Normal Saline (1000mL) 1,000 ML 999 ML IV ×3 (04:34→09:55)
[2025-10-12 04:37] LABS: Hematocrit 45.7 % (40-54); Hemoglobin 15.6 g/dL (13.0-16.5); Immature Granulocytes Count 0.090 X10^3/uL (0.0-0.0); Mean Corp Hgb Conc 34.1 g/dL (32-36); Mean Corpuscular Volume 92.5 fL (80-94); Mean Platelet Vol. 10.4 fl (6.2-12.0); NRBC Flagged by Analyzer 0 % (0-5); Platelet Count 223 K/mm3 (150-450); RBC Distribution Width CV 12.9 % (11.6-14.6); RBC Distribution Width SD 43.8 fl (35.1-43.9); Red Blood Count 4.94 M/mm3 (4.6-6.2); White Blood Count 17.2 K/mm3 (4.4-11.0)
--- NOTE | 2025-10-12 04:50 | RAD_ITS ---
PROCEDURE: CHEST PA AND LATERAL 10/12/2025 REASON FOR EXAM: COUGH/CHEST CONGESTION TECHNIQUE: Procedure Code: RADCXR Modality: DX Procedure: CHEST PA AND LATERAL COMPARISON: Comparison none FINDINGS: Hardware: Hardware there are precordial chest leads. Heart: The heart size is normal. Mediastinum: The mediastinal contour is unremarkable. There is calcification of slightly prominent lymph nodes at the aortopulmonic window. There is slight calcification of the aortic arch. Lungs: The lungs are clear. There is slight elevation of the left hemidiaphragm. Bones: Unremarkable Other: Mikael there is slight to moderate calcification of the abdominal aorta. RAD/Chest PA and Lateral IMPRESSION: There is no evidence of an acute process. Reading Location: [id number]
[2025-10-12 05:06] LABS: Anion Gap 19 (5-15); BUN 61 mg/dL (4-19); BUN/Creat Ratio 10.9 RATIO (10-20); Calcium,Total 9.6 mg/dL (7.6-11.0); Carbon Dioxide 19.8 mmol/L (21.0-32.0); Chloride 95 mmol/L (98-108); Estimated Creatinine Clearance 11.43 ml/min (50-250); Glucose 119 mg/dL (70-99); Potassium 4.4 mmol/L (3.3-5.1)
[2025-10-12 05:09] LABS: Troponin T High Sensitivity 55 ng/L (<=22)
--- OUTSIDE RECORDS SUMMARY | 2025-10-12 05:25 | XMS RPT_ITS | CCD ---
Author Organization [facility] Care Team Providers Care Hooker Laster Name Role Phone Jazz NGUYEN, Dr. Radha Marin Primary Care Provider [phone] Jazz NGUYEN, Dr. Radha Marin Referring Provider [phone] Alex Hays Attending Provider Kenya NGUYEN, Dr. Andrew Attending Provider [phone] Kenya NGUYEN, Dr. Andrew Referring Provider [phone] Bartolome Kyle MD Emergency Provider Dr. Radha Schulz MD Primary Care Provider [phone] Dr. Bartolome Kyle MD Attending Provider Luis Angel Roque MD Primary Care Provider [phone] Luis Angel Roque MD Attending Provider Luis Angel Roque MD Referring Provider Luis Angel Roque Referring Unavailable Luis Angel Roque Attending Unavailable Luis Angel Roque Primary Care Unavailable Kamran Zambrano Attending Unavailable Radha Schulz Primary Care Unavailable Kamran Zambrano Referring Unavailable Bartolome Kyle Attending Unavailable Radha Schulz Primary Care Unavailable Alex Hays Attending Unavailable Radha Schulz Referring Unavailable Radha Schulz Primary Care Unavailable Medications Current Medications Medication Drug Class(es) Dates Sig (Normalized) Sig (Original) amLODIPine 5 mg oral tablet (6 sources) Dihydropyridine Calcium Channel Codie Start: 08-23-2021 take 1 tablet by mouth once daily Amlodipine 5 mg tablet Active 5 mg PO DAILY 30 0 August 23, 2021 12:00am amoxicillin 875 mg / clavulanate 125 mg oral tablet (2 sources) Penicillin-class Antibacterial Start: 11-29-2024 Amoxicillin-Pot Clavulanate 875-125 mg tablet Active 1 {tbl} PO TWICE A DAY 14 November 29, 2024 1:00am hydroCHLOROthiazide 25 mg / lisinopril 20 mg oral tablet (12 sources) Thiazide Diuretic, Angiotensin Converting Enzyme Inhibitor Start: 07-07-2019 End: 08-23-2021 Lisinopril-Hydr ochlorothiazide 1 EACH tablet Active 1 {tbl} PO DAILY 0 August 23, 2021 10:51am Start: 07-07-2019 End: 08-23-2021 take 1 tablet by mouth once daily Lisinopril-Hydrochlorothiazide Active 1 TABLET PO DAILY 0 August 23, 2021 10:51am metoprolol tartrate 100 mg oral tablet (6 sources) beta-Adrenergic Codie Start: 07-07-2019 take 1 tablet by mouth once daily Metoprolol Tartrate 100 MG tablet Active 100 mg PO DAILY July 07, 2019 12:00am potassium chloride 10 meq extended release oral tablet (6 sources) Start: 07-07-2019 take 1 tablet by mouth once daily Potassium Chloride 10 MEQ tablet extended release Active 10 meq PO DAILY July 07, 2019 12:00am Problems Active Problems Problem Classification Problem Date Documented Date Episodic/Chronic Adjustment disorders (2 sources) Adjustment disorder with mixed anxiety and depressed mood; Translations: [Adjustment disorder with mixed anxiety and depressed mood] 2025 Chronic Cardiac dysrhythmias (8 sources) Palpitations; Translations: [Palpitations] 08-06-2022 Episodic Nonspecific chest pain (6 sources) Chest pain; Translations: [Chest pain, unspecified] 08-31-2021 Episodic Other hematologic conditions (6 sources) Raised cardiac enzyme or marker; Translations: [Other specified abnormalities of plasma proteins] 08-31-2021 Episodic Other screening for suspected conditions (not mental disorders or infectious disease) (7 sources) Electrocardiogram abnormal; Translations: [Abnormal electrocardiogram [ECG] [EKG]] Onset: 07-13-2025 08-31-2021 Episodic Past or Other Problems Problem Classification Problem Date Documented Da te Episodic/Chronic E Codes: Natural/environment (4 sources) Cat bite - wound; Translations: [Bitten by cat, initial encounter] Onset: 12-13-2024 11-29-2024 Episodic Immunizations and screening for infectious disease (1 source) Encounter for immunization; Translations: [Encounter for immunization] Onset: 12-13-2024 Episodic Malaise and fatigue (1 source) Other fatigue; Translations: [Other fatigue] Onset: 02-08-2025 Episodic Other non-traumatic joint disorders (1 source) Pain in left wrist; Translations: [Pain in left wrist] Onset: 01-13-2025 Episodic Results Test Name Value Interpretation Reference Range Facility Absolute lymphocyte countOrd ered By: Luis Angel Roque on 05-24-2025 Lymphocytes Auto (Unsp spec) [#/Vol] 1.77 10*3/uL 0.83-4.51 [facility] Absolute neutrophil countOrd ered By: Luis Angel Roque on 05-24-2025 Neutrophils (Bld) [#/Vol] 3.2 10*3/uL 2.0-7.7 [facility] Anion gap in Serum or Plasma Ordered By: Luis Angel Roque on 05-24-2025 Anion gap [Moles/Vol] 10 mmol/L 5-15 [facility] Automated lymphocyte count a s percentage of total leukocytesOrdered By: Luis Angel Roque on 05-24-2025 Lymphocytes/100 WBC Auto (Unsp spec) 29.8 % 19-41 [facility] BUN/creatinine ratioOrdered By: Luis Angel Jude on 05-24-2025 Urea nitrogen/Creatinine [Mass ratio] 18.8 mg/mg 10-20 [facility] Basophil percentageOrdered B y: Luis Angel Roque on 05-24-2025 Basophils/100 WBC (Bld) 1.0 % 0-1 [facility] Bilirubin, totalOrdered By: Luis Angel Roque on 05-24-2025 Bilirubin [Mass/Vol] 0.73 mg/dL 0.00-1.30 [facility] CBC W/Diff, Automatedon Absolute Lymph 1.77 X10 3/uL Normal 0.83-4.51 [facility] Comment on above: Performed By: #### L 100.0100, L500.4050, L500.4100, L501.9910, L506.1001 #### [facility] [place], [address] Absolute Neut 3.2 X10 3/uL Normal 2.0-7.7 [facility] Comment on above: Performed By: #### L 100.0100, L500.4050, L500.4100, L501.9910, L506.1001 #### [facility] [address] [place], [address] Basophils/100 WBC (Bld) 1.0 % Normal 0-1 [facility] Comment on above: Performed By: #### L 100.0100, L500.4050, L500.4100, L501.9910, L506.1001 #### [facility] [address] [place], [address] Eosinophils/100 WBC (Bld) 5.4 % High 0-5 [facility] Comment on above: Performed By: #### L 100.0100, L500.4050, L500.4100, L501.9910, L506.1001 #### [facility] [address] [place], [address] Erythrocyte distribution width (RBC) [Ratio] 13.1 % Normal 11.6-14.6 [facility] Comment on above: Performed By: #### L 100.0100, L500.4050, L500.4100, L501.9910, L506.1001 #### [facility] [address] [place], [address] Hematocrit (Bld) [Volume fraction] 39.9 % Low 40-54 [facility] Comment on above: Performed By: #### L 100.0100, L500.4050, L500.4100, L501.9910, L506.1001 #### [facility] [address] [place], [address] Hemoglobin (Bld) [Mass/Vol] 12.9 g/dL Low 13.0-16.5 [facility] Comment on above: Performed By: #### L 100.0100, L500.4050, L500.4100, L501.9910, L506.1001 #### [facility] [address] [place], [address] IG% 0.300 Normal 0.0-0.9 [facility] Comment on above: Result Comment: IG% - Immature Granulocytes (promyelocytes, myelocytes and metamyelocytes) > 1% indicates that a LEFT SHIFT is Present. Performed By: #### L 100.0100, L500.4050, L500.4100, L501.9910, L506.1001 #### [facility] [address] [place], [address] Lymphocytes/100 WBC (Bld) 29.8 % Normal 19-41 [facility] Comment on above: Performed By: #### L 100.0100, L500.4050, L500.4100, L501.9910, L506.1001 #### [facility] [address] [place], [address] MCH (RBC) [Entitic mass] 30.9 pg Normal 27.0-32.0 [facility] Comment on above: Performed By: #### L 100.0100, L500.4050, L500.4100, L501.9910, L506.1001 #### [facility] [address] [place], [address] MCHC (RBC) [Mass/Vol] 32.3 g/dL Normal 32-36 [facility] Comment on above: Performed By: #### L 100.0100, L500.4050, L500.4100, L501.9910, L506.1001 #### [facility] [address] [place], [address] MCV (RBC) [Entitic vol] 95.5 fL High 80-94 [facility] Comment on above: Performed By: #### L 100.0100, L500.4050, L500.4100, L501.9910, L506.1001 #### [facility] [address] [place], [address] Monocytes/100 WBC (Bld) 10.3 % High 0-10 [facility] Comment on above: Performed By: #### L 100.0100, L500.4050, L500.4100, L501.9910, L506.1001 #### [facility] [address] [place], [address] Neutrophils/100 WBC (Bld) 53.2 % Normal 47-70 [facility] Comment on above: Performed By: #### L 100.0100, L500.4050, L500.4100, L501.9910, L506.1001 #### [facility] [address] [place], [address] Nucleated RBC (Bld) [#/Vol] 0 10*3/uL Normal 0-5 [facility] Comment on above: Performed By: #### L 100.0100, L500.4050, L500.4100, L501.9910, L506.1001 #### [facility] [address] [place], [address] Platelet mean volume (Bld) [Entitic vol] 11.6 fL Normal 6.2-12.0 [facility] Comment on above: Performed By: #### L 100.0100, L500.4050, L500.4100, L501.9910, L506.1001 #### [facility] [address] [place], [address] Platelets (Bld) [#/Vol] 165 10*3/uL Normal 150-450 [facility] Comment on above: Performed By: #### L 100.0100, L500.4050, L500.4100, L501.9910, L506.1001 #### [facility] [address] [place], [address] RBC (Bld) [#/Vol] 4.18 10*6/uL Low 4.6-6.2 [facility] Comment on above: Performed By: #### L 100.0100, L500.4050, L500.4100, L501.9910, L506.1001 #### [facility] [address] [place], [address] RDW SD 45.3 fl High 35.1-43.9 [facility] Comment on above: Performed By: #### L 100.0100, L500.4050, L500.4100, L501.9910, L506.1001 #### [facility] [address] [place], [address] WBC (Bld) [#/Vol] 5.9 10*3/uL Normal 4.4-11.0 [facility] Comment on above: Performed By: #### L 100.0100, L500.4050, L500.4100, L501.9910, L506.1001 #### [facility] [address] [place], [address] Calculated very low density lipoprotein (VLDL) cholesterol measurementOrdered By: Luis Angel Roque on 05-24-2025 Calculated very low density lipoprotein (VLDL) cholesterol measurement 13 mg/dL 5-40 [facility] Carbon dioxide, total [Moles /volume] in Central venous bloodOrdered By: Luis Angel Roque on 05-24-2025 CO2 [Moles/Vol] 25.1 mmol/L 21.0-32.0 [facility] Chloride assayOrdered By: Edelmira Roque on 05-24-2025 Chloride [Moles/Vol] 103 mmol/L 98-108 [facility] Comprehensive Metabolic Prof ilon 05-24-2025 Albumin [Mass/Vol] 4.2 g/dL Normal 3.4-4.8 [facility] Comment on above: Performed By: #### L 100.0100, L500.4050, L500.4100, L501.9910, L506.1001 #### [facility] [address] [place], [address] Albumin/Globulin [Mass ratio] 1.7 {ratio} Normal 0.9-2.4 [facility] Comment on above: Performed By: #### L 100.0100, L500.4050, L500.4100, L501.9910, L506.1001 #### [facility] [address] [place], [address] ALK PHOS 61 U/L Normal 40-129 [facility] Comment on above: Performed By: #### L 100.0100, L500.4050, L500.4100, L501.9910, L506.1001 #### [facility] [address] [place], [address] ALT [Catalytic activity/Vol] 12 U/L Normal <=46 [facility] Comment on above: Performed By: #### L 100.0100, L500.4050, L500.4100, L501.9910, L506.1001 #### [facility] [address] [place], [address] AST [Catalytic activity/Vol] 19 U/L Normal <=37 [facility] Comment on above: Performed By: #### L 100.0100, L500.4050, L500.4100, L501.9910, L506.1001 #### [facility] [address] [place], [address] Bilirubin [Mass/Vol] 0.73 mg/dL Normal 0.00-1.30 [facility] Comment on above: Performed By: #### L 100.0100, L500.4050, L500.4100, L501.9910, L506.1001 #### [facility] [address] [place], [address] BUN/CRE 18.8 RATIO Normal 10-20 [facility] Comment on above: Performed By: #### L 100.0100, L500.4050, L500.4100, L501.9910, L506.1001 #### [facility] [address] [place], [address] Calcium [Mass/Vol] 9.2 mg/dL Normal 7.6-11.0 [facility] Comment on above: Performed By: #### L 100.0100, L500.4050, L500.4100, L501.9910, L506.1001 #### [facility] [address] [place], [address] Chloride [Moles/Vol] 103 mmol/L Normal 98-108 [facility] Comment on above: Performed By: #### L 100.0100, L500.4050, L500.4100, L501.9910, L506.1001 #### [facility] [address] [place], [address] CO2 [Moles/Vol] 25.1 mmol/L Normal 21.0-32.0 [facility] Comment on above: Performed By: #### L 100.0100, L500.4050, L500.4100, L501.9910, L506.1001 #### [facility] [address] [place], [address] Creatinine [Mass/Vol] 1.72 mg/dL High 0.70-1.20 [facility] Comment on above: Performed By: #### L 100.0100, L500.4050, L500.4100, L501.9910, L506.1001 #### [facility] [address] [place], [address] GAP 10 Normal 5-15 [facility] Comment on above: Performed By: #### L 100.0100, L500.4050, L500.4100, L501.9910, L506.1001 #### [facility] [address] [place], [address] GFR/1.73 sq M.predicted among non-blacks MDRD (S/P/Bld) [Vol rate/Area] 40 mL/min/{1.73_m2} Low >60 [facility] Comment on above: Result Comment: mL/m in/1.73m2 CKD-EPI Creatinine Equation (2020) Performed By: #### L 100.0100, L500.4050, L500.4100, L501.9910, L506.1001 #### [facility] [address] [place], [address] Globulin (S) [Mass/Vol] 2.5 g/dL Normal 2.2-4.2 [facility] Comment on above: Performed By: #### L 100.0100, L500.4050, L500.4100, L501.9910, L506.1001 #### [facility] [address] [place], [address] Glucose [Mass/Vol] 93 mg/dL Normal 70-99 [facility] Comment on above: Performed By: #### L 100.0100, L500.4050, L500.4100, L501.9910, L506.1001 #### [facility] [address] [place], [address] Potassium [Moles/Vol] 5.0 mmol/L Normal 3.3-5.1 [facility] Comment on above: Performed By: #### L 100.0100, L500.4050, L500.4100, L501.9910, L506.1001 #### [facility] [address] [place], [address] Sodium [Moles/Vol] 138 mmol/L Normal 133-145 [facility] Comment on above: Performed By: #### L 100.0100, L500.4050, L500.4100, L501.9910, L506.1001 #### [facility] [address] [place], [address] T PROT 6.7 g/dL Normal 5.9-8.4 [facility] Comment on above: Performed By: #### L 100.0100, L500.4050, L500.4100, L501.9910, L506.1001 #### [facility] [address] [place], [address] Urea nitrogen [Mass/Vol] 32 mg/dL High 4-19 [facility] Comment on above: Performed By: #### L 100.0100, L500.4050, L500.4100, L501.9910, L506.1001 #### [facility] [address] [place], [address] Eosinophil percentageOrdered By: Luis Angel Roque on 05-24-2025 Eosinophils/100 WBC (Bld) 5.4 % High 0-5 [facility] Erythrocyte distribution wid th ratioOrdered By: Luis Angel Roque on 05-24-2025 Erythrocyte distribution width (RBC) [Ratio] 13.1 % 11.6-14.6 [facility] Erythrocyte distribution wid th standard deviationOrdered By: Luis Angel Roque on 05-24-2025 Erythrocyte distribution width (RBC) [Ratio] 45.3 fl High 35.1-43.9 [facility] Glomerular filtration rate ( GFR) estimation/1.73 sq m using serum, plasma, or whole bOrdered By: Lui sAngel Roque on 05-24-2025 GFR/1.73 sq M.predicted among non-blacks MDRD (S/P/Bld) [Vol rate/Area] 40 mL/min/{1.73_m2} Low >60 [facility] Comment on above: mL/min/1.73m2 CKD-EP I Creatinine Equation (2020) Hematocrit Auto (Bld) [Volum e fraction]Ordered By: Luis Angel Roque on 05-24-2025 Hematocrit (Bld) [Volume fraction] 39.9 % Low 40-54 [facility] Hemoglobin measurementOrdere d By: Luis Angel Roque on 05-24-2025 Hemoglobin (Bld) [Mass/Vol] 12.9 g/dL Low 13.0-16.5 [facility] Immature granulocytes/100 WB C Auto (Bld)Ordered By: Luis Angel Roque on 05-24-2025 Immature granulocytes/100 WBC (Bld) 0.300 % 0.0-0.9 [facility] Comment on above: IG% - Immature Granu locytes (promyelocytes, myelocytes and metamyelocytes) > 1% indicates that a LEFT SHIFT is Present. LDL calc ser/plasOrdered By: Luis Angel Roque on 05-24-2025 Cholesterol in LDL [Mass/Vol] 119 mg/dL [facility] Comment on above: Nyfoswrvqe=683-575 m g/dL & Higher Wmqk=452 mg/dL or greater Laboratory - Chemistry and C hemistry - challengeOrdered By: Luis Angel Roque on 05-24-2025 AST [Catalytic activity/Vol] 19 U/L <38 [facility] Lipid Profileon 05-24-2025 CHOL:HDL 3.29 Normal [facility] Comment on above: Performed By: #### L 100.0100, L500.4050, L500.4100, L501.9910, L506.1001 #### [facility] [address] [place], [address] Cholesterol [Mass/Vol] 189 mg/dL Normal <=200 [facility] Comment on above: Result Comment: Chol esterol level, Desirable <200 mg/dL Borderline high cholesterol 200-239 mg/dL High cholesterol >=240 mg/dL Recommendations of the NCEP Adult Treatment Panel for the following risk-cutoff thresholds for the [place] population. Performed By: #### L 100.0100, L500.4050, L500.4100, L501.9910, L506.1001 #### [facility] [address] [place], [address] Cholesterol in HDL [Mass/Vol] 58 mg/dL Normal [facility] Comment on above: Result Comment: Mary onal Cholesterol Education Program (NCEP) guidelines: <40 mg/dL: Low HDL-cholesterol (major risk factor for CHD) >= 60 mg/dL: High HDL-cholesterol (negative risk factor for CHD) HDL-cholesterol is affected by a number of factors, e.g. smoking, exercise, hormones, sex and age. Performed By: #### L 100.0100, L500.4050, L500.4100, L501.9910, L506.1001 #### [facility] [address] [place], [address] Cholesterol in LDL [Mass/Vol] 119 mg/dL Normal [facility] Comment on above: Result Comment: Bord lzerjm=882-620 mg/dL Higher Hjcc=504 mg/dL or greater Performed By: #### L 100.0100, L500.4050, L500.4100, L501.9910, L506.1001 #### [facility] [address] [place], [address] Cholesterol in VLDL [Mass/Vol] 13 mg/dL Normal 5-40 [facility] Comment on above: Performed By: #### L 100.0100, L500.4050, L500.4100, L501.9910, L506.1001 #### [facility] [address] [place], [address] Triglyceride [Mass/Vol] 64 mg/dL Normal [facility] Comment on above: Result Comment: The drugs N-Acetylcysteine and Metamizole may falsely depress this assay. Normal range: <150 mg/dL Borderline High: 150-199 mg/dL High: 200-499 mg/dL Very High: >500 mg/dL Performed By: #### L 100.0100, L500.4050, L500.4100, L501.9910, L506.1001 #### [facility] [address] [place], [place], [address] MCV (mean corpuscular volume ) determinationOrdered By: Luis Angel Roque on 05-24-2025 MCV (RBC) [Entitic vol] 95.5 fL High 80-94 [facility] Mean corpuscular hemoglobin (MCH) determinationOrdered By: [facility] 05-[facility]-2025 MCH (RBC) [Entitic mass] 30.9 pg 27.0-32.0 [facility] Mean corpuscular hemoglobin concentration (MCHC) determinationOrdered By: [facility] on 05-24-2025 MCHC (RBC) [Mass/Vol] 32.3 g/dL 32-36 [facility] Mean platelet volume determi nationOrdered By: [facility] on 05-[facility]-2025 Platelet mean volume (Bld) [Entitic vol] 11.6 fL 6.2-12.0 [facility] Monocyte percentageOrdered B y: Luis Angel Roque on 05-24-2025 Monocytes/100 WBC (Bld) 10.3 % High 0-10 [facility] Neutrophil percentageOrdered By: [facility] on 05-24-2025 Neutrophils/100 WBC (Bld) 53.2 % 47-70 [facility] Nucleated red blood cell per centageOrdered By: [facility] on 05-24-2025 Nucleated RBC/100 WBC (Bld) [Ratio] 0 % 0-5 [facility] PSA,Total - Annual Screenon 05-24-2025 PSA,TOT SCREEN 1.35 ng/mL Normal 0.02-4.00 [facility] Comment on above: Result Comment: This test was performed using the [employer] tPSA method. Measured values of a patient??sample can vary depending on the testing procedure used. PSA values determined on patient samples by different testing procedures cannot be used interchangeably. If there is a change in PSA assays while monitoring therapy, sequential testing should be performed to confirm baseline values. Performed By: #### L 100.0100, L500.4050, L500.4100, L501.9910, L506.1001 #### [facility] [address] [place], [address] Platelet countOrdered By: Edelmira Roque on 05-24-2025 Platelets (Bld) [#/Vol] 165 10*3/uL 150-450 [facility] Potassium measurement (mass/ volume)Ordered By: Luis Angel Roque on 05-24-2025 Potassium (Unsp spec) [Mass/Vol] 5.0 mmol/L 3.3-5.1 [facility] RBC Auto (Bld) [#/Vol]Ordere d By: Luis Angel Roque on 05-24-2025 RBC (Bld) [#/Vol] 4.18 10*6/uL Low 4.6-6.2 [facility] Screening total cholesterol/ high density lipoprotein (HDL) cholesterol ratioOrdered By: Luis Angel Roque on 05-24-2025 Cholesterol.total/Choles terol in HDL [Mass ratio] 3.29 {ratio} [facility] Serum creatinine measurement (mass/volume)Ordered By: Luis Angel Roque on 05-24-2025 Creatinine [Mass/Vol] 1.72 mg/dL High 0.70-1.20 [facility] Serum globulin measurementOr dered By: Luis Angel Roque on 05-24-2025 Globulin (S) [Mass/Vol] 2.5 g/dL 2.2-4.2 [facility] Serum glucose measurement (m ass/volume)Ordered By: Luis Angel Roque on 05-24-2025 Glucose [Mass/Vol] 93 mg/dL 70-99 [facility] Serum or plasma alanine sabillon otransferase (ALT) measurementOrdered By: Luis Angel Roque on 05-24-2025 ALT [Catalytic activity/Vol] 12 U/L <47 [facility] Serum or plasma albumin ana urement (mass/volume)Ordered By: Luis Angel Roque on 05-24-2025 Albumin [Mass/Vol] 4.2 g/dL 3.4-4.8 [facility] Serum or plasma albumin/glob ulin mass ratioOrdered By: Luis Angel Roque on 05-24-2025 Albumin/Globulin [Mass ratio] 1.7 {ratio} 0.9-2.4 [facility] Serum or plasma alkaline sonu sphatase measurementOrdered By: Luis Angel Roque on 05-24-2025 ALP [Catalytic activity/Vol] 61 U/L 40-129 [facility] Serum or plasma calcium ana urement (mass/volume)Ordered By: Luis Angel Roque on 05-24-2025 Calcium [Mass/Vol] 9.2 mg/dL 7.6-11.0 [facility] Serum or plasma cholesterol in HDL measurement (mass/volume)Ordered By: Luis Angel Roque on 05-24-2025 Cholesterol in HDL [Mass/Vol] 58 mg/dL >40 [facility] Comment on above: National Cholesterol Education Program (NCEP) guidelines:<40 mg/dL: Low HDL-cholesterol (major risk factor for CHD)>= 60 mg/dL: High HDL-cholesterol (negative risk factor for CHD)HDL-cholesterol is affected by a number of factors, e.g. smoking, exercise, hormones, sex and age. Serum or plasma cholesterol measurement (mass/volume)Ordered By: Luis Angel Roque on 05-24-2025 Cholesterol [Mass/Vol] 189 mg/dL <[address] [facility] Comment on above: Cholesterol level, D esirable <200 mg/dLBorderline high cholesterol 200-239 mg/dLHigh cholesterol >=240 mg/dLRecommendations of the NCEP Adult Treatment Panel for the following risk-cutoff thresholds for the [place] population. Serum or plasma urea nitroge n measurement (mass/volume)Ordered By: Luis Angel Roque on 05-24-2025 Urea nitrogen [Mass/Vol] 32 mg/dL High 4-19 [facility] Sodium levelOrdered By: Masoud Roque on 05-24-2025 Sodium [Moles/Vol] 138 mmol/L 133-145 [facility] Total proteinOrdered By: Iesha Roque on 05-24-2025 Protein [Mass/Vol] 6.7 g/dL 5.9-8.4 [facility] Triglycerides measurementOrd ered By: Luis Angel Roque on 05-24-2025 Triglyceride [Mass/Vol] 64 mg/dL <199 [facility] Comment on above: The drugs N-Acetylcy steine and Metamizole may falsely depress this assay. Normal range: <150 mg/dLBorderline High: 150-199 mg/dLHigh: 200-499 mg/dLVery High: >500 mg/dL Vitamin D,25 Hydroxyon 05-24 Vitamin D 25-OH 26.1 ng/mL Low 30-100 [facility] Comment on above: Result Comment: Minda min D Status Deficiency: <20 ng/mL (50nmol/L) Insufficiency: 20-30 ng/mL (50-75 nmol/L) Sufficiency: 30-100 ng/mL (75-250 nmol/L) Toxicity: >100 ng/mL (>250 nmol/L) Performed By: #### L 100.0100, L500.4050, L500.4100, L501.9910, L506.1001 #### [facility] [address] [place] [place], [address] White blood cell (WBC) count Ordered By: Luis Angel Roque on 05-24-2025 WBC (Bld) [#/Vol] 5.9 10*3/uL 4.4-11.0 [facility] Emergency Department Summary on 2025 Emergency Department Summary [facility] Medical Records Department [address] [place] [address] Emergency Department Summary 02/03/25 MR#: [id number] Acct: [id number] Name: LIA MEDEL Rep #: [id number] : 1950 75 From: Bartolome Kyle MD PCP: Dr. Radha Schulz MD Status:REG ER Location: ED HPI History of Present Illness Chief Complaint: Fatigue Detail of Chief Complaint: Patient does not complain of fatigue. Complains of being anxious. Informant: patient Onset/Context/Timin g Onset: - (Intermittently since the of his 5 years ago.) Context: Sudden Onset Timing: Intermittent Quality: Feels anxious nervous and experiencing palpitations. Location: Generalized Current Severity: Gone Maximum Severity: Moderate Worsened by: Nothing other than he still is grieving the loss of his . Relieved by: Not applicable Associated Symptoms Associated Symptoms: palpitations Narrative Narrative: Patient is a 75-year-old male. He was seen last for similar presentation July 2022. He was also seen August 22 for palpitations etc. Patient states his primary care physician is Dr. Schulz. He has been referred to a therapist. He is never followed up with relaxation techniques. He states he also has a bump on his arm that he has had since he received the COVID-vaccine in 2019. Patient denies fever, chills night sweats. He denies headache, visual, ocular auditory symptoms. Patient has upper respiratory symptoms. Patient presently denies chest pain shortness of breath difficulty breathing. He had no chest pain or shortness of breath when this occurred. He states he was driving to the high school to clam picker his granddaughter. He denies abdominal pain, nausea, vomiting or diarrhea. Nuys black or maroon-colored stool. He denies urologic symptoms. He denies paresthesia, anesthesia or motor weakness. Prior similar symptoms: Yes Recent Illness/Hospitaliza tion: No [facility] Medical History Cat bite Hypokalemia HTN (hypertension) Home Medications ???Medication ???Instructions ???Recorded ???Last Taken ???Type metoprolol tartrate 100 mg tablet 100 mg PO DAILY 07/07/19 Unknown History potassium chloride 10 mEq 10 meq PO DAILY 07/07/19 Unknown H istory tablet,extended release amlodipine 5 mg tablet 5 mg PO DAILY #30 tabs 08/23/21 Un known Rx lisinopril 20 1 tab PO DAILY #0 tabs 08/23/21 Un known Rx mg-hydrochlorothiaz britta 25 mg tablet amoxicillin 875 mg-potassium 1 tab PO BID #14 tabs 11/29/24 Unk nown Rx clavulanate 125 mg tablet Allergy/AdvReac Type Severity Reaction Status Date / Time No Known Allergies Allergy Verified 02/03/25 14:51 Family History Mother Colon cancer Father CAD (coronary artery disease) Social History Smoking Status: Former smoker how long ago did patient quit smokin years alcohol intake: current alcohol intake frequency: a few times a week Alcohol type: beer substance use type: does not use ROS ROS ED Constitutional Constitutional ED: Denies chills, fever(s), subjective, sweats or weight loss Eyes Eyes: Denies blurry vision or change in vision ENT ENT ED: Denies ear pain, rhinorrhea or sore throat Cardiovascular Cardiovascular: Reports palpitations; Denies chest pain or racing heartbeat Respiratory/Chest Respiratory/Chest: Denies cough, dyspnea or dyspnea on exertion Gastrointestinal Gastrointestinal: Reports abdominal pain; Denies nausea or vomiting Genitourinary Genitourinary ED: Denies dysuria, hematuria or urinary frequency Musculoskeletal Musculoskeletal: Denies arthralgias, back pain, myalgias or neck pain Integumentary Reports other Details: Bumped the lateral proximal right arm ; Denies abscess or rash Neurologic Neurologic: Denies headache(s) or paresthesias Psychiatric Psychiatric: Denies anxiety or depression EXAM Physical Exam Const Vital Signs: 02/03/25 14:47 02/03/25 14:51 Temperature 97.9 F Temperature Source Oral Pulse Rate 93 Respiratory Rate 16 Respiratory Effort Normal Respiratory Pattern Normal Blood Pressure 155/68 H Blood Pressure Mean 97 Pulse Ox 99 Oxygen Delivery Method Room Air Positive well nourished and well developed General Appearance ED: well developed and NAD; Negative for pallor HEENT Reports moist mucous membranes HEENT Narrative: Head is atraumatic normocephalic. Ears normal. Nares patent. Eyes PERRL and EOMs intact bilaterally General Eye ED: Negative for pale conjunctiva or scleral icterus Neck no lymphadenopathy, supple and no JVD Resp normal respiratory effort and clear to auscultation bilaterally Cardio regular rate, regular r (more content not included)... Normal [facility] Wrist min 3 Viewson 01-02-20 Wrist min 3 Views [facility] [address] [place], [place] [id number] Wrist min 3 Views MR#: [id number] Acct: [id number] Name: LIA MEDEL Rep #: [id number] : 1950 M 74 From: Ethan Leonard i, DO PCP: Dr. Radha Schulz MD Status: REG CLI Study: Wrist min 3 Views Date of Exam: 01/02/25 Exam# [id number] Ordering Dr: Kamran Zambrano MD PROCEDURE: Left wrist radiographs, three views TECHNIQUE: Three views of the left wrist were obtained. COMPARISON: None. FINDINGS: Three views of the left wrist were obtained. Bones are osteopenic. Included distal left radius and ulna are intact. No displaced carpal or metacarpal fracture. Mild radiocarpal joint narrowing. Moderate degenerative change of the triscaphe joint. RAD/Wrist min 3 Views IMPRESSION: Osteopenia. No acute bony abnormality of the left wrist. Degenerative changes as above, greatest involving the triscaphe joint. If there is persistent pain or clinical concern, short-term follow-up MRI evaluation may be helpful. Reading Location: [facility] CC: Dr. Radha Schulz MD; Dr. Kamran Zambrano MD Online Marketing Coordinator: Signed Normal [facility] Urgent Care Visit Reporton 0 11-29-2024 Urgent Care Visit Report [facility] [address], [address] [place] [address] OFFICE VISIT Date of Service: 11/29/24 MR#: [id number] Acct: [id number] Name: LIA MEDEL Rep #: [id number] : 1950 Provider: MADHAVI Kahn Age/Sex: 74/M Location: [facility] [place] Status: Signed Intake Vital Signs 07/29/22 05:39 11/29/24 10:57 Height 5 ft 10 in 5 ft 10 in Weight: 184 lb BMI 26.4 BP 120/80 Position Sitting Pulse 58 L Temp 98.0 F Temp Source Oral Pulse Oximetry (%) 98 Oxygen Delivery Method room air Intake Visit Reasons: cat bite right thumb Accompanied by: Self Allergies No Known Allergies Allergy (Verified 11/29/24 10:58) Medications ???Medication ???Instructions ???Recorded ???Confirmed ???Type metoprolol tartrate 100 mg tablet 100 mg PO DAILY 07/07/19 11/29/24 History potassium chloride 10 mEq 10 meq PO DAILY 07/07/19 11/29/24 History tablet,extended release amlodipine 5 mg tablet 5 mg PO DAILY #30 tabs 08/23/21 11/29/24 Rx lisinopril 20 1 tab PO DAILY #0 tabs 08/23/21 11/29/24 Rx mg-hydrochlorothiaz britta 25 mg tablet amoxicillin 875 mg-potassium 1 tab PO BID #14 tabs 11/29/24 Rx clavulanate 125 mg tablet Have you fallen in the past year?: No Nurse's Note: Patient has a kitten bite that happen last night on his left index finger. I believe he said it was a stray kitten. [facility] Medical History (Updated 11/29/24 @ 12:22 by Alex HENDRICSKON, PA) Cat bite Hypokalemia HTN (hypertension) Family History Mother Colon cancer Father CAD (coronary artery disease) Social History Smoking Status: Former smoker how long ago did patient quit smokin years alcohol intake: current alcohol intake frequency: a few times a week Alcohol type: beer substance use type: does not use HPI HPI Details: LIA MEDEL, is a 74 M who presents to the office today for initial evaluation at the [facility] clinic status post RIF kitten bite last evening (stray which patient recovered from outside yesterday). PMH NC. Unknown last Td. Trace to absent localized discomfort at puncture wound site x 1. No complaints of fever, chills, sweats, lightheadedness/diz ziness, nausea/vomiting, or erythema, warmth, swelling at the puncture wound site. No [id number] products taken to assist. No other associated symptoms and no other alleviating/aggrava ting factors. ROS Const Constitutional: No other (As above) Exam Const General: cooperative, healthy appearing and no acute distress Orientation: alert and awake Resp Effort Inspection: normal respiratory effort and able to speak in complete sentences Cardio Rate: regular rate Pulses: radial pulses present Skin General: no rashes or lesions noted Trauma: puncture (RIF w/o erythema, swelling; site cleansed, then bacitracin/bandaid appplied) Neuro General: patient alert and patient awake Cognition: normal cognition Speech: speech normal Extrem General: normal to inspection Psych Appearance: grossly normal Mental Status: mental status grossly normal Mood: congruent mood Affect: normal affect Speech and Movement: speech and movement normal Attitude: cooperative Immunizations Boostrix Tdap 2.5 Lf unit-8 mcg-5 Lf/0.5 mL intramuscular syringe Performing Provider: Alex HENDRICKSON PA Performing Location: [facility] Administered by: Dalila Resendiz MA on 11/29/24 11:14 Dose Route Admin Location Dispensed Lot Number Expiration Date MINDY Grajeda ufacturer 0.5 mL IM Left Deltoid 0.5 mL [id number] 09/24/26 [id number] [email or web address] VIS Given Date VIS Provided VIS Publication Date 11/29/24 Single Vaccine 21 Eligibility Eligibility Date Funding Source Not Applicable Coding Level of Care Code Off vis,new,level 3 Diagnoses Cat bite W55.01XA Assessment and Plan Assessment and Plan (1) Cat bite: Status: Acute Plan: Twice daily wound care as instructed today. Tdap updated today. Augmentin as prescribed today. Dog bite form for [facility] was followed up by nursing staff and patient and faxed to [facility] for further evaluation. Follow-up with the [facility] on an as-needed basis only, reporting to ED should symptoms only worsen or any other concerns develop. Patient states acknowledging understanding all the above. This note was generated with [employer] dictation software. It may contain incorrect words, spelling, and punctuation that were not noted in checking the note before signing. Orders: Orders Tdap Immunization Today Z23 - Encounter for immunization Medications: New amoxicillin-pot clavulanate 875-125 mg 1 TAB PO BID 14 tabs 0RF (more content not included)... Normal [facility] Basophil percentageOrdered B y: Radha Jazz on 02-22-2024 Chloride [Moles/Vol] 106 mmol/L 98-107 [facility] Cholesterol [Mass/Vol] 188 mg/dL <200 [facility] Comment on above: <200 mg/dL Desirable 200-240 mg/dL Borderline >240 mg/dL High Risk Glucose [Mass/Vol] 106 mg/dL 74-106 [facility] Comment on above: Fasting Glucose resu lt from 100 to 125 mg/dL suggests IMPAIRED HOMEOSTASIS per A.D.A. criteria. Potassium [Moles/Vol] 4.8 mmol/L 3.5-5.1 [facility] Sodium [Moles/Vol] 140 mmol/L 136-145 [facility] Triglyceride [Mass/Vol] 95 mg/dL <199 [facility] Comment on above: The drugs N-Acetylcy steine and Metamizole may falsely depress this assay.Serum Triglycerides Reference Interval Normal <150 mg/dL Borderline high 150 - 199 mg/dL High 200 - 499 mg/dL Very High > or = 500 mg/dL Laboratory - Chemistry and C hemistry - challengeOrdered By: Radha Schluz on 02-22-2024 Cholesterol in HDL [Mass/Vol] 62 mg/dL >40 [facility] Comment on above: The drugs N-Acetylcy steine and Metamizole may falsely depress this assay. Reference Range HDL <40 mg/dL Low HDL Cholesterol HDL >or= 60 mg/dL High HDL Cholesterol Cholesterol in LDL [Mass/Vol] 107 mg/dL 0-130 [facility] CO2 [Moles/Vol] 28.0 mmol/L 21.0-32.0 [facility] Urea nitrogen/Creatinine [Mass ratio] 20.7 mg/mg 10-20 [facility] No Panel InformationOrdered By: Radha Schulz on 02-22-2024 Estimated GFR (MDRD) Amer 46 mL/min >60 [facility] Comment on above: GFR Calc Estimated GFR (MDRD) Non-Af Amer 38 mL/min >60 [facility] Comment on above: Non- GFR Calc VLDL Cholesterol 19 mg/dL 5-40 [facility] Serum or plasma calcium ana urement (mass/volume)Ordered By: Radha Schulz on 02-22-2024 Calcium [Mass/Vol] 9.0 mg/dL 8.5-10.1 [facility] Serum or plasma creatinine m easurement (mass/volume)Ordered By: Radha Schulz on 02-22-2024 Creatinine [Mass/Vol] 1.84 mg/dL 0.70-1.30 [facility] Comment on above: The validity of the calculated GFR & GFRAA in patients over 70 years has not been determined. Clinical correlation is essential. Serum or plasma urea nitroge n measurement (mass/volume)Ordered By: Radha Schulz on 02-22-2024 Urea nitrogen [Mass/Vol] 38 mg/dL 7-18 [facility] Thin prep Papanicolaou smear with manual screeningOrdered By: Radha Schulz on 02-22-2024 Protein (U) [Mass/Vol] 10.2 mg/dL 0.0-11.8 [facility] Thin prep Papanicolaou smear with manual screening 6 5-15 [facility] Urine creatinine measurement (mass/volume)Ordered By: Radha Schulz on 02-22-2024 Creatinine (U) [Mass/Vol] 164.00 mg/dL NO RANGE EST. [facility] Urine protein/creatinine mas s ratioOrdered By: Radha Schulz on 02-22-2024 Protein/Creatinine (U) [Mass ratio] 62 mg/g CRE 0-200 [facility] Basophil percentageOrdered B y: Dr. Schulz on 02-20-2023 Chloride [Moles/Vol] 106 mmol/L 98-107 [facility] Cholesterol [Mass/Vol] 200 mg/dL <200 [facility] Comment on above: <200 mg/dL Desirable 200-240 mg/dL Borderline >240 mg/dL High Risk Glucose [Mass/Vol] 96 mg/dL 74-106 [facility] Potassium [Moles/Vol] 4.6 mmol/L 3.5-5.1 [facility] Sodium [Moles/Vol] 138 mmol/L 136-145 [facility] Triglyceride [Mass/Vol] 64 mg/dL <199 [facility] Comment on above: The drugs N-Acetylcy steine and Metamizole may falsely depress this assay.Serum Triglycerides Reference Interval Normal <150 mg/dL Borderline high 150 - 199 mg/dL High 200 - 499 mg/dL Very High > or = 500 mg/dL Laboratory - Chemistry and C hemistry - challengeOrdered By: Dr. Schulz on 02-20-2023 CO2 [Moles/Vol] 26.0 mmol/L 21.0-32.0 [facility] Urea nitrogen/Creatinine [Mass ratio] 18.5 mg/mg 10-20 [facility] No Panel InformationOrdered By: Dr. Schulz on 02-20-2023 Estimated GFR (MDRD) Amer 61 mL/min >60 [facility] Comment on above: GFR Calc Estimated GFR (MDRD) Non-Af Amer 50 mL/min >60 [facility] Comment on above: Non- GFR Calc Urine Microalbumin/Creatinine Ratio TNP [facility] Comment on above: Test not performed Vitamin D 25-Hydroxy 21.8 ng/mL [facility] Comment on above: Vitamin D 25(OH) Sta tus Range Deficiency <20 ng/mL (50nmol/L) Insufficiency 20 - 30 ng/mL (50 - 75 nmol/L) Sufficiency 30 - 100 ng/mL (75 - 250 nmol/L) Toxicity >100 ng/mL (>250 nmol/L) Serum or plasma calcium ana urement (mass/volume)Ordered By: Dr. Schulz on 02-20-2023 Calcium [Mass/Vol] 8.9 mg/dL 8.5-10.1 [facility] Serum or plasma cholesterol in HDL measurement (mass/volume)Ordered By: Dr. Schulz on 02-20-2023 Cholesterol in HDL [Mass/Vol] 67 mg/dL >40 [facility] Comment on above: The drugs N-Acetylcy steine and Metamizole may falsely depress this assay. Reference Range HDL <40 mg/dL Low HDL Cholesterol HDL >or= 60 mg/dL High HDL Cholesterol Serum or plasma cholesterol in VLDL measurement (mass/volume)Ordered By: Dr. Schulz on 02-20-2023 Cholesterol in VLDL [Mass/Vol] 13 mg/dL 5-40 [facility] Serum or plasma creatinine m easurement (mass/volume)Ordered By: Dr. Schulz on 02-20-2023 Creatinine [Mass/Vol] 1.46 mg/dL 0.70-1.30 [facility] Comment on above: The validity of the calculated GFR & GFRAA in patients over 70 years has not been determined. Clinical correlation is essential. Serum or plasma low density lipoprotein (LDL) cholesterol measurement (mass/volume)Ordered By: Dr. Schulz on 02-20-2023 Cholesterol in LDL [Mass/Vol] 120 mg/dL 0-130 [facility] Serum or plasma urea nitroge n measurement (mass/volume)Ordered By: Dr. Schulz on 02-20-2023 Urea nitrogen [Mass/Vol] 27 mg/dL 7-18 [facility] Thin prep Papanicolaou smear with manual screeningOrdered By: Dr. Schulz on 02-20-2023 Thin prep Papanicolaou smear with manual screening 6 5-15 [facility] Thin prep Papanicolaou smear with manual screening < 5.0 mg/L NO RANGE EST. [facility] Urine creatinine measurement (mass/volume)Ordered By: Dr. Schulz on 02-20-2023 Creatinine (U) [Mass/Vol] 74.10 mg/dL NO RANGE EST. [facility] No Panel Informationon 08-22 Prostate Specific Antigen Screen 1.99 ng/mL 0.00-4.00 [facility] Work Phone: Comment on above: This test was perfor med using the TPSA assay method for [employer] chemistry system. Values obtained with differentassay methods cannot be used interchangably.When changing PSA assays in the course of monitoring apatient, additional sequential testing should be carriedout to confirm baseline values. Absolute lymphocyte counton 07-29-2022 Lymphocytes Auto (Unsp spec) [#/Vol] 1.75 10*3/uL 0.83-4.51 [facility] Work Phone: Basophil percentageon 2021 Basophils/100 WBC (Bld) 0.7 % 0-1 [facility] Work Phone: Chloride [Moles/Vol] 105 mmol/L 98-107 [facility] Work Phone: Eosinophils/100 WBC (Bld) 3.5 % 0-5 [facility] Work Phone: Glucose [Mass/Vol] 116 mg/dL 74-106 [facility] Work Phone: Comment on above: Fasting Glucose resu lt from 100 to 125 mg/dL suggests IMPAIRED HOMEOSTASIS per A.D.A. criteria. Neutrophils (Bld) [#/Vol] 2.9 10*3/uL 2.0-7.7 [facility] Work Phone: Neutrophils/100 WBC (Bld) 53.6 % 47-70 [facility] Work Phone: Potassium [Moles/Vol] 4.1 mmol/L 3.5-5.1 [facility] Work Phone: Sodium [Moles/Vol] 139 mmol/L 136-145 [facility] Work Phone: WBC (Bld) [#/Vol] 5.4 10*3/uL 4.4-11.0 [facility] Work Phone: Blood erythrocytes count (nu mber/volume)on 07-29-2022 RBC (Bld) [#/Vol] 4.10 10*6/uL 4.6-6.2 [facility]: Blood hemoglobin measurement (mass/volume)on 07-29-2022 Hemoglobin (Bld) [Mass/Vol] 13.1 g/dL 13.0-16.5 [facility] Work Phone: Blood lymphocytes/100 leukoc yteson 07-29-2022 Lymphocytes/100 WBC (Bld) 32.2 % 19-41 [facility] Work Phone: Blood monocytes/100 leukocyt eson 07-29-2022 Monocytes/100 WBC (Bld) 9.8 % 0-10 [facility] Work Phone: Blood platelet mean volumeon 07-29-2022 Platelet mean volume (Bld) [Entitic vol] 10.4 fL 6.2-12.0 [facility] Work Phone: Determination of erythrocyte mean corpuscular volume (MCV)on 07-29-2022 MCV (RBC) [Entitic vol] 96.1 fL 80-94 [facility] Work Phone: Hematocrit Auto (Bld) [Volum e fraction]on 07-29-2022 Hematocrit (Bld) [Volume fraction] 39.4 % 40-54 [facility] Work Phone: Laboratory - Chemistry and C hemistry - challengeon 07-29-2022 CO2 [Moles/Vol] 26.0 mmol/L 21.0-32.0 [facility] Work Phone: Magnesium [Mass/Vol] 2.0 mg/dL 1.6-2.6 [facility] Work Phone: Urea nitrogen/Creatinine [Mass ratio] 20.7 mg/mg 10-20 [facility] Work Phone: Laboratory - Hematology and Cell countson 07-29-2022 Erythrocyte distribution width (RBC) [Entitic vol] 45.9 fL 35.1-43.9 [facility] Work Phone: Erythrocyte distribution width (RBC) [Ratio] 12.9 % 11.6-14.6 [facility] Work Phone: Immature granulocytes/100 WBC (Bld) 0.200 % 0.0-0.9 [facility] Work Phone: Comment on above: IG% - Immature Granu locytes (promyelocytes, myelocytes and metamyelocytes) > 1% indicates that a LEFT SHIFT is Present. MCH (RBC) [Entitic mass] 32.0 pg 27.0-32.0 [facility] Work Phone: Nucleated RBC/100 WBC (Bld) [Ratio] 0 % 0-5 [facility] Work Phone: MCHC Auto (RBC) [Mass/Vol]on 07-29-2022 MCHC (RBC) [Mass/Vol] 33.2 g/dL 32-36 [facility] Work Phone: No Panel Informationon 07-29 Estimated Creatinine Clearance Calc 40.80 ml/min [facility] Work Phone: Estimated GFR (MDRD) Amer 53 mL/min >60 [facility] Work Phone: Comment on above: GFR Calc Estimated GFR (MDRD) Non-Af Amer 44 mL/min >60 [facility] Work Phone: Comment on above: Non- GFR Calc Thyroid Stimulating Hormone (TSH) 1.68 uIU/mL 0.358-3.74 [facility] Work Phone: Platelets bldon 07-29-2022 Platelets (Bld) [#/Vol] 173 10*3/uL 150-450 [facility] Work Phone: Serum or plasma calcium ana urement (mass/volume)on 07-29-2022 Calcium [Mass/Vol] 9.0 mg/dL 8.5-10.1 [facility] Work Phone: Serum or plasma creatinine m easurement (mass/volume)on 07-29-2022 Creatinine [Mass/Vol] 1.64 mg/dL 0.70-1.30 [facility] Work Phone: Comment on above: The validity of the calculated GFR & GFRAA in patients over 70 years has not been determined. Clinical correlation is essential. Serum or plasma urea nitroge n measurement (mass/volume)on 07-29-2022 Urea nitrogen [Mass/Vol] 34 mg/dL 7-18 [facility] Work Phone: Thin prep Papanicolaou smear with manual screeningon 07-29-2022 Thin prep Papanicolaou smear with manual screening 8 5-15 [facility] Work Phone: CNCOon 01-28-2021 CNCO Letter Text Normal [facility] CNPNon 01-28-2021 CNPN Telephone (SPPRAD) ---- LIA MEDEL ( ) 1950 Date Time Provider Department 01/28/21 YASMINE MANZANARES ([facility])SPPRAD During your visit today, we recorded the following information about you: Yasmine Dutta APRN.[facility] 01/28/2021 2:02 PM Signed Recall colonoscopy (2nd call). not set up for me to leave message. Letter sent out. Allergies As of Date: 01/28/2021 (No Known Allergies) Date Reviewed: 01/05/2018 Reviewed by: Claribel Higgins Ma - Fully Assessed Reason for Visit: recall colonoscopy [Other] Prescriptions as of 01/28/2021 Sig: POTASSIUM CHLORIDE ER 10 MEQ * GARLIC CAPSULE Take by mouth. CINNAMON ORAL Take by mouth. ASCORBIC ACID (VITAMIN C) 500* Take 500 mg by mouth once danie* METOPROLOL TARTRATE 100 MG TA* Take 100 mg by mouth once danie* HYDROCHLOROTHIAZIDE 25 MG TAB* Take 25 mg by mouth once rory* Problem List As Of Date 01/28/2021 Noted Resolved Family history of colon cancer [Z80.0] 10/29/2011 Encounter Status:Closed by YASMINE MANZANARES on 01/28/21 [facility] 01-23-2021 CNPN Telephone (SPPRAD) ---- LIA MEDEL ( ) 1950 M Date Time Provider Department 01/23/21 YASMINE MANZANARES ([facility])SPPRAD During your visit today, we recorded the following information about you: Yasmine Dutta APRN.[facility] 01/23/2021 4:20 PM Signed Recall colonoscopy (1st attempt). not set up - unable to leave message. Allergies As of Date: 01/23/2021 (No Known Allergies) Date Reviewed: 01/05/2018 Reviewed by: Claribel Higgins Ma - Fully Assessed Reason for Visit: Follow Up For [3040] Cmt: recall colonoscopy Prescriptions as of 01/23/2021 Sig: POTASSIUM CHLORIDE ER 10 MEQ * GARLIC CAPSULE Take by mouth. CINNAMON ORAL Take by mouth. ASCORBIC ACID (VITAMIN C) 500* Take 500 mg by mouth once danie* METOPROLOL TARTRATE 100 MG TA* Take 100 mg by mouth once danie* HYDROCHLOROTHIAZIDE 25 MG TAB* Take 25 mg by mouth once rory* Problem List As Of Date 01/23/2021 Noted Resolved Family history of colon cancer [Z80.0] 10/29/2011 Encounter Status:Closed by YASMINE MANZANARES on 01/23/21 [facility] Vital Signs Date Time Vital Sign Value Performing Clinician Arron hall 2025 14:47-0400 Body height 177.[address] Radha Schulz MD Work Phone: [facility] 2025 14:47-0400 Body mass index (BMI) [Ratio] 25.1 kg/m2 Dr. Radha Schulz MD Work Phone: [facility] 2025 14:47-0400 Body temperature 97.9 [degF] Dr. Radha Schulz MD Work Phone: [facility] 2025 14:47-0400 Body weight 79.[address] Radha Schulz MD Work Phone: [facility] 2025 14:47-0400 Diastolic blood pressure 68 mm[Hg] Dr. Radha Schulz MD Work Phone: [facility] 2025 14:47-0400 Heart rate 93 /min Dr. Radha Schulz MD Work Phone: [facility] 2025 14:47-0400 Respiratory rate 16 /min Dr. Radha Schulz MD Work Phone: [facility] 2025 14:47-0400 SaO2% (BldA) [Mass fraction] 99 % Dr. Radha Schulz MD Work Phone: [facility] 2025 14:47-0400 Systolic blood pressure 155 mm[Hg] Dr. Radha Schulz MD Work Phone: [facility] 11-29-2024 10:57-0500 Body mass index (BMI) [Ratio] 26.4 kg/m2 Dr. Radha Schulz MD Work Phone: [facility] 11-29-2024 10:57-0500 Body temperature 98 [degF] Dr. Radha Schulz MD Work Phone: [facility] 11-29-2024 10:57-0500 Body weight 83.[address] Radha Schulz MD Work Phone: [facility] 11-29-2024 10:57-0500 Diastolic blood pressure 80 mm[Hg] Dr. Radha Schulz MD Work Phone: [facility] 11-29-2024 10:57-0500 Heart rate 58 /min Dr. Radha Schulz MD Work Phone: [facility] 11-29-2024 10:57-0500 SaO2% (BldA) [Mass fraction] 98 % Dr. Radha Schulz MD Work Phone: [facility] 11-29-2024 10:57-0500 Systolic blood pressure 120 mm[Hg] Dr. Radha Schulz MD Work Phone: [facility] 07-29-2022 06:29-0400 Diastolic blood pressure 64 mm[Hg] [facility] Work Phone: 07-29-2022 06:29-0400 Heart rate 69 /min [facility] Work Phone: 07-29-2022 06:29-0400 Respiratory rate 19 /min [facility] Work Phone: 07-29-2022 06:29-0400 SaO2% (BldA) [Mass fraction] 98 % [facility] Work Phone: 07-29-2022 06:29-0400 Systolic blood pressure 127 mm[Hg] [facility] Work Phone: 07-29-2022 05:39-0400 Body height 177.8 cm [facility] Work Phone: 07-29-2022 05:39-0400 Body mass index (BMI) [Ratio] 25.9 kg/m2 [facility] Work Phone: 07-29-2022 05:39-0400 Body temperature 98.1 [degF] [facility] Work Phone: 07-29-2022 05:39-0400 Body weight 82.2 kg [facility] Work Phone: Encounters Encounter Date Encounter Type Care Provider Facility Start: 05-24-2025 End: 05-24-[address] Radha Schulz MD Work Phone: -Laboratory [facility] Start: 05-24-2025 End: 05-24-[address] Luis Angel Roque MD -Laboratory [facility] Start: 05-24-2025 End: 05-24-2025 ambulatory Luis Angel Roque Facility:[facility] Start: 2025 End: 2025 Emergency department patient visit Dr. Radha Schulz MD Work Phone: -Emergency Department Work Phone: Start: 01-02-2025 End: 01-02-[address] Kamran Zambrano MD -Radiology, [place] Work Phone: Start: 01-02-2025 End: 01-02-2025 ambulatory Kamran Zambrano Facility:[facility] Start: 11-29-2024 End: 11-29-2024 Patient encounter procedure Alex HENRDICKSON -[facility] Work Phone: Start: 11-29-2024 End: 11-29-2024 ambulatory Alex HENDRICKSON Facility[place] [place] Start: 02-22-2024 End: 02-22-2024 ambulatory [facility] Work Phone: Start: 02-22-2024 End: 02-22-2024 Patient encounter procedure [facility] Start: 02-20-2023 End: 02-20-2023 ambulatory [facility] Work Phone: Start: 02-20-2023 End: 02-20-2023 Patient encounter procedure [facility] Start: 08-22-2022 End: 08-22-2022 ambulatory [facility] Work Phone: Start: 08-22-2022 End: 08-22-2022 Patient encounter procedure [facility] Start: 07-29-2022 End: 07-29-2022 Emergency department patient visit [facility] Procedures Date Procedure Procedure Detail Performing Clinician Start: 05-24-2025 Prostate specific an tigen measurement Dr. Radha Schulz MD Work Phone: Comment on above: This test was perfor med using the [employer] tPSA method. Measured values of a patient sample can vary depending on the testing procedure used. PSA values determined on patient samples by different testing procedures cannot be used interchangeably. If there is a change in PSA assays while monitoring therapy, sequential testing should be performed to confirm baseline values. Start: 05-24-2025 Vitamin D, 25-hydrox y measurement Dr. Radha Schulz MD Work Phone: Comment on above: Vitamin D StatusDefi ciency: <20 ng/mL (50nmol/L)Insufficiency: 20-30 ng/mL (50-75 nmol/L)Sufficiency: 30-100 ng/mL (75-250 nmol/L)Toxicity: >100 ng/mL (>250 nmol/L) Start: 01-02-2025 Plain x-ray of wrist Dr Denise Schulz MD Work Phone: Start: 07-29-2022 Plain chest X-ray Plan of Treatment Date Care Activity Detail Author Start: 2025 [facility] Patient Education [facility] Work Phone: Patient referral [facility] Work Phone: Immunizations Immunization Date Immunization Notes Care Provider Fa cility 11-29-2024 tetanus toxoid, redu niyah diphtheria toxoid, and acellular pertussis vaccine, adsorbed Dr. Radha Schulz MD Work Phone: [facility] 08-19-2021 Influenza virus vaccine [facility] 01-14-2021 Covid ([employer]) [facility] Payers Date Payer Category Payer Private Health Insurance [id number] 2024 Medicare [id number] 2024 Self-pay [id number] Medicare MEDICARE PART A B [id number] Private Health Insurance [id number] Unknown COMMERCIAL OTHER [id number] Unknown [employer] [id number] Unknown AARP MCR ADV [id number] Unknown [id number] Unknown [id number] Unknown [id number] Social History Date Type Detail Facility Start: [facility] Start: 07-07-2019 Non-smoker [facility] Start: 1950 Sex Assigned At Male [facility] Start: [facility] Start: 2025 Sex Male (finding) [facility] Mental Status Date Assessment Result Facility 2025 Cognitive function Level Of Cons ciousness Awake;Alert;Appropriate;Follow s Commands [facility] Work Phone: 07-29-2022 Cognitive function Voice/Name [facility] Work Phone: Discharge summary 2025 Note Date & Type Note Facility 2025 Discharge summary [facility] Discharge summary 2025 Note Date & Type Note Facility 2025 Discharge summary Note Date/Time 2025 3:29pm [facility] Medical Records Department [address] [place] [address] Emergency Department Summary 02/03/25 MR#: [id number] Acct: [id number] Name: LIA MEDEL Rep #:[id number] 75 From: Bartolome Kyle MD PCP: Dr. Radha Schulz MD Status:REG ER Location: ED HPI History of Present Illness Chief Complaint: Fatigue Detail of Chief Complaint: Patient does not complain of fatigue. Complains of being anxious. Informant: patient Onset/Context/Timing Onset: - (Intermittently since the of his 5 years ago.) Context: Sudden Onset Timing: Intermittent Quality: Feels anxious nervous and experiencing palpitations. Location: Generalized Current Severity: Gone Maximum Severity: Moderate Worsened by: Nothing other than he still is grieving the loss of his . Relieved by: Not applicable Associated Symptoms Associated Symptoms: palpitations Narrative Narrative: Patient is a 75-year-old male. He was seen last for similar presentation July 2022. He was also seen August 22 for palpitations etc. Patient states his primary care physician is Dr. Schulz. He has been referred to a therapist. He is never followed up with relaxation techniques. He states he also has a bump on his arm that he has had since he received the COVID-vaccine in 2019. Patient denies fever, chills night sweats. He denies headache, visual, ocular auditory symptoms. Patient has upper respiratory symptoms. Patient presently denies chest pain shortness of breath difficulty breathing. He had no chest pain or shortness of breath when this occurred. He states he was driving to [employer] to clam picker his granddaughter. He denies abdominal pain, nausea, vomiting or diarrhea. Nuys black or maroon-colored stool. He denies urologic symptoms. He denies paresthesia, anesthesia or motor weakness. Prior similar symptoms: Yes Recent Illness/Hospitalization: No PFSH [facility] Medical History Cat bite Hypokalemia HTN (hypertension) Home Medications ?Medication ?Instructions ?Recorded ?Last Taken ?Type metoprolol tartrate 100 mg tablet 100 mg PO DAILY 06/17 01/04 Unknown History potassium chloride 10 mEq 10 meq PO DAILY 07/07/19 Unk nown History tablet,extended release amlodipine 5 mg tablet 5 mg PO DAILY #30 tabs 08/23 Unknown Rx lisinopril 20 1 tab PO DAILY #0 tabs 08/23 Unknown Rx mg-hydrochlorothiazide 25 mg tablet amoxicillin 875 mg-potassium 1 tab PO BID #14 tabs Unknown Rx clavulanate 125 mg tablet Allergy/AdvReac Type Severity Reaction Status Date / Time No Known Allergies Allergy Verified 02/03/25 14:51 Family History Mother Colon cancer Father CAD (coronary artery disease) Social History Smoking Status: Former smoker how long ago did patient quit smokin years alcohol intake: current alcohol intake frequency: a few times a week Alcohol type: beer substance use type: does not use ROS ROS ED Constitutional Constitutional ED: Denies chills, fever(s), subjective, sweats or weight loss Eyes Eyes: Denies blurry vision or change in vision ENT ENT ED: Denies ear pain, rhinorrhea or sore throat Cardiovascular Cardiovascular: Reports palpitations; Denies chest pain or racing heartbeat Respiratory/Chest Respiratory/Chest: Denies cough, dyspnea or dyspnea on exertion Gastrointestinal Gastrointestinal: Reports abdominal pain; Denies nausea or vomiting Genitourinary Genitourinary ED: Denies dysuria, hematuria or urinary frequency Musculoskeletal Musculoskeletal: Denies arthralgias, back pain, myalgias or neck pain Integumentary Reports other Details: Bumped the lateral proximal right arm ; Denies abscess or rash Neurologic Neurologic: Denies headache(s) or paresthesias Psychiatric Psychiatric: Denies anxiety or depression EXAM Physical Exam Const Vital Signs: 02/03/25 14:47 02/03/25 14:51 Temperature 97.9 F Temperature Source Oral Pulse Rate 93 Respiratory Rate 16 Respiratory Effort Normal Respiratory Pattern Normal Blood Pressure 155/68 H Blood Pressure Mean 97 Pulse Ox 99 Oxygen Delivery Method Room Air Positive well nourished and well developed General Appearance ED: well developed and NAD; Negative for pallor HEENT Reports moist mucous membranes HEENT Narrative: Head is atraumatic normocephalic. Ears normal. Nares patent. Eyes PERRL and EOMs intact bilaterally General Eye ED: Negative for pale conjunctiva or scleral icterus Neck no lymphadenopathy, supple and no JVD Resp normal respiratory effort and clear to auscultation bilaterally Cardio regular rate, regular rhythm, S1 normal heart sound, S2 normal heart sound and no murmurs GI normal to inspection, nondistended, normoactive bowel sounds, non-tender, non-distended and no masses; Negative for hepatosplenomegaly Extremity normal to inspection Extremity Narrative: Patient has a mobile firm mass lateral proximal right arm consistent with a lipoma. There is no erythema, warmth, induration or fluctuance. He has no axillary lymphadenopathy. He has full active range of motion of the shoulder and elbow. Neuro oriented x3, CN's II-XII intact bilaterally and no sensory deficits noted Sensorium / Orientation: alert Motor Exam: strength 5/5 throughout Psych Psych Narrative: Patient is slow to respond to questions. He speaks softly. He states it is very difficult for him to get over the loss of his . He does not have suicidal homicidal ideation. Mood & Affect: depressed Skin no rashes or lesions noted, no wounds and skin turgor normal General Skin Exam: elasticity normal; Negative for jaundice or pallor MDM MDM MDM Narrative Medical decision making narrative: Patient did not buy opinion had a anxiety panic attack. Has had these for approximately 5 years. He has not been seen in the emergency room or similar episodes since July 2022. His primary care physician is aware of this. Hehas been referred to therapist. He is not compliant with follow-up. Since he has no symptoms at this time he was asked what he would like for me to accomplish. He states I can go home. Discharge Plan Triage Chief Complaint: Fatigue ED Provider: Bartolome Kyle Dx/Rx/DC Orders Clinical Impression: Adjustment reaction with anxiety and depression, Palpitations Instructions: ED Adjustment Disorder Prescriptions: No Action amoxicillin-pot clavulanate 875-125 mg tablet 1 tab PO BID Qty: 14 0RF metoprolol tartrate 100 MG tablet 100 mg PO DAILY potassium chloride 10 MEQ tablet extended release 10 meq PO DAILY lisinopril-hydrochlorothiazide 1 EACH tablet 1 tab PO DAILY Qty: 0 0RF amlodipine 5 mg tablet 5 mg PO DAILY Qty: 30 0RF Primary Care Provider: Radha Schulz Referrals: Radha Schulz MD [Primary Care Provider] - 1 Week Print Language: Latvian Disposition Disposition: Home, Self Care What to do if you have Problems For any increased pain, shortness of breath, bleeding, nausea or vomiting, chestpain, or any unexpected problems, contact your Primary Care Provider. Call [facility] ([phone]) or report to the closest Emergency Room. Call 911 if necessary. 02/03/25 1521 <Electronically signed by Bartolome Kyle MD> Cosigner Signature (if applicable): CC: Dr. Radha Schulz MD ~ Signed [facility] Work Phone: Evaluation note 11-29-2024 Note Date & Type Note Facility 11-29-2024 Evaluation note Diagnosis Onset Date Resolution Cat bite acute November 29, 2024 10:51am [facility] Work Phone: Evaluation note Note Date & Type Note Facility Evaluation note No assessment information availa ble [facility] Work Phone: Reason for referral (narrative) Note Date & Type Note Facility Reason for referral (narrative) No reason for referral information available [facility] Work Phone: Summary Purpose Family History No Family History Records Found Relationship Condition Age at Onset Recorded Date/T [place] mother Malignant neoplasm of colon Unknown father Coronary artery disease Unknown Advance Directives No Advanced Directives Records Found Advance Directive Response Recorded Date/ Time Living Will No July 29, 2022 5:57am Power of Glass Sander Belt No July 5:57am Advance Directive Response Recorded Date/ Time Living Will Yes 2025 2:51pm Do you have a Healthcare Power of Glass Sander Belt? Yes 2025 2:51pm Name of Medical Power of Glass Sander Belt [facility] 2025 2:51pm Chief Complaint and Reason for Visit Chief Complaint palpitations Chief Complaint Admit Date cat bite right thumb November 29, 2024 10:51am LEFT WRIST January 02, 2025 11:06am jittery 2025 2:4 5pm Reason for Visit Admit Date Cat bite November 29, 2024 1 0:51am Chief Complaint Admit Date jittery 2025 2:4 5pm Additional Source Comments (unrecognized sect ion and content) No Status Records FoundNo Status Records Found INFORMATION SOURCE (unrecogn ized section and content) DATE CREATED AUTHOR 07/18/2021 [facility] DATE CREATED AUTHOR AUTHOR'S ORGANIZ ATION 07/15/2025 [facility] Goals (unrecognized section and content) Goals may be documented in a n alternate sectionGoals may be documented in an alternate sectionGoals may be documented in an alternate sectionGoals may be documented in an alternate sectionGoals may be documented in an alternate sectionGoals may be documented in an alternate section Care Teams (unrecognized sec tion and content) Team Status: Active Member Role Status Dates Dr. Radha Schulz MD Family Provider Active Dr. Radha Schulz MD Primary Care Provider Active Team Status: Inactive Member Role Status Dates Dr. Radha Schulz MD Primary Care Prov ider, Attending Provider, Referring Provider Active Team Status: Inactive Member Role Status Dates Dr. Radha Schulz MD Primary Care Provider, Attendin g Provider Active Team Status: Active Member Role Status Dates Dr. Radha Schulz MD Primary Care Provider Active Team Status: Inactive Member Role Status Dates Dr. Radha Schulz MD Primary Care Provider Active Start: November 29, 2024 End: November 29, 2024 Dr. Radha Schulz MD Referring Provider Active Start: November 29, 2024 End: November 29, 2024 Alex Pineda PA, PA Attending Provider Active Start: November 29, 2024 End: November 29, 2024 Team Status: Inactive Member Role Status Dates Dr. Radha Schulz MD Primary Care Provider Active Start: January 02, 2025 End: January 02, 2025 Dr. Kamran Zambrano MD Attending Provider Active Start: January 02, 2025 End: January 02, 2025 Dr. Kamran Zambrano MD Referring Provider Active Start: January 02, 2025 End: January 02, 2025 Team Status: Inactive Member Role Status Dates Dr. Radha Schulz MD Primary Care Provider Active Start: 2025 End: 2025 Dr. Bartolome Kyle MD Emergency Provider Active Sta rt: 2025 End: 2025 Team Status: Active Member Role/Relationship Status Dates Luis Angel Roque MD Primary Care Provider Active Team Status: Inactive Member Role/Relationship Status Dates Dr. Radha Schulz MD Primary Care Provider Active Start: 2025 End: 2025 Dr. Bartolome Kyle MD Attending Provider Active Sta rt: 2025 End: 2025 Dr. Bartolome Kyle MD Emergency Provider Active Sta rt: 2025 End: 2025 Team Status: Inactive Member Role/Relationship Status Dates Luis Angel Roque MD Primary Care Provider Active St art: May 24, 2025 End: May 24, 2025 Luis Angel Roque MD Attending Provider Active Start : May 24, 2025 End: May 24, 2025 Luis Angel Roque MD Referring Provider Active Start : May 24, 2025 End: May 24, 2025 FOR RECORDS PERTAINING TO PATIENTS WHO ARE OR HAVE BEEN ENROLLED IN A CHEMICAL DEPENDENCY/SUBSTANCEABUSE PROGRAM, SOME INFORMATION MAY BE OMITTED. This clinical summary was aggregated from multiple sources. Caution should be exercised in using it in the provision of clinical care. This summary normalizes information from multiple sources, and as a consequence, information in this document may materially change the coding, format and clinical context of patient data. In addition, data may be omitted in some cases. CLINICAL DECISIONS SHOULD BE BASED ON THE PRIMARY CLINICAL RECORDS. [employer] [facility]. provides no warranty or guarantee of the accuracy or completeness of information in this document.
[2025-10-12 06:06] LABS: Mucous, Urine 0 SEEN /hpf (<or=2+)
--- NOTE | 2025-10-12 06:08 | ED.RN ---
dr esparza indicates fluid resuscitation is not needed at this time
[2025-10-12 06:09] LABS: Color, Urine Yellow (Yellow); Glucose, Dipstick Normal (Normal); Ketone-Dipstick 5 mg/dl (Negative); Leukocyte Esterase-Dipstick 25 /ul (Negative); Nitrite-Dipstick Negative (Negative); Occult Blood-Urine 10 /ul (Negative); Protein-Dipstick 30 mg/dl (Negative); Specific Gravity, Urine 1.025 (1.002-1.030)
--- OUTSIDE RECORDS SUMMARY | 2025-10-12 06:11 | XMS RPT_ITS | CCD ---
Author Organization [facility] Care Team Providers Care Data Report Analyst Name Role Phone Jazz NGUYEN, Dr. Radha [...] Auto (Unsp spec) [#/Vol] 1.77 10*3/uL 0.83-4.51 [facility] Absolute neutrophil countOrd ered By: Luis Angel Roque on 05-24-2025 Neutrophils (Bld) [#/Vol] 3.2 10*3/uL 2.0-7.7 [facility] Anion gap in Serum or Plasma Ordered By: Luis Angel Roque on 05-24-2025 Anion gap [Moles/Vol] 10 mmol/L 5-15 [facility] Automated lymphocyte count a s percentage of total leukocytesOrdered By: Luis Angel Roque on 05-24-2025 Lymphocytes/100 WBC Auto (Unsp spec) 29.8 % 19-41 [facility] BUN/creatinine ratioOrdered By: Luis Angel Jude on 05-24-2025 Urea nitrogen/Creatinine [Mass ratio] 18.8 mg/mg 10-20 [facility] Basophil percentageOrdered B y: Luis Angel Roque on 05-24-2025 Basophils/100 WBC (Bld) 1.0 % 0-1 [facility] Bilirubin, totalOrdered By: Luis Angel Roque on 05-24-2025 Bilirubin [Mass/Vol] 0.73 mg/dL 0.00-1.30 [facility] CBC W/Diff, Automatedon Absolute Lymph 1.77 X10 3/uL Normal 0.83-4.51 [facility] Comment on above: Performed By: #### L 100.0100, L500.4050, L500.4100, L501.9910, L506.1001 #### [facility] Laboratory [facility] [place], [address] Absolute Neut 3.2 X10 3/uL Normal 2.0-7.7 [facility] Comment on above: Performed By: #### L 100.0100, L500.4050, L500.4100, L501.9910, L506.1001 #### [facility] Laboratory [address] [place], [address] Basophils/100 WBC (Bld) 1.0 % Normal 0-1 [facility] Comment on above: Performed By: #### L 100.0100, L500.4050, L500.4100, L501.9910, L506.1001 #### [facility] Laboratory [address] [place], [address] Eosinophils/100 WBC (Bld) 5.4 % High 0-5 [facility] Comment on above: Performed By: #### L 100.0100, L500.4050, L500.4100, L501.9910, L506.1001 #### [facility] Laboratory [address] [place], [address] Erythrocyte distribution width (RBC) [Ratio] 13.1 % Normal 11.6-14.6 [facility] Comment on above: Performed By: #### L 100.0100, L500.4050, L500.4100, L501.9910, L506.1001 #### [facility] Laboratory [address] [place], [address] Hematocrit (Bld) [Volume fraction] 39.9 % Low 40-54 [facility] Comment on above: Performed By: #### L 100.0100, L500.4050, L500.4100, L501.9910, L506.1001 #### [facility] Laboratory [address] [place], [address] Hemoglobin (Bld) [Mass/Vol] 12.9 g/dL Low 13.0-16.5 [facility] Comment on above: Performed By: #### L 100.0100, L500.4050, L500.4100, L501.9910, L506.1001 #### [facility] Laboratory [address] [place] [place], [address] IG% 0.300 Normal 0.0-0.9 [facility] Comment on above: Result Comment: IG% - Immature Granulocytes (promyelocytes, myelocytes and metamyelocytes) > 1% indicates that a LEFT SHIFT is Present. Performed By: #### L 100.0100, L500.4050, L500.4100, L501.9910, L506.1001 #### [facility] Laboratory [address] [place] [place], [address] Lymphocytes/100 WBC (Bld) 29.8 % Normal 19-41 [facility] Comment on above: Performed By: #### L 100.0100, L500.4050, L500.4100, L501.9910, L506.1001 #### [facility] Laboratory [address] [place] [place], [address] MCH (RBC) [Entitic mass] 30.9 pg Normal 27.0-32.0 [facility] Comment on above: Performed By: #### L 100.0100, L500.4050, L500.4100, L501.9910, L506.1001 #### [facility] Laboratory [address] [place], [address] MCHC (RBC) [Mass/Vol] 32.3 g/dL Normal 32-36 [facility] Comment on above: Performed By: #### L 100.0100, L500.4050, L500.4100, L501.9910, L506.1001 #### [facility] Laboratory [address] [place], [address] MCV (RBC) [Entitic vol] 95.5 fL High 80-94 [facility] Comment on above: Performed By: #### L 100.0100, L500.4050, L500.4100, L501.9910, L506.1001 #### [facility] Laboratory [address] [place] [place], [address] Monocytes/100 WBC (Bld) 10.3 % High 0-10 [facility] Comment on above: Performed By: #### L 100.0100, L500.4050, L500.4100, L501.9910, L506.1001 #### [facility] Laboratory [address] [place], [address] Neutrophils/100 WBC (Bld) 53.2 % Normal 47-70 [facility] Comment on above: Performed By: #### L 100.0100, L500.4050, L500.4100, L501.9910, L506.1001 #### [facility] Laboratory [address] [place] [place], [address] Nucleated RBC (Bld) [#/Vol] 0 10*3/uL Normal 0-5 [facility] Comment on above: Performed By: #### L 100.0100, L500.4050, L500.4100, L501.9910, L506.1001 #### [facility] Laboratory [address] [place] [place], [address] Platelet mean volume (Bld) [Entitic vol] 11.6 fL Normal 6.2-12.0 [facility] Comment on above: Performed By: #### L 100.0100, L500.4050, L500.4100, L501.9910, L506.1001 #### [facility] Laboratory [address] [place], [address] Platelets (Bld) [#/Vol] 165 10*3/uL Normal 150-450 [facility] Comment on above: Performed By: #### L 100.0100, L500.4050, L500.4100, L501.9910, L506.1001 #### [facility] Laboratory [address] [place], [address] RBC (Bld) [#/Vol] 4.18 10*6/uL Low 4.6-6.2 [facility] Comment on above: Performed By: #### L 100.0100, L500.4050, L500.4100, L501.9910, L506.1001 #### [facility] Laboratory [address] [place], [address] RDW SD 45.3 fl High 35.1-43.9 [facility] Comment on above: Performed By: #### L 100.0100, L500.4050, L500.4100, L501.9910, L506.1001 #### [facility] Laboratory [address] [place], [address] WBC (Bld) [#/Vol] 5.9 10*3/uL Normal 4.4-11.0 [facility] Comment on above: Performed By: #### L 100.0100, L500.4050, L500.4100, L501.9910, L506.1001 #### [facility] Laboratory [address] [place], [address] Calculated very low density lipoprotein (VLDL) cholesterol measurementOrdered By: Luis Angel Roque on 05-24-2025 Calculated very low density lipoprotein (VLDL) cholesterol measurement 13 mg/dL 5-40 [facility] Carbon dioxide, total [Moles /volume] in Central venous bloodOrdered By: Luis Angel Roque on 05-24-2025 CO2 [Moles/Vol] 25.1 mmol/L 21.0-32.0 [facility] Chloride assayOrdered By: Edelmira Roque on 05-24-2025 Chloride [Moles/Vol] 103 mmol/L 98-108 [facility] Comprehensive Metabolic Prof ilon 05-24-2025 Albumin [Mass/Vol] 4.2 g/dL Normal 3.4-4.8 [facility] Comment on above: Performed By: #### L 100.0100, L500.4050, L500.4100, L501.9910, L506.1001 #### [facility] Laboratory [address] [place], [address] Albumin/Globulin [Mass ratio] 1.7 {ratio} Normal 0.9-2.4 [facility] Comment on above: Performed By: #### L 100.0100, L500.4050, L500.4100, L501.9910, L506.1001 #### [facility] Laboratory [address] [place], [address] ALK PHOS 61 U/L Normal 40-129 [facility] Comment on above: Performed By: #### L 100.0100, L500.4050, L500.4100, L501.9910, L506.1001 #### [facility] Laboratory [address] [place], [address] ALT [Catalytic activity/Vol] 12 U/L Normal <=46 [facility] Comment on above: Performed By: #### L 100.0100, L500.4050, L500.4100, L501.9910, L506.1001 #### [facility] Laboratory [address] [place], [address] AST [Catalytic activity/Vol] 19 U/L Normal <=37 [facility] Comment on above: Performed By: #### L 100.0100, L500.4050, L500.4100, L501.9910, L506.1001 #### [facility] Laboratory [address] [place], [address] Bilirubin [Mass/Vol] 0.73 mg/dL Normal 0.00-1.30 [facility] Comment on above: Performed By: #### L 100.0100, L500.4050, L500.4100, L501.9910, L506.1001 #### [facility] Laboratory [address] [place], [address] BUN/CRE 18.8 RATIO Normal 10-20 [facility] Comment on above: Performed By: #### L 100.0100, L500.4050, L500.4100, L501.9910, L506.1001 #### [facility] Laboratory [address] [place], [address] Calcium [Mass/Vol] 9.2 mg/dL Normal 7.6-11.0 [facility] Comment on above: Performed By: #### L 100.0100, L500.4050, L500.4100, L501.9910, L506.1001 #### [facility] Laboratory [address] [place], [address] Chloride [Moles/Vol] 103 mmol/L Normal 98-108 [facility] Comment on above: Performed By: #### L 100.0100, L500.4050, L500.4100, L501.9910, L506.1001 #### [facility] [address] [place], [address] CO2 [Moles/Vol] 25.1 mmol/L Normal 21.0-32.0 [facility] Comment on above: Performed By: #### L 100.0100, L500.4050, L500.4100, L501.9910, L506.1001 #### [facility] Laboratory [address] [place], [address] Creatinine [Mass/Vol] 1.72 mg/dL High 0.70-1.20 [facility] Comment on above: Performed By: #### L 100.0100, L500.4050, L500.4100, L501.9910, L506.1001 #### [facility] [address] [place], [address] GAP 10 Normal 5-15 [facility] Comment on above: Performed By: #### L 100.0100, L500.4050, L500.4100, L501.9910, L506.1001 #### [facility] Laboratory [address] [place], [address] GFR/1.73 sq M.predicted among non-blacks MDRD (S/P/Bld) [Vol rate/Area] 40 mL/min/{1.73_m2} Low >60 [facility] Comment on above: Result Comment: mL/m in/1.73m2 CKD-EPI Creatinine Equation (2020) Performed By: #### L 100.0100, L500.4050, L500.4100, L501.9910, L506.1001 #### [facility] Laboratory [address] [place], [address] Globulin (S) [Mass/Vol] 2.5 g/dL Normal 2.2-4.2 [facility] Comment on above: Performed By: #### L 100.0100, L500.4050, L500.4100, L501.9910, L506.1001 #### [facility] Laboratory [address] [place], [address] Glucose [Mass/Vol] 93 mg/dL Normal 70-99 [facility] Comment on above: Performed By: #### L 100.0100, L500.4050, L500.4100, L501.9910, L506.1001 #### [facility] Laboratory [address] [place], [address] Potassium [Moles/Vol] 5.0 mmol/L Normal 3.3-5.1 [facility] Comment on above: Performed By: #### L 100.0100, L500.4050, L500.4100, L501.9910, L506.1001 #### [facility] [address] [place], [address] Sodium [Moles/Vol] 138 mmol/L Normal 133-145 [facility] Comment on above: Performed By: #### L 100.0100, L500.4050, L500.4100, L501.9910, L506.1001 #### [facility] Laboratory [address] [place], [address] T PROT 6.7 g/dL Normal 5.9-8.4 [facility] Comment on above: Performed By: #### L 100.0100, L500.4050, L500.4100, L501.9910, L506.1001 #### [facility] [address] [place], [address] Urea nitrogen [Mass/Vol] 32 mg/dL High 4-19 [facility] Comment on above: Performed By: #### L 100.0100, L500.4050, L500.4100, L501.9910, L506.1001 #### [facility] Laboratory [address] [place], [address] Eosinophil percentageOrdered By: Luis Angel Roque on 05-24-2025 Eosinophils/100 WBC (Bld) 5.4 % High 0-5 [facility] Erythrocyte distribution wid th ratioOrdered By: Luis Angel Roque on 05-24-2025 Erythrocyte distribution width (RBC) [Ratio] 13.1 % 11.6-14.6 [facility] Erythrocyte distribution wid th standard deviationOrdered By: Luis Angel Roque on 05-24-2025 Erythrocyte distribution width (RBC) [Ratio] 45.3 fl High 35.1-43.9 [facility] Glomerular filtration rate ( GFR) estimation/1.73 sq m using serum, plasma, or whole bOrdered By: Luis Angel Roque on 05-24-2025 GFR/1.73 sq M.predicted among non-blacks MDRD (S/P/Bld) [Vol rate/Area] 40 mL/min/{1.73_m2} Low >60 [facility] Comment on above: mL/min/1.73m2 CKD-EP I Creatinine Equation (2020) Hematocrit Auto (Bld) [Volum e fraction]Ordered By: Luis Angel Roque on 05-24-2025 Hematocrit (Bld) [Volume fraction] 39.9 % Low 40-54 [facility] Hemoglobin measurementOrdere d By: Luis Angel Roque on 05-24-2025 Hemoglobin (Bld) [Mass/Vol] 12.9 g/dL Low 13.0-16.5 [facility] Immature granulocytes/100 WB C Auto (Bld)Ordered By: Luis Angel Roque on 05-24-2025 Immature granulocytes/100 WBC (Bld) 0.300 % 0.0-0.9 [facility] Comment on above: IG% - Immature Granu locytes (promyelocytes, myelocytes and metamyelocytes) > 1% indicates that a LEFT SHIFT is Present. LDL calc ser/plasOrdered By: Luis Angel Roque on 05-24-2025 Cholesterol in LDL [Mass/Vol] 119 mg/dL [facility] Comment on above: Boacecqufv=625-814 m g/dL & Higher Yaew=610 mg/dL or greater Laboratory - Chemistry and C hemistry - challengeOrdered By: Luis Angel Roque on 05-24-2025 AST [Catalytic activity/Vol] 19 U/L <38 [facility] Lipid Profileon 05-24-2025 CHOL:HDL 3.[address] [facility] Comment on above: Performed By: #### L 100.0100, L500.4050, L500.4100, L501.9910, L506.1001 #### [facility] Laboratory [address] [place], [address] Cholesterol [Mass/Vol] 189 mg/dL Normal <=200 [facility] Comment on above: Result Comment: Chol esterol level, Desirable <200 mg/dL Borderline high cholesterol 200-239 mg/dL High cholesterol >=240 mg/dL Recommendations of the NCEP Adult Treatment Panel for the following risk-cutoff thresholds for the [place] population. Performed By: #### L 100.0100, L500.4050, L500.4100, L501.9910, L506.1001 #### [facility] [address] [place], [address] Cholesterol in HDL [Mass/Vol] 58 mg/dL Normal [facility] Comment on above: Result Comment: Mary onal Cholesterol Education Program (NCEP) guidelines: <40 mg/dL: Low HDL-cholesterol (major risk factor for CHD) >= 60 mg/dL: High HDL-cholesterol (negative risk factor for CHD) HDL-cholesterol is affected by a number of factors, e.g. smoking, exercise, hormones, sex and age. Performed By: #### L 100.0100, L500.4050, L500.4100, L501.9910, L506.1001 #### [facility] [address] [place], [address] Cholesterol in LDL [Mass/Vol] 119 mg/dL Normal [facility] Comment on above: Result Comment: Bord cowhcu=351-027 mg/dL Higher Vplv=015 mg/dL or greater Performed By: #### L 100.0100, L500.4050, L500.4100, L501.9910, L506.1001 #### [facility] [address] [place], [address] Cholesterol in VLDL [Mass/Vol] 13 mg/dL Normal 5-40 [facility] Comment on above: Performed By: #### L 100.0100, L500.4050, L500.4100, L501.9910, L506.1001 #### [facility] [address] [place], [address] Triglyceride [Mass/Vol] 64 mg/dL Normal [facility] Comment on above: Result Comment: The drugs N-Acetylcysteine and Metamizole may falsely depress this assay. Normal range: <150 mg/dL Borderline High: 150-199 mg/dL High: 200-499 mg/dL Very High: >500 mg/dL Performed By: #### L 100.0100, L500.4050, L500.4100, L501.9910, L506.1001 #### [facility] [address] [place], [place], [address] MCV (mean corpuscular volume ) determinationOrdered By: Luis Angel Roque on 05-24-2025 MCV (RBC) [Entitic vol] 95.5 fL High 80-94 [facility] Mean corpuscular hemoglobin (MCH) determinationOrdered By: [facility] on 05-24-2025 MCH (RBC) [Entitic mass] 30.9 pg 27.0-32.0 [facility] Mean corpuscular hemoglobin concentration (MCHC) determinationOrdered By: [facility] on 05-24-2025 MCHC (RBC) [Mass/Vol] 32.3 g/dL 32-36 [facility] Mean platelet volume determi nationOrdered By: [facility] on 05-24-2025 Platelet mean volume (Bld) [Entitic vol] 11.6 fL 6.2-12.0 [facility] Monocyte percentageOrdered B y: Luis Angel Roque on 05-24-2025 Monocytes/100 WBC (Bld) 10.3 % High 0-10 [facility] Neutrophil percentageOrdered By: [facility] on 05-24-2025 Neutrophils/100 WBC (Bld) 53.2 % 47-70 [facility] Nucleated red blood cell per centageOrdered By: [facility] on 05-24-2025 Nucleated RBC/100 WBC (Bld) [Ratio] 0 % 0-5 [facility] PSA,Total - Annual Screenon 05-24-2025 PSA,TOT SCREEN 1.35 ng/mL Normal 0.02-4.00 [facility] Comment on above: Result Comment: This test [...] L 100.0100, L500.4050, L500.4100, L501.9910, L506.1001 #### [facility] [address] [place] [place], [address] Platelet countOrdered By: Edelmira Roque on 05-24-2025 Platelets (Bld) [#/Vol] 165 10*3/uL 150-450 [facility] Potassium measurement (mass/ volume)Ordered By: Luis Angel Roque on 05-24-2025 Potassium (Unsp spec) [Mass/Vol] 5.0 mmol/L 3.3-5.1 [facility] RBC Auto (Bld) [#/Vol]Ordere d By: Luis Angel Roque on 05-24-2025 RBC (Bld) [#/Vol] 4.18 10*6/uL Low 4.6-6.2 [facility] Screening total cholesterol/ high density lipoprotein (HDL) cholesterol ratioOrdered By: Luis Angel Roque on 05-24-2025 Cholesterol.total/Choles terol in HDL [Mass ratio] 3.29 {ratio} [facility] Serum creatinine measurement (mass/volume)Ordered By: Luis Angel Roque on 05-24-2025 Creatinine [Mass/Vol] 1.72 mg/dL High 0.70-1.20 [facility] Serum globulin measurementOr dered By: Luis Angel Roque on 05-24-2025 Globulin (S) [Mass/Vol] 2.5 g/dL 2.2-4.2 [facility] Serum glucose measurement (m ass/volume)Ordered By: Luis Angel Roque on 05-24-2025 Glucose [Mass/Vol] 93 mg/dL 70-99 [facility] Serum or plasma alanine sabillon otransferase (ALT) measurementOrdered By: Luis Angel Roque on 05-24-2025 ALT [Catalytic activity/Vol] 12 U/L <47 [facility] Serum or plasma albumin ana urement (mass/volume)Ordered By: Luis Angel Roque on 05-24-2025 Albumin [Mass/Vol] 4.2 g/dL 3.4-4.8 [facility] Serum or plasma albumin/glob ulin mass ratioOrdered By: Luis Angel Roque on 05-24-2025 Albumin/Globulin [Mass ratio] 1.7 {ratio} 0.9-2.4 [facility] Serum or plasma alkaline sonu sphatase measurementOrdered By: Luis Angel Roque on 05-24-2025 ALP [Catalytic activity/Vol] 61 U/L 40-129 [facility] Serum or plasma calcium ana urement (mass/volume)Ordered By: Luis Angel Roque on 05-24-2025 Calcium [Mass/Vol] 9.2 mg/dL 7.6-11.0 [facility] Serum or plasma cholesterol in HDL measurement (mass/volume)Ordered By: Luis Angel Roque on 05-24-2025 Cholesterol in HDL [Mass/Vol] 58 mg/dL >40 [facility] Comment on above: National Cholesterol Education Program (NCEP) guidelines:<40 mg/dL: Low HDL-cholesterol (major risk factor for CHD)>= 60 mg/dL: High HDL-cholesterol (negative risk factor for CHD)HDL-cholesterol is affected by a number of factors, e.g. smoking, exercise, hormones, sex and age. Serum or plasma cholesterol measurement (mass/volume)Ordered By: Luis Angel Roque on 05-24-2025 Cholesterol [Mass/Vol] 189 mg/dL <201 [facility] Comment on above: Cholesterol level, D esirable <200 mg/dLBorderline high cholesterol 200-239 mg/dLHigh cholesterol >=240 mg/dLRecommendations of the NCEP Adult Treatment Panel for the following risk-cutoff thresholds for the [place] population. Serum or plasma urea nitroge n measurement (mass/volume)Ordered By: Luis Angel Roque on 05-24-2025 Urea nitrogen [Mass/Vol] 32 mg/dL High 4-19 [facility] Sodium levelOrdered By: Masoud Roque on 05-24-2025 Sodium [Moles/Vol] 138 mmol/L 133-145 [facility] Total proteinOrdered By: Iesha Roque on 05-24-2025 Protein [Mass/Vol] 6.7 g/dL 5.9-8.4 [facility] Triglycerides measurementOrd ered By: Luis Angel Roque on 05-24-2025 Triglyceride [Mass/Vol] 64 mg/dL <199 [facility] Comment on above: The drugs N-Acetylcy steine and Metamizole may falsely depress this assay. Normal range: <150 mg/dLBorderline High: 150-199 mg/dLHigh: 200-499 mg/dLVery High: >500 mg/dL Vitamin D,25 Hydroxyon 05-24 Vitamin D 25-OH 26.1 ng/mL Low 30-100 [facility] Comment on above: Result Comment: Minda min D Status Deficiency: <20 ng/mL (50nmol/L) Insufficiency: 20-30 ng/mL (50-75 nmol/L) Sufficiency: 30-100 ng/mL (75-250 nmol/L) Toxicity: >100 ng/mL (>250 nmol/L) Performed By: #### L 100.0100, L500.4050, L500.4100, L501.9910, L506.1001 #### [facility] Laboratory [address] 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 He denies abdominal pain, nausea, vomiting or diarrhea. Nuys black or maroon-colored stool. He denies urologic symptoms. He denies paresthesia, anesthesia or motor weakness. Prior similar symptoms: Yes Recent [facility] Medical History Cat bite Hypokalemia HTN (hypertension) [...] regular r (more content not included)... Normal [facility] Wrist min 3 [place]son 01-02-20 Wrist min 3 Views [facility] Imaging Services [address] [place], [place] [address] Wrist min 3 Views MR#: [id number] Acct: [id number] Name: LIA MEDEL Rep #: [id number] : 1950 M 74 From: Ethan Leonard i, DO PCP: Dr. Radha Schulz MD Status: REG CLI Study: Wrist min 3 Views Date of Exam: 01/02/25 Exam# [id number] Ordering Dr: Kamran Zambrano MD PROCEDURE: Left [...] Radha Schulz MD; Dr. 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 Urgent Care Visit Reporton 0 11-29-2024 Urgent Care Visit Report [facility] [address], [address] [place] [address] OFFICE VISIT Date of Service: 11/29/24 MR#: [id number] Acct: [id number] Name: LIA MEDEL Rep #: [id number] : 1950 Provider: MADHAVI Kahn Age/Sex: 74/M Location: [facility] Status: Signed Intake Vital Signs 07/29/22 05:39 [...] he said it was a stray kitten. [facility] Medical History (Updated 11/29/24 @ 12:22 by Alex HENDRICKSON, PA) Cat bite Hypokalemia HTN (hypertension) Family [...] office today for initial evaluation at the [facility] clinic status post RIF kitten bite last evening (stray which patient recovered from outside yesterday). PMH NC. Unknown last Td. Trace to absent localized discomfort at puncture wound site x 1. No complaints of fever, chills, sweats, lightheadedness/diz ziness, nausea/vomiting, or erythema, warmth, swelling at the puncture wound site. No adje-vsy-neghtec products taken to assist. No other associated [...] IM Left Deltoid 0.5 mL CX4HL 09/24/26 [id number] [employer] VIS Given Date VIS Provided VIS Publication Date 11/29/24 Single Vaccine 21 Eligibility Eligibility Date Funding Source Not Applicable Coding Level of Care Code Off vis,new,level 3 Diagnoses Cat bite W55.01XA Assessment and Plan Assessment and Plan (1) Cat bite: Status: Acute Plan: Twice daily wound care as instructed today. Tdap updated today. Augmentin as prescribed today. Dog bite form for [facility] was followed up by nursing staff and patient and faxed to [facility] for further evaluation. Follow-up with the [facility] clinic on an as-needed basis only, reporting to ED should symptoms only worsen or any other concerns develop. Patient states acknowledging understanding all the above. This note was generated with [employer] dictation software. It may contain incorrect words, spelling, and punctuation that were not noted in checking the note before signing. Orders: Orders Tdap Immunization Today Z23 - Encounter for immunization Medications: New amoxicillin-pot clavulanate 875-125 mg 1 TAB PO BID 14 tabs 0RF (more content not included)... Normal [facility] Basophil percentageOrdered B y: Radha Jazz on 02-22-2024 Chloride [Moles/Vol] 106 mmol/L 98-107 [facility] Cholesterol [Mass/Vol] 188 mg/dL <200 [facility] Comment on above: <200 mg/dL Desirable 200-240 mg/dL Borderline >240 mg/dL High Risk Glucose [Mass/Vol] 106 mg/dL 74-106 [facility] Comment on above: Fasting Glucose resu lt from 100 to 125 mg/dL suggests IMPAIRED HOMEOSTASIS per A.D.A. criteria. Potassium [Moles/Vol] 4.8 mmol/L 3.5-5.1 [facility] Sodium [Moles/Vol] 140 mmol/L 136-145 [facility] Triglyceride [Mass/Vol] 95 mg/dL <199 [facility] Comment on above: The drugs N-Acetylcy steine and Metamizole may falsely depress this assay.Serum Triglycerides Reference Interval Normal <150 mg/dL Borderline high 150 - 199 mg/dL High 200 - 499 mg/dL Very High > or = 500 mg/dL Laboratory - Chemistry and C hemistry - challengeOrdered By: Radha Schulz on 02-22-2024 Cholesterol in HDL [Mass/Vol] 62 mg/dL >40 [facility] Comment on above: The drugs N-Acetylcy steine and Metamizole may falsely depress this assay. Reference Range HDL <40 mg/dL Low HDL Cholesterol HDL >or= 60 mg/dL High HDL Cholesterol Cholesterol in LDL [Mass/Vol] 107 mg/dL 0-130 [facility] CO2 [Moles/Vol] 28.0 mmol/L 21.0-32.0 [facility] Urea nitrogen/Creatinine [Mass ratio] 20.7 mg/mg 10-20 [facility] No Panel InformationOrdered By: Radha Schulz on 02-22-2024 Estimated GFR (MDRD) Amer 46 mL/min >60 [facility] Comment on above: GFR Calc Estimated GFR (MDRD) Non-Af Amer 38 mL/min >60 [facility] Comment on above: Non- GFR Calc VLDL Cholesterol 19 mg/dL 5-40 [facility] Serum or plasma calcium ana urement (mass/volume)Ordered By: Radha Schulz on 02-22-2024 Calcium [Mass/Vol] 9.0 mg/dL 8.5-10.1 [facility] Serum or plasma creatinine m easurement (mass/volume)Ordered By: Radha Schulz on 02-22-2024 Creatinine [Mass/Vol] 1.84 mg/dL 0.70-1.30 [facility] Comment on above: The validity of the calculated GFR & GFRAA in patients over 70 years has not been determined. Clinical correlation is essential. Serum or plasma urea nitroge n measurement (mass/volume)Ordered By: Radha Schulz on 02-22-2024 Urea nitrogen [Mass/Vol] 38 mg/dL 7-18 [facility] Thin prep Papanicolaou smear with manual screeningOrdered By: Radha Schulz on 02-22-2024 Protein (U) [Mass/Vol] 10.2 mg/dL 0.0-11.8 [facility] Thin prep Papanicolaou smear with manual screening 6 5-15 [facility] Urine creatinine measurement (mass/volume)Ordered By: Radha Schulz on 02-22-2024 Creatinine (U) [Mass/Vol] 164.00 mg/dL NO RANGE EST. [facility] Urine protein/creatinine mas s ratioOrdered By: Radha Schulz on 02-22-2024 Protein/Creatinine (U) [Mass ratio] 62 mg/g CRE 0-200 [facility] Basophil percentageOrdered B y: Dr. Schulz on 02-20-2023 Chloride [Moles/Vol] 106 mmol/L 98-107 [facility] Cholesterol [Mass/Vol] 200 mg/dL <200 [facility] Comment on above: <200 mg/dL Desirable 200-240 mg/dL Borderline >240 mg/dL High Risk Glucose [Mass/Vol] 96 mg/dL 74-106 [facility] Potassium [Moles/Vol] 4.6 mmol/L 3.5-5.1 [facility] Sodium [Moles/Vol] 138 mmol/L 136-145 [facility] Triglyceride [Mass/Vol] 64 mg/dL <199 [facility] Comment on above: The drugs N-Acetylcy steine and Metamizole may falsely depress this assay.Serum Triglycerides Reference Interval Normal <150 mg/dL Borderline high 150 - 199 mg/dL High 200 - 499 mg/dL Very High > or = 500 mg/dL Laboratory - Chemistry and C hemistry - challengeOrdered By: Dr. Schulz on 02-20-2023 CO2 [Moles/Vol] 26.0 mmol/L 21.0-32.0 [facility] Urea nitrogen/Creatinine [Mass ratio] 18.5 mg/mg 10-20 [facility] No Panel InformationOrdered By: Dr. Schulz on 02-20-2023 Estimated GFR (MDRD) Amer 61 mL/min >60 [facility] Comment on above: GFR Calc Estimated GFR (MDRD) Non-Af Amer 50 mL/min >60 [facility] Comment on above: Non- GFR Calc Urine Microalbumin/Creatinine Ratio TNP [facility] Comment on above: Test not performed Vitamin D 25-Hydroxy 21.8 ng/mL [facility] Comment on above: Vitamin D 25(OH) Sta tus Range Deficiency <20 ng/mL (50nmol/L) Insufficiency 20 - 30 ng/mL (50 - 75 nmol/L) Sufficiency 30 - 100 ng/mL (75 - 250 nmol/L) Toxicity >100 ng/mL (>250 nmol/L) Serum or plasma calcium ana urement (mass/volume)Ordered By: Dr. Schulz on 02-20-2023 Calcium [Mass/Vol] 8.9 mg/dL 8.5-10.1 [facility] Serum or plasma cholesterol in HDL measurement (mass/volume)Ordered By: Dr. Schulz on 02-20-2023 Cholesterol in HDL [Mass/Vol] 67 mg/dL >40 [facility] Comment on above: The drugs N-Acetylcy steine and Metamizole may falsely depress this assay. Reference Range HDL <40 mg/dL Low HDL Cholesterol HDL >or= 60 mg/dL High HDL Cholesterol Serum or plasma cholesterol in VLDL measurement (mass/volume)Ordered By: Dr. Schulz on 02-20-2023 Cholesterol in VLDL [Mass/Vol] 13 mg/dL 5-40 [facility] Serum or plasma creatinine m easurement (mass/volume)Ordered By: Dr. Schulz on 02-20-2023 Creatinine [Mass/Vol] 1.46 mg/dL 0.70-1.30 [facility] Comment on above: The validity of the calculated GFR & GFRAA in patients over 70 years has not been determined. Clinical correlation is essential. Serum or plasma low density lipoprotein (LDL) cholesterol measurement (mass/volume)Ordered By: Dr. Schulz on 02-20-2023 Cholesterol in LDL [Mass/Vol] 120 mg/dL 0-130 [facility] Serum or plasma urea nitroge n measurement (mass/volume)Ordered By: Dr. Schulz on 02-20-2023 Urea nitrogen [Mass/Vol] 27 mg/dL 7-18 [facility] Thin prep Papanicolaou smear with manual screeningOrdered By: Dr. Schulz on 02-20-2023 Thin prep Papanicolaou smear with manual screening 6 5-15 [facility] Thin prep Papanicolaou smear with manual screening < 5.0 mg/L NO RANGE EST. [facility] Urine creatinine measurement (mass/volume)Ordered By: Dr. Schulz on 02-20-2023 Creatinine (U) [Mass/Vol] 74.10 mg/dL NO RANGE EST. [facility] No Panel Informationon 08-22 Prostate Specific Antigen Screen 1.99 ng/mL 0.00-4.00 [facility] Work Phone: Comment on above: This test was perfor med using the TPSA assay method for [employer] chemistry system. Values obtained with differentassay methods cannot be used interchangably.When changing PSA assays in the course of monitoring apatient, additional sequential testing should be carriedout to confirm baseline values. Absolute lymphocyte counton 07-29-2022 Lymphocytes Auto (Unsp spec) [#/Vol] 1.75 10*3/uL 0.83-4.51 [facility] Work Phone: Basophil percentageon 2021 Basophils/100 WBC (Bld) 0.7 % 0-1 [facility] Work Phone: Chloride [Moles/Vol] 105 mmol/L 98-107 [facility] Work Phone: Eosinophils/100 WBC (Bld) 3.5 % 0-5 [facility] Work Phone: Glucose [Mass/Vol] 116 mg/dL 74-106 [facility] Work Phone: Comment on above: Fasting Glucose resu lt from 100 to 125 mg/dL suggests IMPAIRED HOMEOSTASIS per A.D.A. criteria. Neutrophils (Bld) [#/Vol] 2.9 10*3/uL 2.0-7.7 [facility] Work Phone: Neutrophils/100 WBC (Bld) 53.6 % 47-70 [facility] Work Phone: Potassium [Moles/Vol] 4.1 mmol/L 3.5-5.1 [facility] Work Phone: Sodium [Moles/Vol] 139 mmol/L 136-145 [facility] Work Phone: WBC (Bld) [#/Vol] 5.4 10*3/uL 4.4-11.0 [facility] Work Phone: Blood erythrocytes count (nu mber/volume)on 07-29-2022 RBC (Bld) [#/Vol] 4.10 10*6/uL 4.6-6.2 [facility] Work Phone: Blood hemoglobin measurement (mass/volume)on 07-29-2022 Hemoglobin (Bld) [Mass/Vol] 13.1 g/dL 13.0-16.5 [facility] Work Phone: Blood lymphocytes/100 leukoc yteson 07-29-2022 Lymphocytes/100 WBC (Bld) 32.2 % 19-41 [facility] Work Phone: Blood monocytes/100 leukocyt eson 07-29-2022 Monocytes/100 WBC (Bld) 9.8 % 0-10 [facility] Work Phone: Blood platelet mean volumeon 07-29-2022 Platelet mean volume (Bld) [Entitic vol] 10.4 fL 6.2-12.0 [facility] Work Phone: Determination of erythrocyte mean corpuscular volume (MCV)on 07-29-2022 MCV (RBC) [Entitic vol] 96.1 fL 80-94 [facility] Work Phone: Hematocrit Auto (Bld) [Volum e fraction]on 07-29-2022 Hematocrit (Bld) [Volume fraction] 39.4 % 40-54 [facility] Work Phone: Laboratory - Chemistry and C hemistry - challengeon 07-29-2022 CO2 [Moles/Vol] 26.0 mmol/L 21.0-32.0 [facility] Work Phone: Magnesium [Mass/Vol] 2.0 mg/dL 1.6-2.6 [facility] Work Phone: Urea nitrogen/Creatinine [Mass ratio] 20.7 mg/mg 10-20 [facility] Work Phone: Laboratory - Hematology and Cell countson 07-29-2022 Erythrocyte distribution width (RBC) [Entitic vol] 45.9 fL 35.1-43.9 [facility] Work Phone: Erythrocyte distribution width (RBC) [Ratio] 12.9 % 11.6-14.6 [facility] Work Phone: Immature granulocytes/100 WBC (Bld) 0.200 % 0.0-0.9 [facility] Work Phone: Comment on above: IG% - Immature Granu locytes (promyelocytes, myelocytes and metamyelocytes) > 1% indicates that a LEFT SHIFT is Present. MCH (RBC) [Entitic mass] 32.0 pg 27.0-32.0 [facility] Work Phone: Nucleated RBC/100 WBC (Bld) [Ratio] 0 % 0-5 [facility] Work Phone: MCHC Auto (RBC) [Mass/Vol]on 07-29-2022 MCHC (RBC) [Mass/Vol] 33.2 g/dL 32-36 [facility] Work Phone: No Panel Informationon 07-29 Estimated Creatinine Clearance Calc 40.80 ml/min [facility] Work Phone: Estimated GFR (MDRD) Amer 53 mL/min >60 [facility] Work Phone: Comment on above: GFR Calc Estimated GFR (MDRD) Non-Af Amer 44 mL/min >60 [facility] Work Phone: Comment on above: Non- GFR Calc Thyroid Stimulating Hormone (TSH) 1.68 uIU/mL 0.358-3.74 [facility] Work Phone: Platelets bldon 07-29-2022 Platelets (Bld) [#/Vol] 173 10*3/uL 150-450 [facility] Work Phone: Serum or plasma calcium ana urement (mass/volume)on 07-29-2022 Calcium [Mass/Vol] 9.0 mg/dL 8.5-10.1 [facility] Work Phone: Serum or plasma creatinine m easurement (mass/volume)on 07-29-2022 Creatinine [Mass/Vol] 1.64 mg/dL 0.70-1.30 [facility] Work Phone: Comment on above: The validity of the calculated GFR & GFRAA in patients over 70 years has not been determined. Clinical correlation is essential. Serum or plasma urea nitroge n measurement (mass/volume)on 07-29-2022 Urea nitrogen [Mass/Vol] 34 mg/dL 7-18 [facility] Work Phone: Thin prep Papanicolaou smear with manual screeningon 07-29-2022 Thin prep Papanicolaou smear with manual screening 8 5-15 [facility] Work Phone: CNCOon 01-28-2021 CNCO Letter Text Normal [facility] CNPNon 01-28-2021 CNPN Telephone (SPPRAD) ---- LIA MEDEL ( ) 1950 Date Time Provider Department 01/28/21 YASMINE MANZANARES ([facility])SPPRAD During your visit today, we recorded the following information about you: Yasmine Dutta APRN.[employer] 01/28/2021 2:02 PM Signed Recall colonoscopy (2nd [...] Encounter Status:Closed by YASMINE MANZANARES on 01/28/21 [facility] 01-23-2021 CNPN Telephone (SPPRAD) ---- LIA MEDEL ( ) 1950 M Date Time Provider Department 01/23/21 YASMINE MANZANARES ([employer])SPPRAD During your visit today, we recorded the following information about you: Yasmine Dutta APRN.[facility] 01/23/2021 4:20 PM Signed Recall colonoscopy (1st [...] Encounter Status:Closed by YASMINE MANZANARES on 01/23/21 [facility] Vital Signs Date Time Vital Sign Value Performing Clinician Arron hall 2025 14:47-0400 Body height 177.[address] Radha Schulz MD Work Phone: [facility] 2025 14:47-0400 Body mass index (BMI) [Ratio] 25.1 kg/m2 Dr. Radha Schulz MD Work Phone: [facility] 2025 14:47-0400 Body temperature 97.9 [degF] Dr. Radha Schulz MD Work Phone: [facility] 2025 14:47-0400 Body weight 79.[address] Radha Schulz MD Work Phone: [facility] 2025 14:47-0400 Diastolic blood pressure 68 mm[Hg] Dr. Radha Schulz MD Work Phone: [facility] 2025 14:47-0400 Heart rate 93 /min Dr. Radha Schulz MD Work Phone: [facility] 2025 14:47-0400 Respiratory rate 16 /min Dr. Radha Schulz MD Work Phone: [facility] 2025 14:47-0400 SaO2% (BldA) [Mass fraction] 99 % Dr. Radha Schulz MD Work Phone: [facility] 2025 14:47-0400 Systolic blood pressure 155 mm[Hg] Dr. Radha Schulz MD Work Phone: [facility] 11-29-2024 10:57-0500 Body mass index (BMI) [Ratio] 26.4 kg/m2 Dr. Radha Schulz MD Work Phone: [facility] 11-29-2024 10:57-0500 Body temperature 98 [degF] Dr. Radha Schulz MD Work Phone: [facility] 11-29-2024 10:57-0500 Body weight 83.[address] Radha Schulz MD Work Phone: [facility] 11-29-2024 10:57-0500 Diastolic blood pressure 80 mm[Hg] Dr. Radha Schuzl MD Work Phone: [facility] 11-29-2024 10:57-0500 Heart rate 58 /min Dr. Radha Schulz MD Work Phone: [facility] 11-29-2024 10:57-0500 SaO2% (BldA) [Mass fraction] 98 % Dr. Radha Schulz MD Work Phone: [facility] 11-29-2024 10:57-0500 Systolic blood pressure 120 mm[Hg] Dr. Radha Schulz MD Work Phone: [facility] 07-29-2022 06:29-0400 Diastolic blood pressure 64 mm[Hg] [facility] Work Phone: 07-29-2022 06:29-0400 Heart rate 69 /min [facility] Work Phone: 07-29-2022 06:29-0400 Respiratory rate 19 /min [facility] Work Phone: 07-29-2022 06:29-0400 SaO2% (BldA) [Mass fraction] 98 % [facility] Work Phone: 07-29-2022 06:29-0400 Systolic blood pressure 127 mm[Hg] [facility] Work Phone: 07-29-2022 05:39-0400 Body height 177.8 cm [facility] Work Phone: 07-29-2022 05:39-0400 Body mass index (BMI) [Ratio] 25.9 kg/m2 [facility] Work Phone: 07-29-2022 05:39-0400 Body temperature 98.1 [degF] [facility] Work Phone: 07-29-2022 05:39-0400 Body weight 82.2 kg [facility] Work Phone: Encounters Encounter Date Encounter Type Care Provider Facility Start: 05-24-2025 End: 05-24-[address] Radha Schulz MD Work Phone: -Laboratory [facility] Start: 05-24-2025 End: 05-24-[address] Luis Angel Roque MD -Laboratory [facility] Start: 05-24-2025 End: 05-24-2025 ambulatory Luis Angel Roque Facility:[facility] Start: 2025 End: 2025 Emergency department patient visit Dr. Radha Schulz MD Work Phone: -Emergency Department Work Phone: Start: 01-02-2025 End: 01-02-[address] Kamran Zambrano MD -Radiology, [place] Work Phone: Start: 01-02-2025 End: 01-02-2025 ambulatory Kamran Zambrano Facility:[facility] Start: 11-29-2024 End: 11-29-2024 Patient encounter procedure Alex HENDRICKSON -[facility] Work Phone: Start: 11-29-2024 End: 11-29-2024 ambulatory Alex HENDRICKSON Facility:[facility] Start: 02-22-2024 End: 02-22-[address] [facility] Work Phone: Start: 02-22-2024 End: 02-22-2024 Patient encounter procedure [facility] Start: 02-20-2023 End: 02-20-[address] [facility] Work Phone: Start: 02-20-2023 End: 02-20-2023 Patient encounter procedure [facility] Start: 08-22-2022 End: 08-22-[address] [facility] Work Phone: Start: 08-22-2022 End: 08-22-[address] [facility] Start: 07-29-2022 End: 07-29-2022 Emergency department patient visit [facility] Procedures Date Procedure Procedure Detail Performing [...] Date Care Activity Detail Author Start: 2025 [facility] Patient Education [facility] Work Phone: Patient referral [facility] Work Phone: Immunizations Immunization Date Immunization Notes Care Provider Fa cility 11-29-2024 tetanus toxoid, redu niyah diphtheria toxoid, and acellular pertussis vaccine, adsorbed Dr. Radha Schulz MD Work Phone: [facility] 08-19-2021 Influenza virus vaccine [facility] 01-14-2021 Covid ([employer]mid [employer]mid) [facility] Payers Date Payer Category Payer Private Health Insurance [id number] 2024 Medicare [id number] 2024 Self-pay [id number] Medicare MEDICARE PART A B [id number] Private Health Insurance [id number] Unknown COMMERCIAL OTHER [id number] Unknown [employer] [place] [employer] [place] [id number] Unknown AARP MCR ADV [id number] Unknown [id number] Unknown [id number] Unknown [id number] Unknown [id number] Social History Date Type Detail Facility [facility] Start: 07-07-2019 Non-smoker [facility] Start: 1950 Sex Assigned At Male [facility] Start[facility] Start: 2025 Sex Male (finding) [facility] Mental Status Date Assessment Result Facility 2025 Cognitive function Level Of Cons ciousness Awake;Alert;Appropriate;Follow s Commands [facility] Work Phone: 07-29-2022 Cognitive function Voice/Name [facility] Work Phone: Discharge summary 2025 Note Date & Type Note Facility [address] [facility] Discharge summary 2025 Note Date & Type Note Facility 2025 Discharge summary Note Date/Time 2025 3:29pm [facility] Medical Records Department [address] [address] Emergency Department Summary 02/03/25 MR#: [id number] Acct: [id number] Name: LIA MEDEL Rep #:[id number] : [id number] 75 From: Bartolome Kyle MD [...] occurred. 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 He denies abdominal pain, nausea, vomiting or diarrhea. Nuys black or maroon-colored stool. He denies urologic symptoms. He denies paresthesia, anesthesia or motor weakness. Prior similar symptoms: Yes Recent Illness/Hospitalization: No PFSH [facility] Medical History Cat bite Hypokalemia HTN (hypertension) [...] Care Provider] - 1 Week Print Language: Romanian Disposition Disposition: Home, Self Care What to do if you have Problems For any increased pain, shortness of breath, bleeding, nausea or vomiting, chestpain, or any unexpected problems, contact your Primary Care Provider. Call [facility] ([phone]) or report to the closest Emergency Room. Call 911 if necessary. 02/03/25 1528 <Electronically signed by Bartolome Kyle MD> Cosigner Signature (if applicable): CC: Dr. Radha Schulz MD ~ Signed [facility] Work Phone: Evaluation note 11-29-2024 Note Date & Type Note Facility 11-29-2024 Evaluation note Diagnosis Onset Date Resolution Cat bite acute November 29, 2024 10:51am [facility] Work Phone: Evaluation note Note Date & Type Note Facility Evaluation note No assessment information availa ble [facility] Work Phone: Reason for referral (narrative) Note Date & Type Note Facility Reason for referral (narrative) No reason for referral information available [facility] Work Phone: Summary Purpose Family History No Family History Records Found Relationship Condition Age at Onset Recorded Date/T [place] mother Malignant neoplasm of colon Unknown father Coronary artery disease Unknown Advance Directives No Advanced Directives Records Found Advance Directive Response Recorded Date/ Time Living Will No July 29, 2022 5:57am Power of Security Intern No July 5:57am Advance Directive Response Recorded Date/ Time Living Will Yes 2025 2:51pm Do you have a Healthcare Power of Security Intern? Yes 2025 2:51pm Name of Medical Power of Security Intern [facility] 2025 2:51pm Chief Complaint and [...] BE BASED ON THE PRIMARY CLINICAL RECORDS. [facility]. provides no warranty or guarantee of the accuracy or completeness of information in this document.
[2025-10-12 06:14] LABS: Urine Bilirubin Dipstick 3 mg/dL (Negative)
[2025-10-12 06:18] LABS: Calcium Oxalate Crystals Ur 1+ /hpf (<or=2+); Red Blood Cells-Urine 0-5 SEEN /hpf (0-5); Squamous Epithelial Cells - UA 0-5 SEEN /hpf (0-5)
--- OUTSIDE RECORDS SUMMARY | 2025-10-12 06:30 | XMS RPT_ITS | CCD ---
Author Organization [facility] Care Team Providers Care Sander Machine Name Role Phone Jazz NGUYEN, Dr. Radha [...] Auto (Unsp spec) [#/Vol] 1.77 10*3/uL 0.83-4.51 [facility] Absolute neutrophil countOrd ered By: Luis Angel Roque on 05-24-2025 Neutrophils (Bld) [#/Vol] 3.2 10*3/uL 2.0-7.7 [facility] Anion gap in Serum or Plasma Ordered By: Luis Angel Roque on 05-24-2025 Anion gap [Moles/Vol] 10 mmol/L 5-15 [facility] Automated lymphocyte count a s percentage of total leukocytesOrdered By: Luis Angel Roque on 05-24-2025 Lymphocytes/100 WBC Auto (Unsp spec) 29.8 % 19-41 [facility] BUN/creatinine ratioOrdered By: Luis Angel Jude on 05-24-2025 Urea nitrogen/Creatinine [Mass ratio] 18.8 mg/mg 10-20 [facility] Basophil percentageOrdered B y: Luis Angel Roque on 05-24-2025 Basophils/100 WBC (Bld) 1.0 % 0-1 [facility] Bilirubin, totalOrdered By: Luis Angel Roque on 05-24-2025 Bilirubin [Mass/Vol] 0.73 mg/dL 0.00-1.30 [facility] CBC W/Diff, Automatedon Absolute Lymph 1.77 X10 3/uL Normal 0.83-4.51 [facility] Comment on above: Performed By: #### L 100.0100, L500.4050, L500.4100, L501.9910, L506.1001 #### [facility] [place], [address] Absolute Neut 3.2 X10 3/uL Normal 2.0-7.7 [facility] Comment on above: Performed By: #### L 100.0100, L500.4050, L500.4100, L501.9910, L506.1001 #### [facility] [address] [place], [address] Basophils/100 WBC (Bld) 1.0 % Normal 0-1 [facility] Comment on above: Performed By: #### L 100.0100, L500.4050, L500.4100, L501.9910, L506.1001 #### [facility] [address] [place], [address] Eosinophils/100 WBC (Bld) 5.4 % High 0-5 [facility] Comment on above: Performed By: #### L 100.0100, L500.4050, L500.4100, L501.9910, L506.1001 #### [facility] [address] [place], [address] Erythrocyte distribution width (RBC) [Ratio] 13.1 % Normal 11.6-14.6 [facility] Comment on above: Performed By: #### L 100.0100, L500.4050, L500.4100, L501.9910, L506.1001 #### [facility] [address] [place], [address] Hematocrit (Bld) [Volume fraction] 39.9 % Low 40-54 [facility] Comment on above: Performed By: #### L 100.0100, L500.4050, L500.4100, L501.9910, L506.1001 #### [facility] [address] [place], [address] Hemoglobin (Bld) [Mass/Vol] 12.9 g/dL Low 13.0-16.5 [facility] Comment on above: Performed By: #### L 100.0100, L500.4050, L500.4100, L501.9910, L506.1001 #### [facility] [address] [place], [address] IG% 0.300 Normal 0.0-0.9 [facility] Comment on above: Result Comment: IG% - Immature Granulocytes (promyelocytes, myelocytes and metamyelocytes) > 1% indicates that a LEFT SHIFT is Present. Performed By: #### L 100.0100, L500.4050, L500.4100, L501.9910, L506.1001 #### [facility] [address] [place], [address] Lymphocytes/100 WBC (Bld) 29.8 % Normal 19-41 [facility] Comment on above: Performed By: #### L 100.0100, L500.4050, L500.4100, L501.9910, L506.1001 #### [facility] [address] [place], [address] MCH (RBC) [Entitic mass] 30.9 pg Normal 27.0-32.0 [facility] Comment on above: Performed By: #### L 100.0100, L500.4050, L500.4100, L501.9910, L506.1001 #### [facility] [address] [place], [address] MCHC (RBC) [Mass/Vol] 32.3 g/dL Normal 32-36 [facility] Comment on above: Performed By: #### L 100.0100, L500.4050, L500.4100, L501.9910, L506.1001 #### [facility] [address] [place], [address] MCV (RBC) [Entitic vol] 95.5 fL High 80-94 [facility] Comment on above: Performed By: #### L 100.0100, L500.4050, L500.4100, L501.9910, L506.1001 #### [facility] [address] [place], [address] Monocytes/100 WBC (Bld) 10.3 % High 0-10 [facility] Comment on above: Performed By: #### L 100.0100, L500.4050, L500.4100, L501.9910, L506.1001 #### [facility] [address] [place], [address] Neutrophils/100 WBC (Bld) 53.2 % Normal 47-70 [facility] Comment on above: Performed By: #### L 100.0100, L500.4050, L500.4100, L501.9910, L506.1001 #### [facility] [address] [place], [address] Nucleated RBC (Bld) [#/Vol] 0 10*3/uL Normal 0-5 [facility] Comment on above: Performed By: #### L 100.0100, L500.4050, L500.4100, L501.9910, L506.1001 #### [facility] [address] [place], [address] Platelet mean volume (Bld) [Entitic vol] 11.6 fL Normal 6.2-12.0 [facility] Comment on above: Performed By: #### L 100.0100, L500.4050, L500.4100, L501.9910, L506.1001 #### [facility] [address] [place], [address] Platelets (Bld) [#/Vol] 165 10*3/uL Normal 150-450 [facility] Comment on above: Performed By: #### L 100.0100, L500.4050, L500.4100, L501.9910, L506.1001 #### [facility] [address] [place], [address] RBC (Bld) [#/Vol] 4.18 10*6/uL Low 4.6-6.2 [facility] Comment on above: Performed By: #### L 100.0100, L500.4050, L500.4100, L501.9910, L506.1001 #### [facility] [address] [place], [address] RDW SD 45.3 fl High 35.1-43.9 [facility] Comment on above: Performed By: #### L 100.0100, L500.4050, L500.4100, L501.9910, L506.1001 #### [facility] [address] [place], [address] WBC (Bld) [#/Vol] 5.9 10*3/uL Normal 4.4-11.0 [facility] Comment on above: Performed By: #### L 100.0100, L500.4050, L500.4100, L501.9910, L506.1001 #### [facility] [address] [place], [address] Calculated very low density lipoprotein (VLDL) cholesterol measurementOrdered By: Luis Angel Roque on 05-24-2025 Calculated very low density lipoprotein (VLDL) cholesterol measurement 13 mg/dL 5-40 [facility] Carbon dioxide, total [Moles /volume] in Central venous bloodOrdered By: Luis Angel Roque on 05-24-2025 CO2 [Moles/Vol] 25.1 mmol/L 21.0-32.0 [facility] Chloride assayOrdered By: Edelmira Roque on 05-24-2025 Chloride [Moles/Vol] 103 mmol/L 98-108 [facility] Comprehensive Metabolic Prof ilon 05-24-2025 Albumin [Mass/Vol] 4.2 g/dL Normal 3.4-4.8 [facility] Comment on above: Performed By: #### L 100.0100, L500.4050, L500.4100, L501.9910, L506.1001 #### [facility] [address] [place], [address] Albumin/Globulin [Mass ratio] 1.7 {ratio} Normal 0.9-2.4 [facility] Comment on above: Performed By: #### L 100.0100, L500.4050, L500.4100, L501.9910, L506.1001 #### [facility] [address] [place], [address] ALK PHOS 61 U/L Normal 40-129 [facility] Comment on above: Performed By: #### L 100.0100, L500.4050, L500.4100, L501.9910, L506.1001 #### [facility] [address] [place], [address] ALT [Catalytic activity/Vol] 12 U/L Normal <=46 [facility] Comment on above: Performed By: #### L 100.0100, L500.4050, L500.4100, L501.9910, L506.1001 #### [facility] [address] [place], [address] AST [Catalytic activity/Vol] 19 U/L Normal <=37 [facility] Comment on above: Performed By: #### L 100.0100, L500.4050, L500.4100, L501.9910, L506.1001 #### [facility] [address] [place], [address] Bilirubin [Mass/Vol] 0.73 mg/dL Normal 0.00-1.30 [facility] Comment on above: Performed By: #### L 100.0100, L500.4050, L500.4100, L501.9910, L506.1001 #### [facility] [address] [place], [address] BUN/CRE 18.8 RATIO Normal 10-20 [facility] Comment on above: Performed By: #### L 100.0100, L500.4050, L500.4100, L501.9910, L506.1001 #### [facility] [address] [place], [address] Calcium [Mass/Vol] 9.2 mg/dL Normal 7.6-11.0 [facility] Comment on above: Performed By: #### L 100.0100, L500.4050, L500.4100, L501.9910, L506.1001 #### [facility] [address] [place], [address] Chloride [Moles/Vol] 103 mmol/L Normal 98-108 [facility] Comment on above: Performed By: #### L 100.0100, L500.4050, L500.4100, L501.9910, L506.1001 #### [facility] [address] [place], [address] CO2 [Moles/Vol] 25.1 mmol/L Normal 21.0-32.0 [facility] Comment on above: Performed By: #### L 100.0100, L500.4050, L500.4100, L501.9910, L506.1001 #### [facility] [address] [place], [address] Creatinine [Mass/Vol] 1.72 mg/dL High 0.70-1.20 [facility] Comment on above: Performed By: #### L 100.0100, L500.4050, L500.4100, L501.9910, L506.1001 #### [facility] [address] [place], [address] GAP 10 Normal 5-15 [facility] Comment on above: Performed By: #### L 100.0100, L500.4050, L500.4100, L501.9910, L506.1001 #### [facility] [address] [place], [address] GFR/1.73 sq M.predicted among non-blacks MDRD (S/P/Bld) [Vol rate/Area] 40 mL/min/{1.73_m2} Low >60 [facility] Comment on above: Result Comment: mL/m in/1.73m2 CKD-EPI Creatinine Equation (2020) Performed By: #### L 100.0100, L500.4050, L500.4100, L501.9910, L506.1001 #### [facility] [address] [place], [address] Globulin (S) [Mass/Vol] 2.5 g/dL Normal 2.2-4.2 [facility] Comment on above: Performed By: #### L 100.0100, L500.4050, L500.4100, L501.9910, L506.1001 #### [facility] [address] [place], [address] Glucose [Mass/Vol] 93 mg/dL Normal 70-99 [facility] Comment on above: Performed By: #### L 100.0100, L500.4050, L500.4100, L501.9910, L506.1001 #### [facility] [address] [place], [address] Potassium [Moles/Vol] 5.0 mmol/L Normal 3.3-5.1 [facility] Comment on above: Performed By: #### L 100.0100, L500.4050, L500.4100, L501.9910, L506.1001 #### [facility] [address] [place], [address] Sodium [Moles/Vol] 138 mmol/L Normal 133-145 [facility] Comment on above: Performed By: #### L 100.0100, L500.4050, L500.4100, L501.9910, L506.1001 #### [facility] [address] [place], [address] T PROT 6.7 g/dL Normal 5.9-8.4 [facility] Comment on above: Performed By: #### L 100.0100, L500.4050, L500.4100, L501.9910, L506.1001 #### [facility] [address] [place], [address] Urea nitrogen [Mass/Vol] 32 mg/dL High 4-19 [facility] Comment on above: Performed By: #### L 100.0100, L500.4050, L500.4100, L501.9910, L506.1001 #### [facility] [address] [place], [address] Eosinophil percentageOrdered By: Luis Angel Roque on 05-24-2025 Eosinophils/100 WBC (Bld) 5.4 % High 0-5 [facility] Erythrocyte distribution wid th ratioOrdered By: Luis Angel Roque on 05-24-2025 Erythrocyte distribution width (RBC) [Ratio] 13.1 % 11.6-14.6 [facility] Erythrocyte distribution wid th standard deviationOrdered By: Luis Angel Roque on 05-24-2025 Erythrocyte distribution width (RBC) [Ratio] 45.3 fl High 35.1-43.9 [facility] Glomerular filtration rate ( GFR) estimation/1.73 sq m using serum, plasma, or whole bOrdered By: Luis Angel Roque on 05-24-2025 GFR/1.73 sq M.predicted among non-blacks MDRD (S/P/Bld) [Vol rate/Area] 40 mL/min/{1.73_m2} Low >60 [facility] Comment on above: mL/min/1.73m2 CKD-EP I Creatinine Equation (2020) Hematocrit Auto (Bld) [Volum e fraction]Ordered By: Luis Angel Roque on 05-24-2025 Hematocrit (Bld) [Volume fraction] 39.9 % Low 40-54 [facility] Hemoglobin measurementOrdere d By: Luis Angel Roque on 05-24-2025 Hemoglobin (Bld) [Mass/Vol] 12.9 g/dL Low 13.0-16.5 [facility] Immature granulocytes/100 WB C Auto (Bld)Ordered By: Luis Angel Roque on 05-24-2025 Immature granulocytes/100 WBC (Bld) 0.300 % 0.0-0.9 [facility] Comment on above: IG% - Immature Granu locytes (promyelocytes, myelocytes and metamyelocytes) > 1% indicates that a LEFT SHIFT is Present. LDL calc ser/plasOrdered By: Luis Angel Roque on 05-24-2025 Cholesterol in LDL [Mass/Vol] 119 mg/dL [facility] Comment on above: Hzekxwvvzg=112-236 m g/dL & Higher Lgka=522 mg/dL or greater Laboratory - Chemistry and C hemistry - challengeOrdered By: Luis Angel Roque on 05-24-2025 AST [Catalytic activity/Vol] 19 U/L <38 [facility] Lipid Profileon 05-24-2025 CHOL:HDL 3.29 Normal [facility] Comment on above: Performed By: #### L 100.0100, L500.4050, L500.4100, L501.9910, L506.1001 #### [facility] [address] [place], [address] Cholesterol [Mass/Vol] 189 mg/dL Normal <=200 [facility] Comment on above: Result Comment: Chol esterol level, Desirable <200 mg/dL Borderline high cholesterol 200-239 mg/dL High cholesterol >=240 mg/dL Recommendations of the NCEP Adult Treatment Panel for the following risk-cutoff thresholds for the [place] population. Performed By: #### L 100.0100, L500.4050, L500.4100, L501.9910, L506.1001 #### [facility] [address] [place], [address] Cholesterol in HDL [Mass/Vol] 58 mg/dL Normal [facility] Comment on above: Result Comment: Mary onal Cholesterol Education Program (NCEP) guidelines: <40 mg/dL: Low HDL-cholesterol (major risk factor for CHD) >= 60 mg/dL: High HDL-cholesterol (negative risk factor for CHD) HDL-cholesterol is affected by a number of factors, e.g. smoking, exercise, hormones, sex and age. Performed By: #### L 100.0100, L500.4050, L500.4100, L501.9910, L506.1001 #### [facility] [address] [place], [address] Cholesterol in LDL [Mass/Vol] 119 mg/dL Normal [facility] Comment on above: Result Comment: Bord slbeza=914-265 mg/dL Higher Qclo=480 mg/dL or greater Performed By: #### L 100.0100, L500.4050, L500.4100, L501.9910, L506.1001 #### [facility] [address] [place], [address] Cholesterol in VLDL [Mass/Vol] 13 mg/dL Normal 5-40 [facility] Comment on above: Performed By: #### L 100.0100, L500.4050, L500.4100, L501.9910, L506.1001 #### [facility] [address] [place], [address] Triglyceride [Mass/Vol] 64 mg/dL Normal [facility] Comment on above: Result Comment: The drugs N-Acetylcysteine and Metamizole may falsely depress this assay. Normal range: <150 mg/dL Borderline High: 150-199 mg/dL High: 200-499 mg/dL Very High: >500 mg/dL Performed By: #### L 100.0100, L500.4050, L500.4100, L501.9910, L506.1001 #### [facility] [address] [place], [place], [address] MCV (mean corpuscular volume ) determinationOrdered By: Luis Angel Roque on 05-24-2025 MCV (RBC) [Entitic vol] 95.5 fL High 80-94 [facility] Mean corpuscular hemoglobin (MCH) determinationOrdered By: [facility] on 05-24-2025 MCH (RBC) [Entitic mass] 30.9 pg 27.0-32.0 [facility] Mean corpuscular hemoglobin concentration (MCHC) determinationOrdered By: [facility] on 05-24-2025 MCHC (RBC) [Mass/Vol] 32.3 g/dL 32-36 [facility] Mean platelet volume determi nationOrdered By: [facility] on 05-24-2025 Platelet mean volume (Bld) [Entitic vol] 11.6 fL 6.2-12.0 [facility] Monocyte percentageOrdered B y: Luis Angel Roque on 05-24-2025 Monocytes/100 WBC (Bld) 10.3 % High 0-10 [facility] Neutrophil percentageOrdered By: [facility] on 05-24-2025 Neutrophils/100 WBC (Bld) 53.2 % 47-70 [facility] Nucleated red blood cell per centageOrdered By: [facility] on 05-24-2025 Nucleated RBC/100 WBC (Bld) [Ratio] 0 % 0-5 [facility] PSA,Total - Annual Screenon 05-24-2025 PSA,TOT SCREEN 1.35 ng/mL Normal 0.02-4.00 [facility] Comment on above: Result Comment: This test [...] L 100.0100, L500.4050, L500.4100, L501.9910, L506.1001 #### [facility] [address] [place], [address] Platelet countOrdered By: Edelmira Roque on 05-24-2025 Platelets (Bld) [#/Vol] 165 10*3/uL 150-450 [facility] Potassium measurement (mass/ volume)Ordered By: Luis Angel Roque on 05-24-2025 Potassium (Unsp spec) [Mass/Vol] 5.0 mmol/L 3.3-5.1 [facility] RBC Auto (Bld) [#/Vol]Ordere d By: Luis Angel Roque on 05-24-2025 RBC (Bld) [#/Vol] 4.18 10*6/uL Low 4.6-6.2 [facility] Screening total cholesterol/ high density lipoprotein (HDL) cholesterol ratioOrdered By: Luis Angel Roque on 05-24-2025 Cholesterol.total/Choles terol in HDL [Mass ratio] 3.29 {ratio} [facility] Serum creatinine measurement (mass/volume)Ordered By: Luis Angel Roque on 05-24-2025 Creatinine [Mass/Vol] 1.72 mg/dL High 0.70-1.20 [facility] Serum globulin measurementOr dered By: Luis Angel Roque on 05-24-2025 Globulin (S) [Mass/Vol] 2.5 g/dL 2.2-4.2 [facility] Serum glucose measurement (m ass/volume)Ordered By: Luis Angel Roque on 05-24-2025 Glucose [Mass/Vol] 93 mg/dL 70-99 [facility] Serum or plasma alanine sabillon otransferase (ALT) measurementOrdered By: Luis Angel Roque on 05-24-2025 ALT [Catalytic activity/Vol] 12 U/L <47 [facility] Serum or plasma albumin ana urement (mass/volume)Ordered By: Luis Angel Roque on 05-24-2025 Albumin [Mass/Vol] 4.2 g/dL 3.4-4.8 [facility] Serum or plasma albumin/glob ulin mass ratioOrdered By: Luis Angel Roque on 05-24-2025 Albumin/Globulin [Mass ratio] 1.7 {ratio} 0.9-2.4 [facility] Serum or plasma alkaline sonu sphatase measurementOrdered By: Luis Angel Roque on 05-24-2025 ALP [Catalytic activity/Vol] 61 U/L 40-129 [facility] Serum or plasma calcium ana urement (mass/volume)Ordered By: Luis Angel Roque on 05-24-2025 Calcium [Mass/Vol] 9.2 mg/dL 7.6-11.0 [facility] Serum or plasma cholesterol in HDL measurement (mass/volume)Ordered By: Luis Angel Roque on 05-24-2025 Cholesterol in HDL [Mass/Vol] 58 mg/dL >40 [facility] Comment on above: National Cholesterol Education Program (NCEP) guidelines:<40 mg/dL: Low HDL-cholesterol (major risk factor for CHD)>= 60 mg/dL: High HDL-cholesterol (negative risk factor for CHD)HDL-cholesterol is affected by a number of factors, e.g. smoking, exercise, hormones, sex and age. Serum or plasma cholesterol measurement (mass/volume)Ordered By: Luis Angel Roque on 05-24-2025 Cholesterol [Mass/Vol] 189 mg/dL <201 [facility] Comment on above: Cholesterol level, D esirable <200 mg/dLBorderline high cholesterol 200-239 mg/dLHigh cholesterol >=240 mg/dLRecommendations of the NCEP Adult Treatment Panel for the following risk-cutoff thresholds for the [place] population. Serum or plasma urea nitroge n measurement (mass/volume)Ordered By: Luis Angel Roque on 05-24-2025 Urea nitrogen [Mass/Vol] 32 mg/dL High 4-19 [facility] Sodium levelOrdered By: Masoud Roque on 05-24-2025 Sodium [Moles/Vol] 138 mmol/L 133-145 [facility] Total proteinOrdered By: Iesha Roque on 05-24-2025 Protein [Mass/Vol] 6.7 g/dL 5.9-8.4 [facility] Triglycerides measurementOrd ered By: Luis Angel Roque on 05-24-2025 Triglyceride [Mass/Vol] 64 mg/dL <199 [facility] Comment on above: The drugs N-Acetylcy steine and Metamizole may falsely depress this assay. Normal range: <150 mg/dLBorderline High: 150-199 mg/dLHigh: 200-499 mg/dLVery High: >500 mg/dL Vitamin D,25 Hydroxyon 05-24 Vitamin D 25-OH 26.1 ng/mL Low 30-100 [facility] Comment on above: Result Comment: Minda min D Status Deficiency: <20 ng/mL (50nmol/L) Insufficiency: 20-30 ng/mL (50-75 nmol/L) Sufficiency: 30-100 ng/mL (75-250 nmol/L) Toxicity: >100 ng/mL (>250 nmol/L) Performed By: #### L 100.0100, L500.4050, L500.4100, L501.9910, L506.1001 #### [facility] [address] 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 He denies abdominal pain, nausea, vomiting or diarrhea. Nuys black or maroon-colored stool. He denies urologic symptoms. He denies paresthesia, anesthesia or motor weakness. Prior similar symptoms: Yes Recent [facility] Medical History Cat bite Hypokalemia HTN (hypertension) [...] regular r (more content not included)... Normal [facility] Wrist min 3 Viewson 01-02-20 Wrist min 3 Views [facility] Imaging Services [address] [place], [place] [address] Wrist min 3 Views MR#: [id number] Acct: [id number] Name: LIA MEDEL Rep #: [id number] : 1950 M 74 From: Ethan Leonard i, DO PCP: Dr. Radha Schulz MD Status: REG CLI Study: Wrist min 3 Views Date of Exam: 01/02/25 Exam# [id number] Ordering Dr: Kamran Zambrano MD PROCEDURE: Left [...] Radha Schulz MD; Dr. 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 [facility] Medical History (Updated 11/29/24 @ 12:22 by [...] office today for initial evaluation at the [facility] clinic status post RIF kitten bite last evening (stray which patient recovered from outside yesterday). PMH NC. Unknown last Td. Trace to absent localized discomfort at puncture wound site x 1. No complaints of fever, chills, sweats, lightheadedness/diz ziness, nausea/vomiting, or erythema, warmth, swelling at the puncture wound site. No [id number] products taken to assist. No other associated [...] IM Left Deltoid 0.5 mL CX4HL 09/24/26 [id number] [employer] VIS Given Date VIS Provided VIS Publication Date 11/29/24 Single Vaccine 21 Eligibility Eligibility Date Funding Source Not Applicable Coding Level of Care Code Off vis,new,level 3 Diagnoses Cat bite W55.01XA Assessment and Plan Assessment and Plan (1) Cat bite: Status: Acute Plan: Twice daily wound care as instructed today. Tdap updated today. Augmentin as prescribed today. Dog bite form for [facility] was followed up by nursing staff and patient and faxed to [facility] for further evaluation. [facility]-up with the [facility] on an as-needed basis only, reporting to ED should symptoms only worsen or any other concerns develop. Patient states acknowledging understanding all the above. This note was generated with [employer] dictation software. It may contain incorrect words, spelling, and punctuation that were not noted in checking the note before signing. Orders: Orders Tdap Immunization Today Z23 - Encounter for immunization Medications: New amoxicillin-pot clavulanate 875-125 mg 1 TAB PO BID 14 tabs 0RF (more content not included)... Normal [facility] Basophil percentageOrdered B y: Radha Jazz on 02-22-2024 Chloride [Moles/Vol] 106 mmol/L 98-107 [facility] Cholesterol [Mass/Vol] 188 mg/dL <200 [facility] Comment on above: <200 mg/dL Desirable 200-240 mg/dL Borderline >240 mg/dL High Risk Glucose [Mass/Vol] 106 mg/dL 74-106 [facility] Comment on above: Fasting Glucose resu lt from 100 to 125 mg/dL suggests IMPAIRED HOMEOSTASIS per A.D.A. criteria. Potassium [Moles/Vol] 4.8 mmol/L 3.5-5.1 [facility] Sodium [Moles/Vol] 140 mmol/L 136-145 [facility] Triglyceride [Mass/Vol] 95 mg/dL <199 [facility] Comment on above: The drugs N-Acetylcy steine and Metamizole may falsely depress this assay.Serum Triglycerides Reference Interval Normal <150 mg/dL Borderline high 150 - 199 mg/dL High 200 - 499 mg/dL Very High > or = 500 mg/dL Laboratory - Chemistry and C hemistry - challengeOrdered By: Radha Schulz on 02-22-2024 Cholesterol in HDL [Mass/Vol] 62 mg/dL >40 [facility] Comment on above: The drugs N-Acetylcy steine and Metamizole may falsely depress this assay. Reference Range HDL <40 mg/dL Low HDL Cholesterol HDL >or= 60 mg/dL High HDL Cholesterol Cholesterol in LDL [Mass/Vol] 107 mg/dL 0-130 [facility] CO2 [Moles/Vol] 28.0 mmol/L 21.0-32.0 [facility] Urea nitrogen/Creatinine [Mass ratio] 20.7 mg/mg 10-20 [facility] No Panel InformationOrdered By: Radha Schulz on 02-22-2024 Estimated GFR (MDRD) Amer 46 mL/min >60 [facility] Comment on above: GFR Calc Estimated GFR (MDRD) Non-Af Amer 38 mL/min >60 [facility] Comment on above: Non- GFR Calc VLDL Cholesterol 19 mg/dL 5-40 [facility] Serum or plasma calcium ana urement (mass/volume)Ordered By: Radha Schulz on 02-22-2024 Calcium [Mass/Vol] 9.0 mg/dL 8.5-10.1 [facility] Serum or plasma creatinine m easurement (mass/volume)Ordered By: Radha Schulz on 02-22-2024 Creatinine [Mass/Vol] 1.84 mg/dL 0.70-1.30 [facility] Comment on above: The validity of the calculated GFR & GFRAA in patients over 70 years has not been determined. Clinical correlation is essential. Serum or plasma urea nitroge n measurement (mass/volume)Ordered By: Rahda Schulz on 02-22-2024 Urea nitrogen [Mass/Vol] 38 mg/dL 7-18 [facility] Thin prep Papanicolaou smear with manual screeningOrdered By: Radha Schulz on 02-22-2024 Protein (U) [Mass/Vol] 10.2 mg/dL 0.0-11.8 [facility] Thin prep Papanicolaou smear with manual screening 6 5-15 [facility] Urine creatinine measurement (mass/volume)Ordered By: Radha Schulz on 02-22-2024 Creatinine (U) [Mass/Vol] 164.00 mg/dL NO RANGE EST. [facility] Urine protein/creatinine mas s ratioOrdered By: Radha Schulz on 02-22-2024 Protein/Creatinine (U) [Mass ratio] 62 mg/g CRE 0-200 [facility] Basophil percentageOrdered B y: Dr. Schulz on 02-20-2023 Chloride [Moles/Vol] 106 mmol/L 98-107 [facility] Cholesterol [Mass/Vol] 200 mg/dL <200 [facility] Comment on above: <200 mg/dL Desirable 200-240 mg/dL Borderline >240 mg/dL High Risk Glucose [Mass/Vol] 96 mg/dL 74-106 [facility] Potassium [Moles/Vol] 4.6 mmol/L 3.5-5.1 [facility] Sodium [Moles/Vol] 138 mmol/L 136-145 [facility] Triglyceride [Mass/Vol] 64 mg/dL <199 [facility] Comment on above: The drugs N-Acetylcy steine and Metamizole may falsely depress this assay.Serum Triglycerides Reference Interval Normal <150 mg/dL Borderline high 150 - 199 mg/dL High 200 - 499 mg/dL Very High > or = 500 mg/dL Laboratory - Chemistry and C hemistry - challengeOrdered By: Dr. Schulz on 02-20-2023 CO2 [Moles/Vol] 26.0 mmol/L 21.0-32.0 [facility] Urea nitrogen/Creatinine [Mass ratio] 18.5 mg/mg 10-20 [facility] No Panel InformationOrdered By: Dr. Schulz on 02-20-2023 Estimated GFR (MDRD) Amer 61 mL/min >60 [facility] Comment on above: GFR Calc Estimated GFR (MDRD) Non-Af Amer 50 mL/min >60 [facility] Comment on above: Non- GFR Calc Urine Microalbumin/Creatinine Ratio TNP [facility] Comment on above: Test not performed Vitamin D 25-Hydroxy 21.8 ng/mL [facility] Comment on above: Vitamin D 25(OH) Sta tus Range Deficiency <20 ng/mL (50nmol/L) Insufficiency 20 - 30 ng/mL (50 - 75 nmol/L) Sufficiency 30 - 100 ng/mL (75 - 250 nmol/L) Toxicity >100 ng/mL (>250 nmol/L) Serum or plasma calcium ana urement (mass/volume)Ordered By: Dr. Schulz on 02-20-2023 Calcium [Mass/Vol] 8.9 mg/dL 8.5-10.1 [facility] Serum or plasma cholesterol in HDL measurement (mass/volume)Ordered By: Dr. Schulz on 02-20-2023 Cholesterol in HDL [Mass/Vol] 67 mg/dL >40 [facility] Comment on above: The drugs N-Acetylcy steine and Metamizole may falsely depress this assay. Reference Range HDL <40 mg/dL Low HDL Cholesterol HDL >or= 60 mg/dL High HDL Cholesterol Serum or plasma cholesterol in VLDL measurement (mass/volume)Ordered By: Dr. Schulz on 02-20-2023 Cholesterol in VLDL [Mass/Vol] 13 mg/dL 5-40 [facility] Serum or plasma creatinine m easurement (mass/volume)Ordered By: Dr. Schulz on 02-20-2023 Creatinine [Mass/Vol] 1.46 mg/dL 0.70-1.30 [facility] Comment on above: The validity of the calculated GFR & GFRAA in patients over 70 years has not been determined. Clinical correlation is essential. Serum or plasma low density lipoprotein (LDL) cholesterol measurement (mass/volume)Ordered By: Dr. Schulz on 02-20-2023 Cholesterol in LDL [Mass/Vol] 120 mg/dL 0-130 [facility] Serum or plasma urea nitroge n measurement (mass/volume)Ordered By: Dr. Schulz on 02-20-2023 Urea nitrogen [Mass/Vol] 27 mg/dL 7-18 [facility] Thin prep Papanicolaou smear with manual screeningOrdered By: Dr. Schulz on 02-20-2023 Thin prep Papanicolaou smear with manual screening 6 5-15 [facility] Thin prep Papanicolaou smear with manual screening < 5.0 mg/L NO RANGE EST. [facility] Urine creatinine measurement (mass/volume)Ordered By: Dr. Schulz on 02-20-2023 Creatinine (U) [Mass/Vol] 74.10 mg/dL NO RANGE EST. [facility] No Panel Informationon 08-22 Prostate Specific Antigen Screen 1.99 ng/mL 0.00-4.00 [facility] Work Phone: Comment on above: This test was perfor med using the TPSA assay method for [employer] chemistry system. Values obtained with differentassay methods cannot be used interchangably.When changing PSA assays in the course of monitoring apatient, additional sequential testing should be carriedout to confirm baseline values. Absolute lymphocyte counton 07-29-2022 Lymphocytes Auto (Unsp spec) [#/Vol] 1.75 10*3/uL 0.83-4.51 [facility] Work Phone: Basophil percentageon 2021 Basophils/100 WBC (Bld) 0.7 % 0-1 [facility] Work Phone: Chloride [Moles/Vol] 105 mmol/L 98-107 [facility] Work Phone: Eosinophils/100 WBC (Bld) 3.5 % 0-5 [facility] Work Phone: Glucose [Mass/Vol] 116 mg/dL 74-106 [facility] Work Phone: Comment on above: Fasting Glucose resu lt from 100 to 125 mg/dL suggests IMPAIRED HOMEOSTASIS per A.D.A. criteria. Neutrophils (Bld) [#/Vol] 2.9 10*3/uL 2.0-7.7 [facility] Work Phone: Neutrophils/100 WBC (Bld) 53.6 % 47-70 [facility] Work Phone: Potassium [Moles/Vol] 4.1 mmol/L 3.5-5.1 [facility] Work Phone: Sodium [Moles/Vol] 139 mmol/L 136-145 [facility] Work Phone: WBC (Bld) [#/Vol] 5.4 10*3/uL 4.4-11.0 [facility] Work Phone: Blood erythrocytes count (nu mber/volume)on 07-29-2022 RBC (Bld) [#/Vol] 4.10 10*6/uL 4.6-6.2 [facility] Work Phone: Blood hemoglobin measurement (mass/volume)on 07-29-2022 Hemoglobin (Bld) [Mass/Vol] 13.1 g/dL 13.0-16.5 [facility] Work Phone: Blood lymphocytes/100 leukoc yteson 07-29-2022 Lymphocytes/100 WBC (Bld) 32.2 % 19-41 [facility] Work Phone: Blood monocytes/100 leukocyt eson 07-29-2022 Monocytes/100 WBC (Bld) 9.8 % 0-10 [facility] Work Phone: Blood platelet mean volumeon 07-29-2022 Platelet mean volume (Bld) [Entitic vol] 10.4 fL 6.2-12.0 [facility] Work Phone: Determination of erythrocyte mean corpuscular volume (MCV)on 07-29-2022 MCV (RBC) [Entitic vol] 96.1 fL 80-94 [facility] Work Phone: Hematocrit Auto (Bld) [Volum e fraction]on 07-29-2022 Hematocrit (Bld) [Volume fraction] 39.4 % 40-54 [facility] Work Phone: Laboratory - Chemistry and C hemistry - challengeon 07-29-2022 CO2 [Moles/Vol] 26.0 mmol/L 21.0-32.0 [facility] Work Phone: Magnesium [Mass/Vol] 2.0 mg/dL 1.6-2.6 [facility] Work Phone: Urea nitrogen/Creatinine [Mass ratio] 20.7 mg/mg 10-20 [facility] Work Phone: Laboratory - Hematology and Cell countson 07-29-2022 Erythrocyte distribution width (RBC) [Entitic vol] 45.9 fL 35.1-43.9 [facility] Work Phone: Erythrocyte distribution width (RBC) [Ratio] 12.9 % 11.6-14.6 [facility] Work Phone: Immature granulocytes/100 WBC (Bld) 0.200 % 0.0-0.9 [facility] Work Phone: Comment on above: IG% - Immature Granu locytes (promyelocytes, myelocytes and metamyelocytes) > 1% indicates that a LEFT SHIFT is Present. MCH (RBC) [Entitic mass] 32.0 pg 27.0-32.0 [facility] Work Phone: Nucleated RBC/100 WBC (Bld) [Ratio] 0 % 0-5 [facility] Work Phone: MCHC Auto (RBC) [Mass/Vol]on 07-29-2022 MCHC (RBC) [Mass/Vol] 33.2 g/dL 32-36 [facility] Work Phone: No Panel Informationon 07-29 Estimated Creatinine Clearance Calc 40.80 ml/min [facility] Work Phone: Estimated GFR (MDRD) Amer 53 mL/min >60 [facility] Work Phone: Comment on above: GFR Calc Estimated GFR (MDRD) Non-Af Amer 44 mL/min >60 [facility] Work Phone: Comment on above: Non- GFR Calc Thyroid Stimulating Hormone (TSH) 1.68 uIU/mL 0.358-3.74 [facility] Work Phone: Platelets bldon 07-29-2022 Platelets (Bld) [#/Vol] 173 10*3/uL 150-450 [facility] Work Phone: Serum or plasma calcium ana urement (mass/volume)on 07-29-2022 Calcium [Mass/Vol] 9.0 mg/dL 8.5-10.1 [facility] Work Phone: Serum or plasma creatinine m easurement (mass/volume)on 07-29-2022 Creatinine [Mass/Vol] 1.64 mg/dL 0.70-1.30 [facility] Work Phone: Comment on above: The validity of the calculated GFR & GFRAA in patients over 70 years has not been determined. Clinical correlation is essential. Serum or plasma urea nitroge n measurement (mass/volume)on 07-29-2022 Urea nitrogen [Mass/Vol] 34 mg/dL 7-18 [facility] Work Phone: Thin prep Papanicolaou smear with manual screeningon 07-29-2022 Thin prep Papanicolaou smear with manual screening 8 5-15 [facility] Work Phone: CNCOon 01-28-2021 CNCO Letter Text Normal [facility] CNPNon 01-28-2021 CNPN Telephone (SPPRAD) ---- LIA MEDEL ( ) 1950 Date Time Provider Department 01/28/21 YASMINE MANZANARES ([facility])SPPRAD During your visit today, we recorded the following information about you: Yasmine Dutta APRN.SHOP ESTIMATOR 01/28/2021 2:02 PM Signed Recall colonoscopy (2nd [...] Encounter Status:Closed by YASMINE MANZANARES on 01/28/21 [facility] 01-23-2021 CNPN Telephone (SPPRAD) ---- LIA MEDEL ( ) 1950 M Date Time Provider Department 01/23/21 YASMINE MANZANARES ([employer])SPPRAD During your visit today, we recorded the following information about you: Yasmine Dutta APRN.[facility] 01/23/2021 4:20 PM Signed Recall colonoscopy (1st [...] Encounter Status:Closed by YASMINE MANZANARES on 01/23/21 [facility] Vital Signs Date Time Vital Sign Value Performing Clinician Arron hall 2025 14:47-0400 Body height 177.[address] Radha Schulz MD Work Phone: [facility] 2025 14:47-0400 Body mass index (BMI) [Ratio] 25.1 kg/m2 Dr. Radha Schulz MD Work Phone: [facility] 2025 14:47-0400 Body temperature 97.9 [degF] Dr. Radha Schulz MD Work Phone: [facility] 2025 14:47-0400 Body weight 79.[address] Radha Schulz MD Work Phone: [facility] 2025 14:47-0400 Diastolic blood pressure 68 mm[Hg] Dr. Radha Schulz MD Work Phone: [facility] 2025 14:47-0400 Heart rate 93 /min Dr. Radha Schulz MD Work Phone: [facility] 2025 14:47-0400 Respiratory rate 16 /min Dr. Radha Schulz MD Work Phone: [facility] 2025 14:47-0400 SaO2% (BldA) [Mass fraction] 99 % Dr. Radha Schulz MD Work Phone: [facility] 2025 14:47-0400 Systolic blood pressure 155 mm[Hg] Dr. Radha Schulz MD Work Phone: [facility] 11-29-2024 10:57-0500 Body mass index (BMI) [Ratio] 26.4 kg/m2 Dr. Radha Schulz MD Work Phone: [facility] 11-29-2024 10:57-0500 Body temperature 98 [degF] Dr. Radha Schulz MD Work Phone: [facility] 11-29-2024 10:57-0500 Body weight 83.[address] Radha Schulz MD Work Phone: [facility] 11-29-2024 10:57-0500 Diastolic blood pressure 80 mm[Hg] Dr. Radha Schulz MD Work Phone: [facility] 11-29-2024 10:57-0500 Heart rate 58 /min Dr. Radha Schulz MD Work Phone: [facility] 11-29-2024 10:57-0500 SaO2% (BldA) [Mass fraction] 98 % Dr. Radha Schulz MD Work Phone: [facility] 11-29-2024 10:57-0500 Systolic blood pressure 120 mm[Hg] Dr. Radha Schulz MD Work Phone: [facility] 07-29-2022 06:29-0400 Diastolic blood pressure 64 mm[Hg] [facility] Work Phone: 07-29-2022 06:29-0400 Heart rate 69 /min [facility] Work Phone: 07-29-2022 06:29-0400 Respiratory rate 19 /min [facility] Work Phone: 07-29-2022 06:29-0400 SaO2% (BldA) [Mass fraction] 98 % [facility] Work Phone: 07-29-2022 06:29-0400 Systolic blood pressure 127 mm[Hg] [facility] Work Phone: 07-29-2022 05:39-0400 Body height 177.8 cm [facility] Work Phone: 07-29-2022 05:39-0400 Body mass index (BMI) [Ratio] 25.9 kg/m2 [facility] Work Phone: 07-29-2022 05:39-0400 Body temperature 98.1 [degF] [facility] Work Phone: 07-29-2022 05:39-0400 Body weight 82.2 kg [facility] Work Phone: Encounters Encounter Date Encounter Type Care Provider Facility Start: 05-24-2025 End: 05-24-[address] Radha Schulz MD Work Phone: -Laboratory [facility] Start: 05-24-2025 End: 05-24-[address] Luis Angel Roque MD -Laboratory [facility] Start: 05-24-2025 End: 05-24-2025 ambulatory Luis Angel Roque Facility:[facility] Start: 2025 End: 2025 Emergency department patient visit Dr. Radha Scuhlz MD Work Phone: -Emergency Department Work Phone: Start: 01-02-2025 End: 01-02-[address] Kamran Zambrano MD -Radiology, [place] Work Phone: Start: 01-02-2025 End: 01-02-2025 ambulatory Kamrna Zambrano Facility:[facility] Start: 11-29-2024 End: 11-29-2024 Patient encounter procedure Alex HENDRICKSON -[facility] Work Phone: Start: 11-29-2024 End: 11-29-2024 ambulatory Alex HENDRICKSON Facility[place] Start: 02-22-2024 End: 02-22-2024 ambulatory [facility] Work Phone: Start: 02-22-2024 End: 02-22-2024 Patient encounter procedure [facility] Start: 02-20-2023 End: 02-20-2023 ambulatory [facility] Work Phone: Start: 02-20-2023 End: 02-20-2023 Patient encounter procedure [facility] Start: 08-22-2022 End: 08-22-2022 ambulatory [facility] Work Phone: Start: 08-22-2022 End: 08-22-2022 Patient encounter procedure [facility] Start: 07-29-2022 End: 07-29-2022 Emergency department patient visit [facility] Procedures Date Procedure Procedure Detail Performing [...] Date Care Activity Detail Author Start: 2025 [facility] Patient Education [facility] Work Phone: Patient referral [facility] Work Phone: Immunizations Immunization Date Immunization Notes Care Provider Fa cility 11-29-2024 tetanus toxoid, redu niyah diphtheria toxoid, and acellular pertussis vaccine, adsorbed Dr. Radha Schulz MD Work Phone: [facility] 08-19-2021 Influenza virus vaccine [facility] 01-14-2021 Covid ([employer]) [facility] Payers Date Payer Category Payer Private Health Insurance [id number] 2024 Medicare [id number] 2024 Self-pay [id number] Medicare MEDICARE PART A B [id number] Private Health Insurance [id number] Unknown COMMERCIAL OTHER [id number] Unknown [employer] [id number] Unknown AARP MCR ADV [id number] Unknown [id number] Unknown [id number] Unknown [id number] Social History Date Type Detail Facility [facility]: [facility] Start: 07-07-2019 Non-smoker [facility] Start: 1950 Sex Assigned At Male [facility] Start: 2025 [facility] Start: 2025 Sex Male (finding) [facility] Mental Status Date Assessment Result Facility 2025 Cognitive function Level Of Cons ciousness Awake;Alert;Appropriate;Follow s Commands [facility] Work Phone: 07-29-2022 Cognitive function Voice/Name [facility] Work Phone: Discharge summary 2025 Note Date & Type Note Facility 2025 Discharge summary [facility] Discharge summary 2025 Note Date & Type Note Facility 2025 Discharge summary Note Date/Time 2025 3:29pm [facility] Medical Records Department [address] [place] [address] Emergency Department Summary 02/03/25 MR#: [id number] Acct: [id number] Name: LIA MEDEL Rep #:[id number] : [id number] 75 From: Bartolome Kyle MD [...] occurred. 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 He denies abdominal pain, nausea, vomiting or diarrhea. Nuys black or maroon-colored stool. He denies urologic symptoms. He denies paresthesia, anesthesia or motor weakness. Prior similar symptoms: Yes Recent Illness/Hospitalization: No [facility]SH [facility] Medical History Cat bite Hypokalemia HTN (hypertension) [...] Care Provider] - 1 Week Print Language: Cambodian Disposition Disposition: Home, Self Care What to do if you have Problems For any increased pain, shortness of breath, bleeding, nausea or vomiting, chestpain, or any unexpected problems, contact your Primary Care Provider. Call [facility] ([phone]) or report to the closest Emergency Room. Call 911 if necessary. 02/03/25 1528 <Electronically signed by Bartolome Kyle MD> Cosigner Signature (if applicable): CC: Dr. Radha Schulz MD ~ Signed [facility] Work Phone: Evaluation note 11-29-2024 Note Date & Type Note Facility 11-29-2024 Evaluation note Diagnosis Onset Date Resolution Cat bite acute November 29, 2024 10:51am [facility] Work Phone: Evaluation note Note Date & Type Note Facility Evaluation note No assessment information availa ble [facility] Work Phone: Reason for referral (narrative) Note Date & Type Note Facility Reason for referral (narrative) No reason for referral information available [facility] Work Phone: Summary Purpose Family History No Family History Records Found Relationship Condition Age at Onset Recorded Date/T [place] mother Malignant neoplasm of colon Unknown father Coronary artery disease Unknown Advance Directives No Advanced Directives Records Found Advance Directive Response Recorded Date/ Time Living Will No July 29, 2022 5:57am Power of Pants Presser No July 5:57am Advance Directive Response Recorded Date/ Time Living Will Yes 2025 2:51pm Do you have a Healthcare Power of Pants Presser? Yes 2025 2:51pm Name of Medical Power of Pants Presser [facility] [place] 2025 2:51pm Chief Complaint and [...] BE BASED ON THE PRIMARY CLINICAL RECORDS. [facility] provides no warranty or guarantee of the accuracy or completeness of information in this document.
--- NOTE | 2025-10-12 06:44 | ECHOD_ITS ---
Reason For Study Reason For Study: ATRIAL FIB-FLUTTER Procedure This was a 2D Doppler, Color Flow transthoracic echocardiogram. Exam performed portable in patient room. Left Ventricle Normal LV size. Left ventricular systolic function is normal. The left ventricular ejection fraction is 65 %. Normal diastology for age. No regional wall motion abnormalities noted. Right Ventricle Normal RV size. Normal systolic function. Atria Normal left atrium. Normal right atrium. Mitral Valve Normal mitral valve. Tricuspid Valve Normal tricuspid valve. Trivial tricuspid valve insufficiency. Unable to estimate RV systolic pressure due to insufficient tricuspid regurgitant envelope. Aortic Valve Trisinus/trileaflet aortic valve. Pulmonic Valve The pulmonic valve is not well visualized. Great Vessels Normal aortic root. Pericardium/Pleural No pericardial effusion. MMode/2D Measurements & Calculations LVIDd: 4.7 cm IVSd: 0.71 cm asc Aorta Diam: 3.3 cm LVIDs: 2.8 cm LVPWd: 0.96 cm RVDd: 3.1 cm FS: 40.1 % LAV(MOD-bp): 46.6 ml LVAd ap4: 20.7 cm2 LVAd ap2: 21.7 cm2 LAV(MOD-bp) Indexed: 23.6 ml/m2 LVLd ap4: 7.2 cm LVLd ap2: 7.3 cm LAV(MOD-sp2): 40.0 ml EDV(MOD-sp4): 49.6 ml EDV(MOD-sp2): 55.2 ml LAV(MOD-sp4): 40.4 ml EDV(sp4-el): 50.4 ml EDV(sp2-el): 54.4 ml LVAs ap4: 9.6 cm2 LVAs ap2: 9.9 cm2 LVLs ap4: 5.8 cm LVLs ap2: 6.1 cm ESV(MOD-sp4): 13.7 ml ESV(MOD-sp2): 14.7 ml ESV(sp4-el): 13.3 ml ESV(sp2-el): 13.7 ml EF(MOD-sp4): 72.4 % EF(MOD-sp2): 73.3 % EF(sp4-el): 73.5 % SV(MOD-sp4): 35.9 ml SV(MOD-sp2): 40.4 ml SV(sp4-el): 37.1 ml SI(MOD-sp4): 18.2 ml/m2 SI(MOD-sp2): 20.4 ml/m2 LA A4 area: 17.5 cm2 LA dimension(2D): 3.5 cm RA A4 area: 14.8 cm2 TAPSE: 1.9 cm Time Measurements MV dec time: 0.28 sec Doppler Measurements & Calculations MV E max harsh: 78.6 cm/sec Lat Peak E' Harsh: 8.8 cm/sec Med Peak E' Harsh: 8.9 cm/sec MV A max harsh: 79.6 cm/sec E/E' lat: 9.0 E/E' med: 8.8 MV E/A: 0.99 Ao V2 max: 162.7 cm/sec LV V1 max: 154.3 cm/sec MV dec slope: 277.7 cm/sec2 Ao max P.6 mmHg LV V1 max P.5 mmHg Ao V2 mean: 110.1 cm/sec LV V1 mean P.0 mmHg Ao mean P.5 mmHg LV V1 mean: 91.2 cm/sec Ao V2 VTI: 27.6 cm LV V1 VTI: 24.7 cm AV (velocity ratio): 0.90 PA V2 max: 116.1 cm/sec ECHO/Echo Complete Interpretation Summary The left ventricular ejection fraction is 65 %. Normal LV size. Structually normal valves. Ordering Physician: Frances Rahman Referring Physician: Luis Angel Roque Performed By: Coy [place] RDCS
--- NOTE | 2025-10-12 06:45 | HP.PCM.HOS_ITS ---
HPI - General General Date of Admission: 10/12/25 Date of Service: 10/12/25 Chief Complaint: General Weakness and dizziness HPI Narrative LIA MEDEL, is a 75 M who presents to the emergency department with generalized weakness, dizziness and diarrhea. Patient has a medical history of hypertension, he recently had cold symptoms and saw his primary doctor who gave him amoxicillin, after 4 days of amoxicillin he started having severe excessive watery diarrhea for few days and then patient developed anorexia, fatigue, exertional dizziness and reduced urine output. He denies any chest pain, palpitation or shortness of breath. Denies loss of consciousness, headache, change in vision or stroke symptoms. In the ED patient was found to have atrial fibrillation with rates around 150- 160, new for him he never had a history of A-fib or any heart disease, has not seen a space officer. Patient cannot point to any symptoms of palpitations or shortness of breath that happened recently. He only says I had cold symptoms over the last week. Because of absence of clear symptoms with a clear timeline, cardioversion was not attempted in the ED. Diltiazem was ordered but could not be started because of soft blood pressure Also patient was found to have acute kidney injury with a serum creatinine of 5.6 from a normal baseline. He was given IV fluids in the ED and he started making urine. CBC showed no eosinophilia.. He denies any fever or rash. Patient will be admitted to ICU for close monitoring of kidney function and heart rate. Currently has no indication for emergent dialysis. [facility] Medical History Cat bite Hypokalemia HTN (hypertension) Home Medications ?Medication ?Instructions ?Recorded ?Last Taken ?Type metoprolol tartrate 100 mg tablet 100 mg PO DAILY 06/17 01/04 Unknown History potassium chloride 10 mEq 10 meq PO DAILY 07/07/19 Unk nown History tablet,extended release amlodipine 5 mg tablet 5 mg PO DAILY #30 tabs 08/23 Unknown Rx lisinopril 20 1 tab PO DAILY #0 tabs 08/23 Unknown Rx mg-hydrochlorothiazide 25 mg tablet amoxicillin 875 mg-potassium 1 tab PO BID #14 tabs Unknown Rx clavulanate 125 mg tablet Allergy/AdvReac Type Severity Reaction Status Date / Time No Known Allergies Allergy Verified 10/12/25 04:27 Family History Mother Colon cancer Father CAD (coronary artery disease) Social History Smoking Status: Former smoker how long ago did patient quit smokin years alcohol intake: current alcohol intake frequency: a few times a week Alcohol type: beer substance use type: does not use ROS Constitutional Constitutional: Reports anorexia, poor appetite and weakness; Denies fever(s) Eyes Eyes: Denies blurry vision ENT HEENT: Reports none Cardiovascular Cardiovascular: Denies chest pain or dyspnea Respiratory/Chest Respiratory/Chest: Denies cough or wheezing Gastrointestinal Gastrointestinal: Reports change in bowel habits, diarrhea and loose stools; Denies abdominal pain or hematochezia Genitourinary Genitourinary: Reports oliguria Musculoskeletal Musculoskeletal: Denies arthralgias or myalgias Integumentary Integumentary: Reports none Neurologic Neurologic: Reports dizziness; Denies abnormal speech, focal weakness, loss of vision or numbness Hematologic/Lymphatic Hematologic/Lymphatic: Reports none Vital Signs Vital Signs Vital Signs: 10/12/25 04:18 10/12/25 04:20 10/12/25 04:21 Temperature 98.5 F 98.5 F Temperature Source Oral Oral Pulse Rate 164 H 148 H 146 H Respiratory Rate 15 18 Blood Pressure 149/127 H 137/118 H 137/118 H Blood Pressure Mean 134 124 124 Pulse Ox 97 100 Oxygen Delivery Method Room Air Room Air 10/12/25 04:38 10/12/25 05:20 10/12/25 06:00 Temperature 97.9 F 98 F Temperature Source Oral Oral Pulse Rate 163 H 142 H 147 H Respiratory Rate 19 H 18 Blood Pressure 100/82 H 83/53 L 96/77 Blood Pressure Mean 88 63 83 Pulse Ox 98 99 Oxygen Delivery Method Room Air Room Air Weight Weight: 77.4 kg Body Mass Index (BMI) 24.5 Physical Exam Const alert and oriented x3 HEENT normocephalic and head/scalp atraumatic Eyes EOMs intact bilaterally; Negative for no scleral icterus Neck supple Resp normal respiratory effort and clear to auscultation bilaterally Cardio Negative for no murmurs Rate: tachycardic Rhythm: abnormal rhythm irregularly irregular GI normal to inspection, nondistended, normoactive bowel sounds; Negative for non- tender no CVA tenderness Extremity no joint enlargement and no pedal edema Skin no rashes or lesions noted Neuro oriented x3 and moves all extremities Results Lab / Micro Data 10/12/25 04:04 10/12/25 04:04 Labs: Laboratory Results - last 24 hr 10/12/25 04:04: WBC 17.2 H, RBC 4.94, Hgb 15.6, Hct 45.7, MCV 92.5, MCH 31.6, MCHC 34.1, RDW Std Deviation 43.8, RDW Coeff of Regulo 12.9, Plt Count 223, MPV 10.4, Immature Gran % (Auto) 0.500, Neut % (Auto) 79.2 H, Lymph % (Auto) 9.5 L, [place] % (Auto) 8.6, Eos % (Auto) 1.9, Baso % (Auto) 0.3, Absolute Neuts (auto) 13.7 H, Absolute Lymphs (auto) 1.63, Nucleated RBC % 0, Sodium 135, Potassium 4.4, Chloride 95 L, Carbon Dioxide 19.8 L, Anion Gap 19 H, BUN 61 H, Creatinine 5.59 H, Estim Creat Clear Calc 11.43 L, Est GFR (MDRD) Non-Af 10 L, BUN/Creatinine Ratio 10.9, Glucose 119 H, Calcium 9.6, Troponin T High Sens 55 H* 10/12/25 05:58: Urine Color Yellow, Urine Clarity Clear, Urine pH 5.0, Ur Specific [place] 1.025, Urine Protein 30 H, Urine Glucose (UA) Normal, Urine Ketones 5 H, Urine Occult Blood 10 H, Urine Nitrite Negative, Urine Bilirubin 3 H, Urine Urobilinogen 1 H, Ur Leukocyte Esterase 25 H, Urine RBC 0-5 SEEN, Urine WBC 0-5 SEEN, Ur Squamous Epith Cells 0-5 SEEN, Calcium Oxalate Crystal 1+, Urine Bacteria 2+, Hyaline Casts >100 SEEN, Urine Mucus 0 SEEN Rhythm Strip Rhythm Strip: A-fib Rate: 145 Ectopy: None Imaging Radiology Impression Chest X-Ray 10/12/25 04:50 IMPRESSION: There is no evidence of an acute process. Reading Location: [facility] Assessment & Plan Assessment/Plan (1) ZAMZAM (acute kidney injury): (2) Oliguria: (3) Atrial fibrillation with RVR: (4) Elevated troponin: PLAN: Plan 75-year-old man presents with severe acute kidney injury and new onset A-fib with RVR after the development of excessive diarrhea after he started amoxicillin for cold symptoms. ZAMZAM: Very likely prerenal azotemia exacerbated by taking lisinopril and HCTZ at home, which should resolve with intravascular volume resuscitation. Acute drug-induced tubulointerstitial nephritis from amoxicillin is a big possibility but he has no rash, fever and no peripheral eosinophilia. If no improvement in kidney function in few days with hydration, consider corticosteroids No emergent need for dialysis: His potassium, acid-base and volume status are acceptable. No uremic symptoms Ringer lactate fluid resuscitation as patient has some acidosis Repeat kidney function, BMP every 12 hours for 2 days Hold lisinopril and HCTZ from home medications New A-fib: Can be secondary to dehydration and hypovolemia, hopefully it corrects with volume resuscitation. Vague nonspecific symptoms with unclear timeline, so cardioversion was not attempted On metoprolol at home, I will continue as 50 mg twice daily with holding parameters IV metoprolol as needed for rate control as well Check 2D echo Hypertension: Hold home medications HCTZ, lisinopril and amlodipine because of hypotension and ZAMZAM. Continue metoprolol for A-fib as above Charges/Coding Visit Charges Inpatient E&M: 86716 Init Hosp L3
[2025-10-12 06:51] LABS: Troponin T High Sens 2 HR 41 ng/L (<=22)
[2025-10-12] MEDS: Lactated Ringers 1,000 ML 999 ML IV ×2 (07:46→08:49)
[2025-10-12 09:18] LABS: Troponin T High Sens 4 HR 25 ng/L (<=22)
[2025-10-12 09:25] LABS: Anion Gap 21 (5-15); BUN 33 mg/dL (4-19); BUN/Creat Ratio 15.2 RATIO (10-20); Calcium,Total 6.7 mg/dL (7.6-11.0); Carbon Dioxide 10.0 mmol/L (21.0-32.0); Chloride 103 mmol/L (98-108); Estimated Creatinine Clearance 30.50 ml/min (50-250); Glucose 60 mg/dL (70-99); Magnesium 0.9 mg/dL (1.5-2.2); Potassium 4.3 mmol/L (3.3-5.1)
[2025-10-12] MEDS: Magnesium Sulfate 4gm/100mL 4 GM/100 ML IV.SOLN. IV (09:55)
[2025-10-12 12:25] LABS: Reflex Lactate? Y
[2025-10-12] MEDS: 0.9% Saline Lock 10 ML Syringe IV (13:56)
[2025-10-12] MEDS: Heparin Injection (Vial) 5,000 UNIT/ML VIAL 5000 UNIT SC ×2 (13:56→22:33)
[2025-10-12] MEDS: Vancomycin 125 MG/5 ML Susp PO.SYRINGE PO ×3 (14:48→22:33)
[2025-10-12 15:15] LABS: Hematocrit 37.1 % (40-54); Hemoglobin 12.3 g/dL (13.0-16.5); Mean Corp Hgb Conc 33.2 g/dL (32-36); Mean Corpuscular Volume 93.7 fL (80-94); Mean Platelet Vol. 10.4 fl (6.2-12.0); Platelet Count 208 K/mm3 (150-450); RBC Distribution Width CV 12.8 % (11.6-14.6); RBC Distribution Width SD 44.3 fl (35.1-43.9); Red Blood Count 3.96 M/mm3 (4.6-6.2); White Blood Count 13.0 K/mm3 (4.4-11.0)
[2025-10-12 15:44] LABS: Magnesium 2.8 mg/dL (1.5-2.2)
--- NOTE | 2025-10-12 15:48 | PCM.HOSP.N ---
Hospitalist Note 75-year-old male with a history of hypertension presented to [facility] ED 10/12/2025 due to generalized weakness, dizziness, and diarrhea. He had had cold symptoms about a week ago with mostly chest congestion and was given amoxicillin. After 4 days his respiratory symptoms were better however he developed watery diarrhea and has had very poor p.o. intake since that time and subsequently has had reduced urine output. In the ED temp 98.5, heart rate 165 and blood pressure 149/127, respiratory rate 15 and pulse ox 97% on room air. White count in the ED 17.2, hemoglobin 15.6 which is up from baseline, bicarb of 19.8 with a gap of 19, BUN of 61 and a creatinine of 5.59 significantly up from baseline. Troponin found to be 55. Patient given IV fluids and hospitalist contacted for admission for ZAMZAM and A-fib with RVR. # ZAMZAM - Baseline creatinine around 1.7, on presentation creatinine 5.597 - Suspected due to dehydration and diarrhea -Patient given significant amount of IV fluids and repeat creatinine 2.16 continue current management # Diarrheal illness -Patient developed diarrhea after being on amoxicillin for 4 days with profound watery diarrhea and difficulty maintaining hydration leading to hospitalization for significant volume depletion -C. difficile obtained and did show positive antigen, reported out negative toxin however given significance of patient's diarrhea and illness I think it is reasonable to start oral vancomycin -This has been started -Does have enteric panel pending to make sure there are no other pathogens # A-fib with RVR? Resolved - Patient presented with a rate in the 160s and it appeared to be A-fib -Converted in the ICU after IV fluids -Continue metoprolol -Does have echo ordered -TSH within normal limits -Does not have a history of this -Considering no history of A-fib and patient converted quickly with volume resuscitation will monitor on telemetry but if no further episodes may not empirically anticoagulate on DC # Elevated troponin -Initial troponin 55 and subsequently downtrended to 41 and then 25 -Suspect this was due to elevated heart rate/A-fib with RVR in the setting of significant ZAMZAM -No chest pain, no further workup at this time #Hypertension - BP is on the low side, on metoprolol due to his A-fib but will decrease dose especially given he is converted -Holding lisinopril/hydrochlorothiazide and amlodipine #DVT ppx: Heparin subcu Renata Montana MD
[2025-10-12 16:01] LABS: Anion Gap 13 (5-15); BUN 51 mg/dL (4-19); BUN/Creat Ratio 14.2 RATIO (10-20); Calcium,Total 8.1 mg/dL (7.6-11.0); Carbon Dioxide 19.0 mmol/L (21.0-32.0); Chloride 103 mmol/L (98-108); Estimated Creatinine Clearance 18.46 ml/min (50-250); Glucose 125 mg/dL (70-99); Potassium 4.6 mmol/L (3.3-5.1)
[2025-10-12] MEDS: 0.9% Normal Saline (1000mL) 1,000 ML 50 ML IV (16:39)
[2025-10-12] MEDS: Sodium Phosphate/Na Biphos 21 MMOL in 0.9% Normal Saline (250mL Bag) 250 ML 84 MMOL IV (16:39)
[2025-10-12] MEDS: Ensure Plus High Protein 120 ML LIQUID PO (17:04)
[2025-10-13] VITALS (7 sets, daily range): BP systolic 118–132; BP diastolic 55–64; PULSE 70–81; RESP 14–18; TEMP 36–36.6; O2SAT 98–99; BMI 24.5
[2025-10-13] MEDS: Heparin Injection (Vial) 5,000 UNIT/ML VIAL 5000 UNIT SC ×3 (04:55→22:06)
[2025-10-13 06:27] LABS: Hematocrit 34.8 % (40-54); Hemoglobin 11.8 g/dL (13.0-16.5); Mean Corp Hgb Conc 33.9 g/dL (32-36); Mean Corpuscular Volume 92.1 fL (80-94); Mean Platelet Vol. 10.2 fl (6.2-12.0); Platelet Count 180 K/mm3 (150-450); RBC Distribution Width CV 13.0 % (11.6-14.6); RBC Distribution Width SD 43.5 fl (35.1-43.9); Red Blood Count 3.78 M/mm3 (4.6-6.2); White Blood Count 7.4 K/mm3 (4.4-11.0)
[2025-10-13 07:26] LABS: Anion Gap 14 (5-15); BUN 37 mg/dL (4-19); BUN/Creat Ratio 16.7 RATIO (10-20); Calcium,Total 7.5 mg/dL (7.6-11.0); Carbon Dioxide 16.6 mmol/L (21.0-32.0); Chloride 107 mmol/L (98-108); Estimated Creatinine Clearance 29.81 ml/min (50-250); Glucose 90 mg/dL (70-99); Magnesium 2.3 mg/dL (1.5-2.2); Potassium 4.0 mmol/L (3.3-5.1)
[2025-10-13] MEDS: Ensure Plus High Protein 120 ML LIQUID PO (08:55)
--- NOTE | 2025-10-13 09:03 | CASEMGMT ---
Dx: ZAMZAM ARNAV: 2 6-Clicks: 23 Medical record reviewed and patient evaluated for identification of discharge planning needs. Based on this review, at this time criteria are not present to indicate a need for discharge planning. Will remain available to assist with discharge planning needs as identified or requested.
[2025-10-13] MEDS: Vancomycin 125 MG/5 ML Susp PO.SYRINGE PO ×4 (11:26→22:05)
[2025-10-13] MEDS: 0.9% Normal Saline (1000mL) 1,000 ML 50 ML IV (13:03)
[2025-10-13] MEDS: Lactated Ringers 1,000 ML 100 ML IV (14:17)
--- NOTE | 2025-10-13 17:22 | PN.HOSP_ITS ---
Reason for Visit Chief Complaint: General Weakness and dizziness Subjective Subjective Pt still having loose stool, minimal decrease, attempting to increase PO intake, no abd pain, no n/v Objective Data Objective Data Vital Signs: Vital Signs Temp Pulse Resp BP Pulse Ox O2 Del Method 97.0 F L 70 16 130/60 H 99 Room Air 10/13/25 10:45 10/13/25 10:45 10/13/25 10:45 10/13/25 10:45 10/13/25 10:45 10/13/25 14:00 Oxygen Delivery Method Room Air Weight: 80 kg Body Mass Index (BMI) 24.5 Intake & Output: Intake and Output for Last 24 Hours 10/11/25 10/12/25 10/13/25 23:59 23:59 23:59 Intake Total 6422 / 6422 1120 / 1120 Balance 6422 / 6422 1120 / 1120 Lab / Micro Data 10/13/25 06:13 10/13/25 06:13 Labs: Laboratory Results - last 24 hr 10/13/25 06:13: WBC 7.4, RBC 3.78 L, Hgb 11.8 L, Hct 34.8 L, MCV 92.1, MCH 31.2, MCHC 33.9, RDW Std Deviation 43.5, RDW Coeff of Regulo 13.0, Plt Count 180, MPV 10.2, Sodium 138, Potassium 4.0, Chloride 107, Carbon Dioxide 16.6 L, Anion Gap 14, BUN 37 H, Creatinine 2.21 H, Estim Creat Clear Calc 29.81 L, Est GFR (MDRD) Non-Af 30 L, BUN/Creatinine Ratio 16.7, Glucose 90, Calcium 7.5 L, Phosphorus 3.3, Magnesium 2.3 H Micro: Microbiology 10/12/25 13:30 Stool Enteric Bacteriology - Final 10/12/25 05:58 Stool C. difficile GDH Antigen & Toxins - Final 10/12/25 05:58 Stool Clostridioides difficile (PCR) - Final Radiography Diagnostic Testing: Radiology Impression Echocardiogram 10/12/25 06:44 Interpretation Summary The left ventricular ejection fraction is 65 %. Normal LV size. Structually normal valves. Ordering Physician: Frances Rahman Referring Physician: Luis Angel Roque Performed By: Coy [place] RDCS Rhythm Strip Rhythm Strip: A-fib Rate: 145 Ectopy: None Physical Exam Narrative General: Alert, oriented, no apparent distress HEENT: Atraumatic, normocephalic Eyes: Anicteric, normal conjunctiva, extraocular movements grossly intact Neck: Supple Respiratory: normal respiratory effort Cardiovascular: Regular rate and rhythm GI: Soft, nontender, nondistended Extremities: No edema Musculoskeletal: Moving all extremities Neuro: No overt focal neurological deficits Skin: No rashes appreciated Psych: Cooperative Assessment & Plan Assessment/Plan (1) ZAMZAM (acute kidney injury): PLAN: Plan 75-year-old male with a history of hypertension presented to [facility] ED 10/12/2025 due to generalized weakness, dizziness, and diarrhea. He had had cold symptoms about a week ago with mostly chest congestion and was given amoxicillin. After 4 days his respiratory symptoms were better however he developed watery diarrhea and has had very poor p.o. intake since that time and subsequently has had reduced urine output. In the ED temp 98.5, heart rate 165 and blood pressure 149/127, respiratory rate 15 and pulse ox 97% on room air. White count in the ED 17.2, hemoglobin 15.6 which is up from baseline, bicarb of 19.8 with a gap of 19, BUN of 61 and a creatinine of 5.59 significantly up from baseline. Troponin found to be 55. Patient given IV fluids and hospitalist contacted for admission for ZAMZAM and A-fib with RVR. # ZAMZAM - Baseline creatinine around 1.7, on presentation creatinine 5.597 - Suspected due to dehydration and diarrhea -Patient given significant amount of IV fluids and repeat creatinine 2.16 continue current management -10/13: Creatinine increased to 3.5 740 decreasing to 2.21 again. Still having a lot of diarrhea so placing patient back on IV fluids, continue vancomycin. Enteric panel negative for additional pathogens. Patient did have bladder scan yesterday and did not seem to be excessively retaining, postvoid was around 100 cc # Diarrheal illness?suspect C. difficile -Patient developed diarrhea after being on amoxicillin for 4 days with profound watery diarrhea and difficulty maintaining hydration leading to hospitalization for significant volume depletion -C. difficile obtained and did show positive antigen, reported out negative toxin however given significance of patient's diarrhea and illness I think it is reasonable to start oral vancomycin -This has been started -Does have enteric panel pending to make sure there are no other pathogens -10/13: Enteric panel otherwise pending, patient on oral vancomycin # A-fib with RVR? Resolved - Patient presented with a rate in the 160s and it appeared to be A-fib -Converted in the ICU after IV fluids -Continue metoprolol -Does have echo ordered -TSH within normal limits -Does not have a history of this -Considering no history of A-fib and patient converted quickly with volume resuscitation will monitor on telemetry but if no further episodes may not empirically anticoagulate on DC -10/13: Being monitored on telemetry, still in sinus rhythm though appears sinus rhythm mannered minimally but did not see any A-fib #Hypertension - BP is on the low side, on metoprolol due to his A-fib but will decrease dose especially given he is converted -Holding lisinopril/hydrochlorothiazide and amlodipine -10/13: Blood pressure 130/60 today, if BP remains stable tomorrow may start adding back blood pressure medications #DVT ppx: Heparin subcu Renata Montana MD Charges/Coding Visit Charges Inpatient E&M: 56367 Subs Hosp L2
[2025-10-14] VITALS (9 sets, daily range): BP systolic 119–139; BP diastolic 59–66; PULSE 68–81; RESP 16; TEMP 36.1–36.4; O2SAT 97–100; BMI 24.5
[2025-10-14] MEDS: Lactated Ringers 1,000 ML 100 ML IV (00:17)
[2025-10-14] MEDS: Heparin Injection (Vial) 5,000 UNIT/ML VIAL 5000 UNIT SC ×3 (05:17→21:56)
[2025-10-14 06:55] LABS: Hematocrit 35.8 % (40-54); Hemoglobin 11.9 g/dL (13.0-16.5); Mean Corp Hgb Conc 33.2 g/dL (32-36); Mean Corpuscular Volume 93.0 fL (80-94); Mean Platelet Vol. 10.6 fl (6.2-12.0); Platelet Count 193 K/mm3 (150-450); RBC Distribution Width CV 12.7 % (11.6-14.6); RBC Distribution Width SD 43.7 fl (35.1-43.9); Red Blood Count 3.85 M/mm3 (4.6-6.2); White Blood Count 6.0 K/mm3 (4.4-11.0)
[2025-10-14 07:10] LABS: Anion Gap 10 (5-15); BUN 22 mg/dL (4-19); BUN/Creat Ratio 15.4 RATIO (10-20); Calcium,Total 8.1 mg/dL (7.6-11.0); Carbon Dioxide 22.8 mmol/L (21.0-32.0); Chloride 107 mmol/L (98-108); Estimated Creatinine Clearance 46.40 ml/min (50-250); Glucose 97 mg/dL (70-99); Potassium 3.9 mmol/L (3.3-5.1)
[2025-10-14] MEDS: Vancomycin 125 MG/5 ML Susp PO.SYRINGE PO ×4 (08:31→21:53)
[2025-10-14] MEDS: Ensure Plus High Protein 120 ML LIQUID PO ×3 (08:32→17:38)
--- NOTE | 2025-10-14 15:44 | PN.HOSP_ITS ---
Reason for Visit Chief Complaint: General Weakness and dizziness Subjective Subjective Stool slowly beginning to form, attempting to increase PO intake, no abd pain or n/v Objective Data Objective Data Vital Signs: Vital Signs Temp Pulse Resp BP Pulse Ox O2 Del Method 97.3 F L 81 16 119/59 L 100 Room Air 10/14/25 13:44 10/14/25 13:44 10/14/25 13:44 10/14/25 13:44 10/14/25 13:44 10/14/25 13:44 Oxygen Delivery Method Room Air Weight: 80 kg Body Mass Index (BMI) 24.5 Intake & Output: Intake and Output for Last 24 Hours 10/12/25 10/13/25 10/14/25 23:59 23:59 23:59 Intake Total 6421 / 641930.67 / 1930. 2420 / 242 Balance 6421 / 6422 / 2420 / 242 Lab / Micro Data 10/14/25 05:57 10/14/25 05:57 Labs: Laboratory Results - last 24 hr 10/14/25 05:57: WBC 6.0, RBC 3.85 L, Hgb 11.9 L, Hct 35.8 L, MCV 93.0, MCH 30.9, MCHC 33.2, RDW Std Deviation 43.7, RDW Coeff of Regulo 12.7, Plt Count 193, MPV 10.6, Sodium 139, Potassium 3.9, Chloride 107, Carbon Dioxide 22.8, Anion Gap 10, BUN 22 H, Creatinine 1.42 H, Estim Creat Clear Calc 46.40 L, Est GFR (MDRD) Non-Af 51 L, BUN/Creatinine Ratio 15.4, Glucose 97, Calcium 8.1 Micro: Microbiology 10/12/25 05:58 Urine, Clean Catch Urine Culture - Final Culture exhibits no growth. 10/12/25 13:30 Stool Enteric Bacteriology - Final 10/12/25 05:58 Stool C. difficile GDH Antigen & Toxins - Final 10/12/25 05:58 Stool Clostridioides difficile (PCR) - Final Radiography Diagnostic Testing: Radiology Impression Echocardiogram 10/12/25 06:44 Interpretation Summary The left ventricular ejection fraction is 65 %. Normal LV size. Structually normal valves. Ordering Physician: Frances Rahman Referring Physician: Luis Angel Roque Performed By: Coy [place] RDCS Rhythm Strip Rhythm Strip: A-fib Rate: 145 Ectopy: None Physical Exam Narrative General: Alert, oriented, no apparent distress HEENT: Atraumatic, normocephalic Eyes: Anicteric, normal conjunctiva, extraocular movements grossly intact Neck: Supple Respiratory: normal respiratory effort Cardiovascular: Regular rate and rhythm GI: Soft, nontender, nondistended Extremities: No edema Musculoskeletal: Moving all extremities Neuro: No overt focal neurological deficits Skin: No rashes appreciated Psych: Cooperative Assessment & Plan Assessment/Plan (1) ZAMZAM (acute kidney injury): PLAN: Plan 75-year-old male with a history of hypertension presented to [facility] ED 10/12/2025 due to generalized weakness, dizziness, and diarrhea. He had had cold symptoms about a week ago with mostly chest congestion and was given amoxicillin. After 4 days his respiratory symptoms were better however he developed watery diarrhea and has had very poor p.o. intake since that time and subsequently has had reduced urine output. In the ED temp 98.5, heart rate 165 and blood pressure 149/127, respiratory rate 15 and pulse ox 97% on room air. White count in the ED 17.2, hemoglobin 15.6 which is up from baseline, bicarb of 19.8 with a gap of 19, BUN of 61 and a creatinine of 5.59 significantly up from baseline. Troponin found to be 55. Patient given IV fluids and hospitalist contacted for admission for ZAMZAM and A-fib with RVR. # ZAMZAM - Baseline creatinine around 1.7, on presentation creatinine 5.597 - Suspected due to dehydration and diarrhea -Patient given significant amount of IV fluids and repeat creatinine 2.16 continue current management -10/13: Creatinine increased to 3.5 740 decreasing to 2.21 again. Still having a lot of diarrhea so placing patient back on IV fluids, continue vancomycin. Enteric panel negative for additional pathogens. Patient did have bladder scan yesterday and did not seem to be excessively retaining, postvoid was around 100 cc -10/14: Still beginning to slow down, creatinine 1.42. Will hold IV fluids and see if patient able to maintain hydration, if kidney function stable tomorrow we will plan to DC home # Diarrheal illness?suspect C. difficile -Patient developed diarrhea after being on amoxicillin for 4 days with profound watery diarrhea and difficulty maintaining hydration leading to hospitalization for significant volume depletion -C. difficile obtained and did show positive antigen, reported out negative toxin however given significance of patient's diarrhea and illness I think it is reasonable to start oral vancomycin -This has been started -Does have enteric panel pending to make sure there are no other pathogens -10/13: Enteric panel otherwise pending, patient on oral vancomycin -10/14: Stool beginning to become more formed. Likely DC tomorrow on oral vancomycin # A-fib with RVR? Resolved - Patient presented with a rate in the 160s and it appeared to be A-fib -Converted in the ICU after IV fluids -Continue metoprolol -Does have echo ordered -TSH within normal limits -Does not have a history of this -Considering no history of A-fib and patient converted quickly with volume resuscitation will monitor on telemetry but if no further episodes may not empirically anticoagulate on DC -10/13: Being monitored on telemetry, still in sinus rhythm though appears sinus rhythm mannered minimally but did not see any A-fib -10/14: Has not had recurrence, will not start anticoagulation #Hypertension - BP is on the low side, on metoprolol due to his A-fib but will decrease dose especially given he is converted -Holding lisinopril/hydrochlorothiazide and amlodipine -10/13: Blood pressure 130/60 today, if BP remains stable tomorrow may start adding back blood pressure medications -10/14: BP 119/59, hold off on resuming anticoagulation as this is reasonable blood pressure acutely #DVT ppx: Heparin subcu Renata Montana MD Time spent in the patient's overall evaluation,decision-making process, review of diagnostic data, adjustment of management, discussion with other providers, nursing nursing and ancillary staff involved in patient's care documentation, 37 Minutes Charges/Coding Visit Charges Inpatient E&M: 67076 Subs Hosp L2
[2025-10-15 03:00] VITALS: PULSE 68
[2025-10-15 04:14] VITALS: BMI 24.6
[2025-10-15] MEDS: Heparin Injection (Vial) 5,000 UNIT/ML VIAL 5000 UNIT SC (05:10)
[2025-10-15 05:11] VITALS: BP 129/65; PULSE 75; RESP 15; TEMP 36.2; O2SAT 97
[2025-10-15 07:29] LABS: Hematocrit 37.1 % (40-54); Hemoglobin 12.3 g/dL (13.0-16.5); Mean Corp Hgb Conc 33.2 g/dL (32-36); Mean Corpuscular Volume 92.8 fL (80-94); Mean Platelet Vol. 10.0 fl (6.2-12.0); Platelet Count 214 K/mm3 (150-450); RBC Distribution Width CV 12.5 % (11.6-14.6); RBC Distribution Width SD 42.8 fl (35.1-43.9); Red Blood Count 4.00 M/mm3 (4.6-6.2); White Blood Count 5.6 K/mm3 (4.4-11.0)
[2025-10-15 07:40] LABS: Anion Gap 10 (5-15); BUN 13 mg/dL (4-19); BUN/Creat Ratio 10.9 RATIO (10-20); Calcium,Total 8.2 mg/dL (7.6-11.0); Carbon Dioxide 23.5 mmol/L (21.0-32.0); Chloride 104 mmol/L (98-108); Estimated Creatinine Clearance 56.31 ml/min (50-250); Glucose 97 mg/dL (70-99); Magnesium 1.6 mg/dL (1.5-2.2); Potassium 3.6 mmol/L (3.3-5.1)
[2025-10-15 09:13] VITALS: BP 128/63; PULSE 76; RESP 16; TEMP 36.3; O2SAT 99
[2025-10-15 09:15] VITALS: PULSE 76
[2025-10-15] MEDS: Ensure Plus High Protein 120 ML LIQUID PO ×2 (09:15→12:47)
[2025-10-15] MEDS: Vancomycin 125 MG/5 ML Susp PO.SYRINGE PO ×2 (09:15→13:53)
--- NOTE | 2025-10-15 11:10 | PCM.DC ---
Discharge Instructions DC O2, CPAP, BIPAP needs Home O2 Discharge instructions: No Dressing / Incision Discharge Activity: - (Resume every day life when symptoms stop) Follow Up Care Test Results: Test results from this visit will be discussed in further detail at your follow-up appointment, if applicable. Discharge Plan Admission Admit Date/Time: 10/12/25 06:13 Primary Reason for Your Visit: Diarrhea and dehydration Attending Provider: Renata Motnana Primary Care Provider: Luis Angel Roque Consulting Providers: Frances Rahman Instructions Patient Instructions: C Diff Infect Additional Instructions / Restrictions: DISCHARGE INSTRUCTIONS PLEASE READ *Please take this with you to your next doctors appointment* - You will need to take 2 more doses of vancomycin today followed by vancomycin 4 times daily for 7 additional days. A prescription for this was sent into [facility] in [place], [place], your pharmacy on file -Try to use a separate bathroom if you have diarrhea from C. diff infection. If you can't, be sure the commonly touched surfaces in the bathroom are cleaned before others use it -Take showers and wash with soap to remove any C. diff germs you could have on your body. -Do not cook food for others while you have diarrhea. -Clostridium difficile (C. diff) germs can stay on your hands after you use the bathroom, then spread to any person, surface, or objects you touch. Washing your hands often is one of the best ways to not spread C. diff. Remind your relatives and friends to do the same. -To wash your hands: Rinse your hands first, then scrub with soap for at least 20 seconds. If you need a timer, hum the Happy Birthday song twice while you wash. Rinse your hands well and dry them. Below are more tips for good handwashing. -Always wash hands: After using the bathroom Before and after preparing food Before and after eating After touching any object or surface that may have C. diff germs on it Alcohol-based infantry indirect fire crewmember don't work against C. diff germs. Scrub your hands for 20 seconds with clean, running water and soap. -Cleaning and disinfecting surfaces and laundry, especially if someone is sick in your home already, can reduce your risk of C. diff infection -How to wash: Use the hottest water that is safe for items. Use chlorine bleach if you can safely do so without damaging items (You can use a bleach-based glass mould cleaner, or make your own by mixing 1 cup (240 mL) of bleach with 10 cups (2365 mL) of water to clean any hard surfaces in your home.) Consider wearing gloves while handling items. Always wash hands with soap and water after handling laundry, even if you wore gloves -Any time antibiotics are used they can cause side effects, including C. diff infection. Take antibiotics only when you need them, and talk to a healthcare professional about the best treatment for your illness -Stay home from work and school until you stop having diarrhea. Resume every day life when symptoms stop -Drink adequate fluids -It is possible to have a recurrence of C. Diff. If you have recurrent diarrhea or concerns please contact your primary care provider as you may need to be retested and possibly treated again Discharge Orders/Prescriptions Prescriptions: New vancomycin [Firvanq] 25 mg/mL Recon Soln 125 mg PO 4X/DAY 7 Days Qty: 150 0RF Rx Instructions: You need 2 more doses today then 4x daily for 7 more days Continued amlodipine 5 mg tablet 5 mg PO DAILY Qty: 30 0RF Changed metoprolol tartrate 100 MG tablet 50 mg PO BID Qty: 90 0RF Held potassium chloride 10 MEQ tablet extended release 10 meq PO DAILY Hold Instructions: Resume on 10/23/25. lisinopril-hydrochlorothiazide 1 EACH tablet 1 tab PO DAILY Qty: 0 0RF Hold Instructions: Resume on 10/23/25. Discontinued amoxicillin-pot clavulanate 875-125 mg tablet 1 tab PO BID Qty: 14 0RF Referrals / Follow Up: Luis Angel Roque MD [Primary Care Provider, Family Practice] - Within 1 Week Disposition Disposition (needs filled in before D/C Order can be placed): Home, Self Care
--- NOTE | 2025-10-15 11:43 | DS.PCM_ITS ---
Providers Date of Admission: 10/12/25 Date of Discharge: 10/15/25 Primary Care Physician: Luis Angel Roque MD Reason For Visit: ACUTE KIDNEY INJURY Diagnosis Discharge Diagnosis (1) Clostridioides difficile diarrhea: Status: Acute Code(s): A04.72 - Enterocolitis due to Clostridium difficile, not specified as recurrent (2) ZAMZAM (acute kidney injury): Status: Resolved Code(s): N17.9 - Acute kidney failure, unspecified (3) Atrial fibrillation with RVR: Status: Resolved Code(s): I48.91 - Unspecified atrial fibrillation (4) Elevated troponin: Status: Resolved Code(s): R77.8 - Other specified abnormalities of plasma proteins (5) Leukocytosis: Status: Resolved Code(s): D72.829 - Elevated white blood cell count, unspecified Plan #Cdiff associated diarrhea #ZAMZAM 2/2 dehydration from diarrhea-resolved #Afib w/ RVR- resolved #Hx HTN Medications at Discharge Home Medications potassium chloride 10 mEq tablet,extended release 10 meq PO DAILY supplement 07/07/19 Held on 10/15/25. Instructions: Resume on 10/23/25. amlodipine 5 mg tablet 5 mg PO DAILY blood pressure #30 tabs 08/23/21 lisinopril 20 mg-hydrochlorothiazide 25 mg tablet 1 tab PO DAILY blood pressure #0 tabs 08/23/21 Held on 10/15/25. Instructions: Resume on 10/23/25. metoprolol tartrate 100 mg tablet 50 mg (1/2 x 100 mg) PO BID #90 tabs 10/15/25 vancomycin 25 mg/mL oral solution (Firvanq) 125 mg (5 mL) PO 4X/DAY 7 days #150 mL 10/15/25 Hospital Course Summary of Care Provided Minutes Spent on Discharge: 35 Hospital Course: 75-year-old male with a history of hypertension presented to [facility] ED 10/12/2025 due to generalized weakness, dizziness, and diarrhea. He had had cold symptoms about a week ago with mostly chest congestion and was given Augmentin. After 4 days his respiratory symptoms were better however he developed watery diarrhea and has had very poor p.o. intake since that time and subsequently has had reduced urine output. In the ED temp 98.5, heart rate 165 and irregular and blood pressure 149/127, respiratory rate 15 and pulse ox 97% on room air. White count in the ED 17.2, hemoglobin 15.6 which is up from baseline, bicarb of 19.8 with a gap of 19, BUN of 61 and a creatinine of 5.59 significantly up from baseline. Troponin found to be 55. Patient given IV fluids and hospitalist contacted for admission for ZAMZAM and A-fib with RVR. Pt given aggressive IVF and stool studies sent. Cdiff Ag positive w/ toxin negative, however given clinical picture w/ Ag positive, elevated WBC and significant watery diarrhea that started 4 days after pt began on amoxicillin pt was treated with vancomycin and did show improvement in symptoms. Kidney fxn improved and pt had improved PO intake and was monitored off IVF and was noted to have stable creatinine. Reports improving stools the day prior to and the day of discharge, given improvement in symptoms, diarrhea, and correction of ZAMZAM and pt maintaining hydration off IVF pt stable for discharge. On day of d/c no new or acute complaints. Pt comfortable with the plan. Of note when pt came in to ER he was found to be in afib w/ rvr, pt converted very quickly with only aggressive IVF without need for additional intervention and maintained NSR w/ no further afib on tele in in the subsequent >72 hours despite only being on the equivalent of his home does of metoprolol. Echo also obtained and showed no acute process. Given very quick conversion w/ only IVF and pt maintaining NSR >72 hours on tele will plan to d/c on home metoprolol and advise close f/u with PCP for close monitoring and consideration of terminal press operator anticoagulation vs monitoring. D/c instructions as follows: DISCHARGE INSTRUCTIONS PLEASE READ *Please take this with you to your next doctors appointment* - You briefly had an irregular heart rhythm that resolved once you were given IV fluid. Please discuss this with your primary care provider on discharge as it is possible they may want to discuss starting a blood thinner versus watching for recurrence -Would recommend lab work (BMP) to check your potassium and kidney function in 2 to 3 days through your primary care physician's office. Please call their office upon discharge to obtain order for lab work. - Please follow closely with your primary care physician. Would recommend holding your lisinopril?hydrochlorothiazide until you can follow-up for blood pressure check and potentially labs if there are any concerns that kidney function may have worsened - Records indicate you are taking metoprolol to tartrate 100 mg daily, would recommend taking half a tab twice a day (50 mg twice a day) instead due to the duration of action of this medication. - You will need to take 2 more doses of vancomycin today followed by vancomycin 4 times daily for 7 additional days. A prescription for this was sent into [facility] in [place], [place], your pharmacy on file -Try to use a separate bathroom if you have diarrhea from C. diff infection. If you can't, be sure the commonly touched surfaces in the bathroom are cleaned before others use it -Take showers and wash with soap to remove any C. diff germs you could have on your body. -Do not cook food for others while you have diarrhea. -Clostridium difficile (C. diff) germs can stay on your hands after you use the bathroom, then spread to any person, surface, or objects you touch. Washing your hands often is one of the best ways to not spread C. diff. Remind your relatives and friends to do the same. -To wash your hands: Rinse your hands first, then scrub with soap for at least 20 seconds. If you need a timer, hum the Happy Birthday song twice while you wash. Rinse your hands well and dry them. Below are more tips for good handwashing. -Always wash hands: After using the bathroom Before and after preparing food Before and after eating After touching any object or surface that may have C. diff germs on it Alcohol-based mash preparatory operator don't work against C. diff germs. Scrub your hands for 20 seconds with clean, running water and soap. -Cleaning and disinfecting surfaces and laundry, especially if someone is sick in your home already, can reduce your risk of C. diff infection -How to wash: Use the hottest water that is safe for items. Use chlorine bleach if you can safely do so without damaging items (You can use a bleach-based fish cleaner machine tender, or make your own by mixing 1 cup (240 mL) of bleach with 10 cups (2365 mL) of water to clean any hard surfaces in your home.) Consider wearing gloves while handling items. Always wash hands with soap and water after handling laundry, even if you wore gloves -Any time antibiotics are used they can cause side effects, including C. diff infection. Take antibiotics only when you need them, and talk to a healthcare professional about the best treatment for your illness -Stay home from work and school until you stop having diarrhea. Resume every day life when symptoms stop -Drink adequate fluids -It is possible to have a recurrence of C. Diff. If you have recurrent diarrhea or concerns please contact your primary care provider as you may need to be retested and possibly treated again -Please call your primary care provider's office upon discharge to schedule a hospital follow up within 1 week. -For any concerning signs or symptoms please call 911 or proceed to the nearest emergency department Physical Exam Narrative General: Alert, oriented, no apparent distress HEENT: Atraumatic, normocephalic Eyes: Anicteric, normal conjunctiva, extraocular movements grossly intact Neck: Supple Respiratory: normal respiratory effort Cardiovascular: Regular rate and rhythm GI: Soft, nontender, nondistended Extremities: No edema Musculoskeletal: Moving all extremities Neuro: No overt focal neurological deficits Skin: No rashes appreciated Psych: Cooperative Weight / BMI Weight Weight: 80.1 kg Body Mass Index (BMI) 24.6 ABG / Lab / Microbiology Data 10/15/25 07:00 10/15/25 06:51 Laboratory: Laboratory Results - last 24 hr 10/15/25 06:51: Sodium 138, Potassium 3.6, Chloride 104, Carbon Dioxide 23.5, Anion Gap 10, BUN 13, Creatinine 1.17, Estim Creat Clear Calc 56.31, Est GFR (MDRD) Non-Af 64, BUN/Creatinine Ratio 10.9, Glucose 97, Calcium 8.2, Phosphorus 2.2 L, Magnesium 1.6 10/15/25 07:00: WBC 5.6, RBC 4.00 L, Hgb 12.3 L, Hct 37.1 L, MCV 92.8, MCH 30.8, MCHC 33.2, RDW Std Deviation 42.8, RDW Coeff of Regulo 12.5, Plt Count 214, MPV 10.0 Microbiology: Microbiology 10/12/25 05:58 Urine, Clean Catch Urine Culture - Final Culture exhibits no growth. 10/12/25 13:30 Stool Enteric Bacteriology - Final 10/12/25 05:58 Stool C. difficile GDH Antigen & Toxins - Final 10/12/25 05:58 Stool Clostridioides difficile (PCR) - Final D/C Instructions DC O2, CPAP, BIPAP Needs Home O2 Discharge instructions: No Meaningful Use Info Meaningful Use Meaningful Use Diagnoses (Choose all that apply): None applicable Discharge Plan Admission Admit Date/Time: 10/12/25 06:13 Primary Reason for Your Visit: Diarrhea and dehydration Attending Provider: Renata Montana Primary Care Provider: Luis Angel Roque Consulting Providers: Frances Rahman Instructions Patient Instructions: C Diff Infect Additional Instructions / Restrictions: DISCHARGE INSTRUCTIONS PLEASE READ *Please take this with you to your next doctors appointment* - You briefly had an irregular heart rhythm that resolved once you were given IV fluid. Please discuss this with your primary care provider on discharge as it is possible they may want to discuss starting a blood thinner versus watching for recurrence -Would recommend lab work (BMP) to check your potassium and kidney function in 2 to 3 days through your primary care physician's office. Please call their office upon discharge to obtain order for lab work. - Please follow closely with your primary care physician. Would recommend holding your lisinopril?hydrochlorothiazide until you can follow-up for blood pressure check and potentially labs if there are any concerns that kidney function may have worsened - Records indicate you are taking metoprolol to tartrate 100 mg daily, would recommend taking half a tab twice a day (50 mg twice a day) instead due to the duration of action of this medication. - You will need to take 2 more doses of vancomycin today followed by vancomycin 4 times daily for 7 additional days. A prescription for this was sent into [facility] in [place], [place], your pharmacy on file -Try to use a separate bathroom if you have diarrhea from C. diff infection. If you can't, be sure the commonly touched surfaces in the bathroom are cleaned before others use it -Take showers and wash with soap to remove any C. diff germs you could have on your body. -Do not cook food for others while you have diarrhea. -Clostridium difficile (C. diff) germs can stay on your hands after you use the bathroom, then spread to any person, surface, or objects you touch. Washing your hands often is one of the best ways to not spread C. diff. Remind your relatives and friends to do the same. -To wash your hands: Rinse your hands first, then scrub with soap for at least 20 seconds. If you need a timer, hum the Happy Birthday song twice while you wash. Rinse your hands well and dry them. Below are more tips for good handwashing. -Always wash hands: After using the bathroom Before and after preparing food Before and after eating After touching any object or surface that may have C. diff germs on it Alcohol-based mash preparatory operator don't work against C. diff germs. Scrub your hands for 20 seconds with clean, running water and soap. -Cleaning and disinfecting surfaces and laundry, especially if someone is sick in your home already, can reduce your risk of C. diff infection -How to wash: Use the hottest water that is safe for items. Use chlorine bleach if you can safely do so without damaging items (You can use a bleach-based fish cleaner machine tender, or make your own by mixing 1 cup (240 mL) of bleach with 10 cups (2365 mL) of water to clean any hard surfaces in your home.) Consider wearing gloves while handling items. Always wash hands with soap and water after handling laundry, even if you wore gloves -Any time antibiotics are used they can cause side effects, including C. diff infection. Take antibiotics only when you need them, and talk to a healthcare professional about the best treatment for your illness -Stay home from work and school until you stop having diarrhea. Resume every day life when symptoms stop -Drink adequate fluids -It is possible to have a recurrence of C. Diff. If you have recurrent diarrhea or concerns please contact your primary care provider as you may need to be retested and possibly treated again -Please call your primary care provider's office upon discharge to schedule a hospital follow up within 1 week. -For any concerning signs or symptoms please call 911 or proceed to the nearest emergency department Discharge Orders/Prescriptions Prescriptions: New vancomycin [Firvanq] 25 mg/mL Recon Soln 125 mg PO 4X/DAY 7 Days Qty: 150 0RF Rx Instructions: You need 2 more doses today then 4x daily for 7 more days Continued amlodipine 5 mg tablet 5 mg PO DAILY Qty: 30 0RF Changed metoprolol tartrate 100 MG tablet 50 mg PO BID Qty: 90 0RF Held potassium chloride 10 MEQ tablet extended release 10 meq PO DAILY Hold Instructions: Resume on 10/23/25. lisinopril-hydrochlorothiazide 1 EACH tablet 1 tab PO DAILY Qty: 0 0RF Hold Instructions: Resume on 10/23/25. Discontinued amoxicillin-pot clavulanate 875-125 mg tablet 1 tab PO BID Qty: 14 0RF Referrals / Follow Up: Luis Angel Roque MD [Primary Care Provider, Family Practice] - Within 1 Week Disposition Disposition (needs filled in before D/C Order can be placed): Home, Self Care Charges/Coding Visit Charges Inpatient E&M: 99487 Disch Hosp >30min
--- NOTE | 2025-10-15 11:46 | PCM.DC ---
Discharge Instructions DC O2, CPAP, BIPAP needs Home O2 Discharge instructions: No Dressing / Incision Discharge Activity: - (Return to normal activity once diarrhea resolves) Follow Up Care Test Results: Test results from this visit will be discussed in further detail at your follow-up appointment, if applicable. Discharge Plan Admission Admit Date/Time: 10/12/25 06:13 Primary Reason for Your Visit: Diarrhea and dehydration Attending Provider: Renata Montana Primary Care Provider: Luis Angel Roque Consulting Providers: Frances Rahman Instructions Patient Instructions: C Diff Infect Additional Instructions / Restrictions: DISCHARGE INSTRUCTIONS PLEASE READ *Please take this with you to your next doctors appointment* - You briefly had an irregular heart rhythm that resolved once you were given IV fluid. Please discuss this with your primary care provider on discharge as it is possible they may want to discuss starting a blood thinner versus watching for recurrence -Would recommend lab work (BMP) to check your potassium and kidney function in 2 to 3 days through your primary care physician's office. Please call their office upon discharge to obtain order for lab work. - Please follow closely with your primary care physician. Would recommend holding your lisinopril?hydrochlorothiazide until you can follow-up for blood pressure check and potentially labs if there are any concerns that kidney function may have worsened - Records indicate you are taking metoprolol to tartrate 100 mg daily, would recommend taking half a tab twice a day (50 mg twice a day) instead due to the duration of action of this medication. - You will need to take 2 more doses of vancomycin today followed by vancomycin 4 times daily for 7 additional days. A prescription for this was sent into [facility] in [place], [place], your pharmacy on file -Try to use a separate bathroom if you have diarrhea from C. diff infection. If you can't, be sure the commonly touched surfaces in the bathroom are cleaned before others use it -Take showers and wash with soap to remove any C. diff germs you could have on your body. -Do not cook food for others while you have diarrhea. -Clostridium difficile (C. diff) germs can stay on your hands after you use the bathroom, then spread to any person, surface, or objects you touch. Washing your hands often is one of the best ways to not spread C. diff. Remind your relatives and friends to do the same. -To wash your hands: Rinse your hands first, then scrub with soap for at least 20 seconds. If you need a timer, hum the Happy Birthday song twice while you wash. Rinse your hands well and dry them. Below are more tips for good handwashing. -Always wash hands: After using the bathroom Before and after preparing food Before and after eating After touching any object or surface that may have C. diff germs on it Alcohol-based train braker don't work against C. diff germs. Scrub your hands for 20 seconds with clean, running water and soap. -Cleaning and disinfecting surfaces and laundry, especially if someone is sick in your home already, can reduce your risk of C. diff infection -How to wash: Use the hottest water that is safe for items. Use chlorine bleach if you can safely do so without damaging items (You can use a bleach-based aircraft cabin cleaner, or make your own by mixing 1 cup (240 mL) of bleach with 10 cups (2365 mL) of water to clean any hard surfaces in your home.) Consider wearing gloves while handling items. Always wash hands with soap and water after handling laundry, even if you wore gloves -Any time antibiotics are used they can cause side effects, including C. diff infection. Take antibiotics only when you need them, and talk to a healthcare professional about the best treatment for your illness -Stay home from work and school until you stop having diarrhea. Resume every day life when symptoms stop -Drink adequate fluids -It is possible to have a recurrence of C. Diff. If you have recurrent diarrhea or concerns please contact your primary care provider as you may need to be retested and possibly treated again Discharge Orders/Prescriptions Prescriptions: New vancomycin [Firvanq] 25 mg/mL Recon Soln 125 mg PO 4X/DAY 7 Days Qty: 150 0RF Rx Instructions: You need 2 more doses today then 4x daily for 7 more days Continued amlodipine 5 mg tablet 5 mg PO DAILY Qty: 30 0RF Changed metoprolol tartrate 100 MG tablet 50 mg PO BID Qty: 90 0RF Held potassium chloride 10 MEQ tablet extended release 10 meq PO DAILY Hold Instructions: Resume on 10/23/25. lisinopril-hydrochlorothiazide 1 EACH tablet 1 tab PO DAILY Qty: 0 0RF Hold Instructions: Resume on 10/23/25. Discontinued amoxicillin-pot clavulanate 875-125 mg tablet 1 tab PO BID Qty: 14 0RF Referrals / Follow Up: Luis Angel Roque MD [Primary Care Provider, Family Practice] - Within 1 Week Disposition Disposition (needs filled in before D/C Order can be placed): Home, Self Care
[2025-10-15 12:21] VITALS: BP 117/68; PULSE 72; RESP 16; TEMP 36.1; O2SAT 99
[2025-10-15] MEDS: Na Biphos/Potassium Phosphate PACKET 1 PACKET PO (12:47)
== END 2025-10-15 16:26 | disposition home or self-care (01) | DRG 683 ==
LOC: ED 05:58 → ICU 06:28 → PCU 17:14
PROVIDERS: Admitting Provider Internal Medicine; Emergency Provider Emergency Medicine; PCP Family Medicine; Visit Provider Internal Medicine
DX: N17.9 Acute kidney failure, unspecified (principal); A04.72 Enterocolitis due to Clostridium difficile, not specified as recurrent; I10 Essential (primary) hypertension; I48.91 Unspecified atrial fibrillation; D72.829 Elevated white blood cell count, unspecified; I95.9 Hypotension, unspecified; R34 Anuria and oliguria; Z87.891 Personal history of nicotine dependence; R79.89 Other specified abnormal findings of blood chemistry; Z79.899 Other long term (current) drug therapy
CPT/HCPCS: 36415; 71046; 80048; 81001; 82570; 83605; 83735; 84100; 84300; 84443; 84484; 85025; 85027; 87086; 87493; 87506; 93005; 93306; 99285; A4216